=== PATIENT | female | born 1970 | race Caucasian/White ===

== ENCOUNTER 2023-10-14 21:51 | Emergency (ER) | payer OTHER, SELFPAY ==
[2023-10-14 22:01] VITALS: BP 164/102; PULSE 100; RESP 16; TEMP 36.6; O2SAT 100; BMI 32.7
--- NOTE | 2023-10-14 22:21 | XR_ITS ---
The [address] [address] Patient Name: VERONICA NATION MRN: [id number] date: 1970 Sex: F Assigned Patient Location: ED.MAIN Current Patient Location: ER Accession/Order Number: [id number] Exam Date: 10/14/2023 22:45 Report Date: 10/14/2023 23:36 At the request of: SCAR BAILEY Procedure: XR foot RT min 3V EXAM: XR foot RT min 3V HISTORY: The patient is a 52-year-old female, injury COMPARISON: None. FINDINGS: The right foot is radiographically negative with no evidence of fracture, dislocation, joint space narrowing, osteophytes, or other osseous or articular abnormalities. XR/XR foot RT min 3V IMPRESSION: Radiographically negative right foot. Electronically authenticated by: CORINNE WADE Date: 10/14/2023 23:36
--- NOTE | 2023-10-14 22:21 | CT_ITS ---
The [address] [address] Patient Name: VERONICA NATION MRN: [id number] date: 1970 Sex: F Assigned Patient Location: ER Current Patient Location: ER Accession/Order Number: [id number] Exam Date: 10/14/2023 22:45 Report Date: 10/14/2023 23:57 At the request of: SCAR BAILEY Procedure: CT abdomen pelvis w con EXAM: CT abdomen pelvis w con HISTORY: injury. R CVA pain COMPARISON: None. TECHNIQUE: Intravenous contrast-enhanced axial CT of the abdomen and pelvis was performed with coronal and sagittal reformats provided. FINDINGS: Lung bases: See same day chest CT for further details. ABDOMEN: Liver: Normal. Gallbladder/biliary: Status post cholecystectomy. Pancreas: Normal. Spleen: Normal. Adrenals: Normal. Kidneys, ureters and urinary bladder: Normal. Pelvis: Normal size of the uterus. No adnexal masses. Vasculature: Normal. Hollow viscera/retroperitoneum: Normal appearance of the gastroesophageal junction. The small bowel is normal caliber. Appendix is normal. No focal colonic wall thickening. No mesenteric or pelvic lymphadenopathy. No intra-abdominal free fluid or free air. Musculoskeletal/soft tissues: Soft tissues are within normal limits. No acute fracture or aggressive osseous abnormality. CT/CT abdomen pelvis w con IMPRESSION: No acute intra-abdominal or pelvic abnormality. Electronically authenticated by: AKHIL GOINS Date: 10/14/2023 23:57
--- NOTE | 2023-10-14 22:21 | XR_ITS ---
The [address] [address] Patient Name: VERONICA NATION MRN: [id number] date: 1970 Sex: F Assigned Patient Location: ED.MAIN Current Patient Location: ER Accession/Order Number: [id number] Exam Date: 10/14/2023 22:45 Report Date: 10/14/2023 23:42 At the request of: SCAR BAILEY Procedure: XR ankle RT min 3V EXAM: XR ankle RT min 3V HISTORY: The patient is a 52-year-old female, injury COMPARISON: None. FINDINGS: There is a small chronic appearing ununited ossicle off the tip of the medial malleolus. No acute fractures are seen within or around the ankle joint. The ankle mortise is intact and uniform. The syndesmosis is maintained. No soft tissue swelling is seen. XR/XR ankle RT min 3V IMPRESSION: No radiographic findings of acute trauma of the right ankle. Electronically authenticated by: CORINNE WADE Date: 10/14/2023 23:42
--- NOTE | 2023-10-14 22:21 | CT_ITS ---
The [address] [address] Patient Name: VERONICA NATION MRN: [id number] date: 1970 Sex: F Assigned Patient Location: ER Current Patient Location: ER Accession/Order Number: [id number] Exam Date: 10/14/2023 22:45 Report Date: 10/14/2023 23:41 At the request of: SCAR BAILEY Procedure: CT lumbar spine wo con EXAM: CT lumbar spine wo con HISTORY: The patient is a 52-year-old female, injury COMPARISON: None. TECHNIQUE: CT images were obtained through the lumbar spine without intravenous contrast and reformatted in 2 dimensions. Dose reduction techniques were achieved by using automated exposure control and/or adjustment of mA and/or kV according to patient size and/or use of iterative reconstruction technique. FINDINGS: The axial images demonstrate no fractures or cortical discontinuities throughout the lumbar spine. The alignment of the sacroiliac joints is maintained. The coronal and sagittal reformatted images demonstrate no fractures or loss of vertebral body height throughout the lumbar spine. There is mild congenital wedging of the L1 vertebral body. There is no malalignment throughout the lumbar spine. There is mild narrowing of the L4-L5 disc. The soft tissue images demonstrate evidence of a disc herniation and posterior element hypertrophy at the L4-L5 level. If clinically necessary, the degree of central canal stenosis and neural foraminal narrowing could be better evaluated with an MRI of the lumbar spine. CT/CT lumbar spine wo con IMPRESSION: 1. No fractures or loss of vertebral body height throughout the lumbar spine. 2. Degenerative disc disease at the L4-L5 level. Electronically authenticated by: CORINNE WADE Date: 10/14/2023 23:41
--- NOTE | 2023-10-14 22:21 | XR_ITS ---
The [address] [address] Patient Name: VERONICA NATION MRN: [id number] date: 1970 Sex: F Assigned Patient Location: ED.MAIN Current Patient Location: ER Accession/Order Number: [id number] Exam Date: 10/14/2023 22:45 Report Date: 10/14/2023 23:34 At the request of: SCAR BAILEY Procedure: XR knee RT 3V EXAM: XR knee RT 3V HISTORY: The patient is a 52-year-old female, injury COMPARISON: None. XR/XR knee RT 3V IMPRESSION: No fractures or dislocations are seen throughout the right knee. Small osteophytes are present indicating early tricompartment osteoarthritis. Electronically authenticated by: CORINNE WADE Date: 10/14/2023 23:34
--- NOTE | 2023-10-14 22:21 | CT_ITS ---
The [address] [address] Patient Name: VERONICA NATION MRN: [id number] date: 1970 Sex: F Assigned Patient Location: ED.MAIN Current Patient Location: ER Accession/Order Number: [id number] Exam Date: 10/14/2023 22:45 Report Date: 10/14/2023 23:48 At the request of: SCAR BAILEY Procedure: CT chest w con EXAM: CT chest w con HISTORY: injury COMPARISON: None. TECHNIQUE: Intravenous Contrast-enhanced axial CT of the chest was performed with coronal and sagittal reformats provided. FINDINGS: Neck/mediastinum: Imaged thyroid is normal. No supraclavicular, axillary, mediastinal or hilar lymphadenopathy. Cardiovascular: Normal heart size without pericardial effusion or thickening. Normal caliber of the ascending thoracic aorta and the main pulmonary artery. No central filling defects within the main or lobar branches of the pulmonary arteries. No aortic dissection. Lungs/pleura/airways: Trachea and mainstem bronchi are clear. No pneumothorax, pleural effusion or consolidation. Atelectasis or scarring of the lingula. No concerning pulmonary nodules. Upper abdomen: See same day abdomen pelvis CT for further details. Musculoskeletal/soft tissues: Soft tissues within normal limits. No acute fracture or aggressive osseous abnormality. CT/CT chest w con IMPRESSION: No acute cardiopulmonary process. Electronically authenticated by: AKHIL GOINS Date: 10/14/2023 23:48
--- NOTE | 2023-10-14 22:25 | ED.FALL1 ---
HPI - Fall General Chief Complaint: Fall Stated Complaint: FALL Time Seen by Provider: 10/14/23 22:17 Source: patient Mode of arrival: Wheelchair History of Present Illness HPI Narrative: patient states there were chair placed to block the dogs from getting through. She was stepping around the chairs when she got her foot caught and fell landing on her right side. Complains of pain of her back, right hip, knee and ankle. Denies striking her head. no chest pain or dyspnea. No abdominal pain or nausea Onset (ago): hour(s) Related Data Allergies Allergy/AdvReac Type Severity Reaction Status Date / Time codeine AdvReac Verified 10/14/23 22:00 naproxen [From Naprosyn] AdvReac Verified 10/14/23 22:00 Review of Systems ROS Status of ROS 10 or more systems reviewed and unremarkable except as noted in history and below [facility] Social History Smoking status: Former smoker Exam Constitutional Vital Signs, click to edit/add: Last Vital Signs Temp 97.8 F 10/14/23 22:01 Pulse 100 H 10/14/23 22:01 Resp 16 10/14/23 22:01 BP 142/89 H 10/15/23 00:06 Pulse Ox 100 10/14/23 22:01 O2 Del Method Room Air 10/14/23 22:01 Common normals: no apparent distress, average body habitus, oriented x3, no limitations, healthy appearing, alert and well nourished [facility] Common normals: normocephalic and head/scalp atraumatic Other: C-spine nontender Eye Common normals: EOMs intact bilaterally and conjunctivae normal Chest Other: right midaxillary chest wall tenderness Respiratory Common normals: normal respiratory effort, no retractions and no use of accessory muscles GI Common normals: Normal to inspection, nondistended, normoactive bowel sounds present and soft to palpation Back & Pelvis Other: right CVA tenderness Extremity Other: right hip, knee and ankle tender. no swelling or deformity Neuro Common normals: oriented x3, CN's II-XII intact bilaterally, moves all extremities and no focal motor deficits Psych Appearance: grossly normal Course Vital Signs Vital signs: Vital Signs Temperature 97.8 F 10/14/23 22:01 Pulse Rate 100 H 10/14/23 22:01 Respiratory Rate 16 10/14/23 22:01 Blood Pressure 164/102 H 10/14/23 22:01 Pulse Oximetry 100 10/14/23 22:01 Oxygen Delivery Method Room Air 10/14/23 22:01 Temperature 97.8 F 10/14/23 22:01 Pulse Rate 100 H 10/14/23 22:01 Respiratory Rate 16 10/14/23 22:01 Blood Pressure 142/89 H 10/15/23 00:06 Pulse Oximetry 100 10/14/23 22:01 Oxygen Delivery Method Room Air 10/14/23 22:01 MDM - Fall MDM Narrative Medical decision making narrative: patient step around a chair at home and got her foot caught in the chair and fell landing on her right side. Has pain of her right back. hip , right knee and ankle. Denies striking her head. No numbness or weakness of her extremities. diagnostic studies all neg. Patient and her informed of the diagnosis of musculoskeletal strain, contusion injuries. Discharged home in stable condition to follow up with her doctor Lab Data Labs: Lab Results 10/14/23 Range/Units 22:45 WBC 9.7 (4.0-11.0) 10^3/uL RBC 3.78 L (4.20-5.40) 10^6/uL Hgb 11.4 L (12.0-16.0) g/dL Hct 35.0 L (36.0-48.0) % MCV 92.6 (81.0-99.0) fL MCH 30.2 (26.7-34.0) pg MCHC 32.6 (29.9-35.2) g/dL RDW 12.5 (11.0-15.0) % Plt Count 330 (150-450) 10^3/uL MPV 10.4 (9.5-13.5) fL Neut % (Auto) 56.4 (43.0-75.0) % Lymph % (Auto) 33.0 (20.5-60.0) % [place] % (Auto) 6.2 (1.7-12.0) % Eos % (Auto) 3.0 (0.9-7.0) % Baso % (Auto) 1.1 (0.2-2.0) % Neut # (Auto) 5.5 (1.4-6.5) 10^3/uL Lymph # (Auto) 3.2 (1.2-3.8) 10^3/uL [place] # (Auto) 0.6 (0.3-0.8) 10^3/uL Eos # (Auto) 0.3 (0.0-0.7) 10^3/uL Baso # (Auto) 0.1 (0.0-0.1) 10^3/uL Abs Immat Gran (auto) 0.03 (0.00-0.03) 10^3/uL Imm/Tot Granulo (auto) 0.3 (0.0-0.5) % Sodium 135 L (136-145) mmol/L Potassium 4.5 (3.5-5.1) mmol/L Chloride 101 (98-107) mmol/L Carbon Dioxide 29.6 (21.0-32.0) mmol/L Anion Gap 8.9 BUN 28.0 H (7.0-18.0) mg/dL Creatinine 1.28 H (0.55-1.02) mg/dL Est GFR ( Amer) 53 L (>=60) Est GFR (Non-Af Amer) 43 L (>=60) BUN/Creatinine Ratio 21.9 Glucose 219 H (74-106) mg/dL Calcium 9.0 (8.5-10.1) mg/dL Total Bilirubin 0.2 (0.2-1.0) mg/dL AST 14 L (15-37) U/L ALT 24 (14-59) U/L Alkaline Phosphatase 79 (46-116) U/L Total Protein 7.5 (6.4-8.2) g/dL Albumin 3.2 L (3.4-5.0) g/dL Globulin 4.3 g/dL Albumin/Globulin Ratio 0.7 Discharge Plan Discharge Chief Complaint: Fall Clinical Impression: Contusion of knee, Back strain, Contusion of rib, Contusion of hip, right, Ankle strain Patient Disposition: Home, Self-Care Instructions: Low Back Strain (ED), Contusion in Adults (ED), Hip Contusion (ED), Ankle Strain (ED) Stand Alone Forms: Portal Instructions Referrals: AILYN WILLIS [Primary Care Provider] - 1 week
[2023-10-14 23:00] LABS: Basophils Absolute Auto 0.1 10^3/uL (0.0-0.1); Basophils Percent Auto 1.1 % (0.2-2.0); Eosinophils Absolute Auto 0.3 10^3/uL (0.0-0.7); Hemoglobin 11.4 g/dL (12.0-16.0); Immature Granulocytes Abs Auto 0.03 10^3/uL (0.00-0.03); Immature Granulocytes Pct Auto 0.3 % (0.0-0.5); Lymphocytes Absolute Auto 3.2 10^3/uL (1.2-3.8); Mean Corpuscular HGB Conc 32.6 g/dL (29.9-35.2); Mean Corpuscular Hemoglobin 30.2 pg (26.7-34.0); Mean Corpuscular Volume 92.6 fL (81.0-99.0); Mean Platelet Volume 10.4 fL (9.5-13.5); Monocytes Absolute Auto 0.6 10^3/uL (0.3-0.8); Monocytes Percent Auto 6.2 % (1.7-12.0); Neutrophils Absolute Auto 5.5 10^3/uL (1.4-6.5); Neutrophils Percent Auto 56.4 % (43.0-75.0); Platelet Count 330 10^3/uL (150-450); Red Blood Count 3.78 10^6/uL (4.20-5.40); Red Cell Distribution Width 12.5 % (11.0-15.0); White Blood Count 9.7 10^3/uL (4.0-11.0)
[2023-10-14 23:16] LABS: Alanine Aminotransferase 24 U/L (14-59); Albumin Globulin Ratio 0.7; Albumin Level 3.2 g/dL (3.4-5.0); Alkaline Phosphatase 79 U/L (46-116); Anion Gap 8.9; Aspartate Amino Transferase 14 U/L (15-37); BUN Creatinine Ratio 21.9; Bilirubin Total 0.2 mg/dL (0.2-1.0); Carbon Dioxide 29.6 mmol/L (21.0-32.0); Chloride 101 mmol/L (98-107); Estimated GFR (African America 53 (>=60); Estimated GFR (Non-African Ame 43 (>=60); Globulin 4.3 g/dL; Glucose 219 mg/dL (74-106); Potassium 4.5 mmol/L (3.5-5.1); Sodium 135 mmol/L (136-145); Total Protein 7.5 g/dL (6.4-8.2)
[2023-10-14] MEDS: MORPHINE SULFATE 2 MG/ML SYRINGE IV (23:28)
[2023-10-15 00:06] VITALS: BP 142/89
== END 2023-10-15 01:14 | disposition home or self-care (01) ==
PROVIDERS: Emergency Provider Internal Medicine; PCP Family Medicine
DX: S70.01XA Contusion of right hip, initial encounter (principal); S80.01XA Contusion of right knee, initial encounter; S39.012A Strain of muscle, fascia and tendon of lower back, initial encounter; S96.911A Strain of unspecified muscle and tendon at ankle and foot level, right foot, initial encounter; S20.211A Contusion of right front wall of thorax, initial encounter; W01.10XA Fall on same level from slipping, tripping and stumbling with subsequent striking against unspecified object, initial encounter; Z87.891 Personal history of nicotine dependence
CPT/HCPCS: 36415; 71260; 72131; 73562; 73610; 73630; 74177; 80053; 85025; 99283; Q9967

== ENCOUNTER 2024-08-07 09:57 | Emergency (ER) | payer BC, SELFPAY ==
[2024-08-07 09:59] VITALS: BP 166/95; PULSE 140; TEMP 36.3; O2SAT 98; BMI 32.7
--- OUTSIDE RECORDS SUMMARY | 2024-08-07 10:16 | XMS_ITS | CCD ---
Author Organization [facility] Care Team Providers Care Access Specialist Name Role Phone Ailyn Willis Primary Care Provider Unavailab le Jake House Attending Provider Unavailable KIANA MCKINNON Referring Unavailable LAZARO, AILYN Primary Care Unavailable KIANA MCKINNON Referring Unavailable LAZARO, AILYN Primary Care Unavailable KIANA MCKINNON Referring Unavailable AILYN WILLIS Primary Care Unavailable Lazaro BOURGEOIS, Ailyn Primary Care Provider Unavaila ble ARIADNA, MARLIN S Referring Unavailable WILLIS, AILYN Primary Care Unavailable ARIADNA, MARLIN S Referring Unavailable WILLIS, AILYN Primary Care Unavailable ARIADNA, MARLIN S Referring Unavailable WILLIS, AILYN Primary Care Unavailable ARIADNA, MARLIN S Referring Unavailable WILLIS, AILYN Primary Care Unavailable ARIADNA, MARLIN S Referring Unavailable WILLIS, AILYN Primary Care Unavailable ARIADNA, MARLIN S Referring Unavailable WILLIS, AILYN Primary Care Unavailable ARIADNA, MARLIN S Referring Unavailable WILLIS, AILYN Primary Care Unavailable Mapus, Tondra Unavailable Ailyn Willis Unavailable Marlin Ivan Unavailable DO Ailyn Willis Primary Care Provider [place], [employer] Tondra K Attending Provider [phone] DO Ailyn Willis Primary Care Provider [place], [employer] Tondra K Attending Provider [phone] DO Ailyn Willis Primary Care Provider [place], [employer] Tondra K Attending Provider [phone] MD Char Nuñez Attending Provider Paty Guaman Unavailable Hernesto Mckenzie Admitting Unavail able Hernesto Mckenzie Attending Unavail able AILYN WILLIS Primary Care Unavailable Navya Atkinson Unavailable DO Ailyn Willis Primary Care Provider MD Char Nuñez Attending Provider MapSWATHI miller Tondra K Referring Provider SWATHI House Attending Provider DO Ailyn Willis Primary Care Provider DO Ailyn Willis Attending Provider Ailyn Willis Admitting Unavailable Ailyn Willis Attending Unavailable Ailyn Willis Primary Care Unavailable Char Nuñez Admitting Unavailable Char Nuñez Attending Unavailable Lacy, Tondra K Referring Unavailable Ailyn Willis Primary Care Unavailable Ailyn Willis Consulting Unavailable Mapus, Tondra K Admitting Unavailable Mapus, Tondra K Attending Unavailable Ailyn Willis Primary Care Unavailable Mapus, Tondra K Admitting Unavailable [place], Tondra K Attending Unavailable Ailyn Willis Primary Care Unavailable Unavailable Unavailable Unavailable Allergies Allergy Classification Reported Allergen(s) Allergy Type Date of Onset Reaction(s) Facility (20 sources) Codeine; Translations: [codeine] Drug Allergy 12-25-2018 Rash, Unknown [facility] (20 sources) Naproxen; Translations: [naproxen] Drug Allergy 12-25-2018 Anaphylaxis, Unknown [facility] Medications Current Medications Medication Drug Class(es) Dates Sig (Normalized) Sig (Original) 0.5 ML tirzepatide 5 MG/ML Auto-Injector [Mounjaro] (2 sources) Start: 10-06-2023 inject 2.5 mg by subcutaneous injection every week Mounjaro 2.5 MG/0.5ML 2.5mg Subcutaneous once weekly for 28 days Sep, Active 8 hr acetaminophen 650 mg extended release oral tablet (20 sources) Start: 01-12-2024 take 1 tablet by mouth every twelve hours Acetaminophen (Tylenol Arthritis Pain) 650 mg tablet extended release Active 650 MG PO Every 12 hours January 12, 2024 12:00am take 2 tablets by mo ut every eight hours Acetaminophen ER 650 MG 2 tablets as nee ded Orally every 8 hrs PRN Active take 2 tablets by mo uth every eight hours as needed Acetaminophen ER 650 MG 2 tablets as nee ded Orally every 8 hrs PRN Active Blood-Glucose Sensor (Dexcom G6 Sensor) device (2 sources) Start: 12-27-2023 Blood-Glucose Sensor (Dexcom G6 Sensor) device Active 0 .MEDSUPPLY December 27, 2023 1:00am As directed SQ, Change every 10 days Blood-Glucose Transmitter (Dexcom G6 Transmitter) device (2 sources) Start: 12-27-2023 Blood-Glucose Transmitter (Dexcom G6 Transmitter) device Active 0 .Route 1 December 27, 2023 1:00am As directed SQ, Change every 90 days cetirizine hydrochloride 10 mg oral tablet (20 sources) Histamine-1 Receptor Antagonist take 1 tablet by mouth once daily ZyrTEC Allergy 10 MG 1 tablet Orally Once a day Active cholecalciferol 0.05 mg oral capsule (8 sources) Vitamin D Start: 11-18-2018 take 1 capsule by mouth once daily Cholecalciferol (Vitamin D3) (Vitamin D3) 2,000 unit Capsule Active 2000 UNIT PO Daily November 18, 2018 1:00am FreeStyle Kellen 2 Sensor - (9 sources) FreeStyle Kellen 2 Sensor - USE DIRECTED WITH KELLEN READER TO CHECK GLUCOSE BEFORE A MEAL, EVERY NIGHT AT BEDTIME, AND NEEDED - CHANGE EVERY 14 DAYS for 28 Active FreeStyle Kellen 2 Sensor Systm - (18 sources) FreeStyle Kellen 2 Sensor Systm - as directed use with kellen reader change q 14 days, check glucose ac, hs and prn for 84 days Active FreeStyle Precision James Test - (20 sources) FreeStyle Precis ion James Test - use with Freestyle Kellen SQ tid prn Active FreeStyle Precis ion James Test - USE WITH FREESTYLE KELLEN TO TEST THREE TIMES A DAY NEEDED for 90 Active 0.2 ml glucagon 5 mg/ml auto-injector (4 sources) Antihypoglycemic Agent Start: 12-15-2022 Gvoke HypoPen 2-Pack 1 MG/0.2ML as directed Subcutaneous prn hypoglycemia may repeat in 15 minutes for 1 days Dec, Active 3 ml insulin degludec 100 unt/ml pen injector (2 sources) Insulin Analog Start: 10-06-2023 inject 31 [IU] by subcutaneous injection once daily Tresiba FlexTouch 100 UNIT/ML 31 units daily if off insulin pump. Must wait 24 hours after last dose before restarting insulin pump Subcutaneous as directed Sep, Active Insulin Lispro (Humalog U-100 Insulin) 100 unit/mL solution (2 sources) Start: 01-12-2024 inject 90 [IU] by subcutaneous injection once daily Insulin Lispro (Humalog U-100 Insulin) 100 unit/mL solution Active 0 SUBCUT .COMPLEX January 12, 2024 12:00am 90 units insulin pump daily Subcutaneous As Directed; Insulin Pump Cart,Automated,Bt (Omnipod 5 G6 Pods (Gen 5)) cartridge (7 sources) Start: 04-23-2024 Insulin Pump Cart,Automated,B t (Omnipod 5 G6 Pods (Gen 5)) cartridge Active 0 .ROUTE .COMPLEX April 23, 2024 9:56am use as directed with OMNIPOD SYSTEM - CHANGE every 72 hours Start: 03-23-2024 End: 04-23-2024 Insulin Pump Cart,Automated, Bt (Omnipod 5 G6 Pods (Gen 5)) cartridge Discontinued 0 .ROUTE .COMPLEX March 23, 2024 7:36am April 23, 2024 9:56am USE DIRECTED WITH OMNIPOD SYSTEM SUBCUTANEOUSLY - CHANGE EVERY 72 HOURS Start: 02-13-2024 End: 03-23-2024 Insulin Pump Cart,Automated, Bt (Omnipod 5 G6 Pods (Gen 5)) cartridge Discontinued 0 .Route 2 February 13, 2024 10:17am March 23, 2024 7:37am As directed Use with OmniPod system SQ, Change every 72 hours Start: 12-27-2023 End: 02-13-2024 Insulin Pump Cart,Automated, Bt (Omnipod 5 G6 Pods (Gen 5)) cartridge Discontinued 0 .Route 6 December 27, 2023 4:16pm February 13, 2024 10:19am As directed Use with OmniPod system SQ, Change every 72 hours Start: 12-27-2023 Insulin Pump C art,Automated,Bt (Omnipod 5 G6 Pods (Gen 5)) cartridge Active 0 .Route 6 December 27, 2023 4:16pm As directed Use with OmniPod system SQ, Change every 72 hours Start: 12-27-2023 End: 12-27-2023 Insulin Pump Cart,Automated, Bt (Omnipod 5 G6 Pods (Gen 5)) cartridge Discontinued 0 .Route December 27, 2023 1:00am December 27, 2023 4:18pm As directed levothyroxine sodium 0.15 mg oral tablet (20 sources) l-Thyroxine Start: 01-02-2024 take 1 tablet by mouth once daily Levothyroxine (Synthroid) 150 mcg tablet Active 150 MCG PO Daily January 02, 2024 1:00am Start: 08-31-2022 take 1 tablet by gail th once daily in the morning Levothyroxine Sodium 150 MCG 1 tablet in the morning on an empty stomach Orally Once a day for 90 day(s) stop levothyroxine 175mcg dose Aug, Active Start: 11-18-2018 End: 01-02-2024 take 1 tablet by mouth once daily Levothyroxine (Synthroid) 137 mcg Tablet Discontinued 137 MCG PO Daily November 18, 2018 1:00am January 02, 2024 10:09am Levothyroxine So dium 137 MCG take 1 tablet by mouth every morning ON AN EMPTY STOMACH Orally Once a day for 90 days Active take 1 tablet by gail th once daily in the morning Levothyroxine Sodium 175 MCG 1 tablet on an empty stomach in the morning orally daily for 90 day(s) Active magnesium oxide 400 mg oral capsule (20 sources) Start: 11-18-2018 take 400 mg by mouth once daily Magnesium Oxide Active 400 MG PO Daily November 18, 2018 1:00am take 1 capsule by mouth once farrah ly Magnesium Oxide 400 MG 1 capsule Orally Once a day Active 24 hr metoprolol succinate 50 mg extended release oral tablet (20 sources) beta-Adrenergic Joelle Start: 01-02-2024 End: 01-02-2024 take 50 mg by mouth once daily Metoprolol Succinate Active 50 MG PO Daily 90 January 02, 2024 10:29am Start: 11-18-2018 End: 01-02-2024 take 50 mg by mouth once daily Metoprolol Tartrate Dis continued 50 MG PO Daily November 18, 2018 1:00am January 02, 2024 10:29am Metoprolol Succi maddison ER 50 mg TAKE 1 TABLET DAILY (NEEDS AN APPOINTMENT IN 2021) Active Omnipod 5 G6 Pod (Gen 5) - (19 sources) Start: 06-29-2022 Omnipod 5 G6 P od (Gen 5) - Use with OmniPod 5 system SQ Change every 72 hours for 90 day(s) E11.8 May, Active Omnipod 5 G6 Pod (Gen 5) - Use with OmniPod 5 system SQ Change every 72 hours for 90 day(s) Active predniSONE 20 mg oral tablet (5 sources) Start: 07-07-2022 take 1 tablet by mouth every twelve hours predniSONE 20 MG 1 tablet Orally 2 times a day for 5 day(s) Jul, Active vitamin b12 1 mg oral capsule (2 sources) Vitamin B12 Start: 01-12-2024 take 1000 ug by mouth once daily Cyanocobalamin (Vitamin B-12) Active 1000 MCG PO daily January 12, 2024 12:00am Vitamin D 2000 UNIT (20 sources) Vitamin D 2000 U NIT Orally Active Vitamin D 2000 U NIT Orally Not-Taking Completed/Discontinued Medications Medication Drug Class(es) Dates Sig (Normalized) Sig (Original) acetaminophen 325 mg / HYDROcodone bitartrate 5 mg oral tablet (6 sources) Opioid Agonist Start: 11-18-2018 End: 12-25-2018 take 1 tablet by mouth every four hours Hydrocodone-Aceta minophen ([place]) 5-325 mg tablet Discontinued 1 TAB PO Q4H 10 2 November 18, 2018 December 25, 2018 7:53pm amoxicillin 875 mg oral tablet (6 sources) Penicillin-class Antibacterial Start: 12-12-2018 End: 12-25-2018 take 875 mg by mouth twice daily Amoxicillin Discontinued 875 MG PO Twice daily December 12, 2018 1:00am December 25, 2018 7:53pm atorvastatin 20 mg oral tablet (20 sources) HMG-CoA Reductase Inhibitor Start: 11-18-2018 End: 01-06-2024 take 20 mg by mouth once daily Atorvastatin Discontinued 20 MG PO Daily January 02, 2024 10:27am January 06, 2024 1:26pm B-12 - up to 1000 mcg (20 sources) Start: 02-22-2013 B-12 - up to 1000 mcg Jan, 1 biotin 1 mg oral capsule (8 sources) Start: 11-18-2018 End: 01-12-2024 take 1 mg by mouth once daily Biotin Discontinued 1 MG PO Daily November 18, 2018 1:00am January 12, 2024 7:57am Cetirizine / Pseudoephedrine (6 sources) alpha-Adrenergic Agonist, Histamine-1 Receptor Antagonist Start: 01-06-2024 End: 05-01-2024 take 1 tablet by mouth once Cetirizine-Pseudo ephedrine Discontinued 1 TAB PO Once January 06, 2024 1:26pm May 01, 2024 7:38am Start: 01-06-2024 take 1 tablet by gail th once Cetirizine-Pseudoephedrine Active 1 TAB PO Once January 06, 2024 1:26pm Start: 01-02-2024 End: 01-06-2024 take 1 tablet by mouth once Cetirizine-Pseudoephedrine Discontinued 1 TAB PO Once January 02, 2024 10:27am January 06, 2024 1:26pm Start: 01-02-2024 End: 01-02-2024 take 1 tablet by mouth once Cetirizine-Pseudoephedrine Discontinued 1 TAB PO Once January 02, 2024 1:00am January 02, 2024 10:29am cranberry preparation 250 mg oral capsule (20 sources) Non-Standardized Food Allergenic Extract, Non-Standardized Plant Allergenic Extract Cranberry 250 MG Ora lly prn PRN Not-Taking Cranberry 250 MG Orally prn PRN Active Cranberry 250 MG Orally prn PRN Active cyclobenzaprine hydrochloride 10 mg oral tablet (8 sources) Muscle Relaxant Start: 11-18-2018 End: 01-02-2024 take 10 mg by mouth three times daily Cyclobenzaprine Discontinued 10 MG PO Three times daily November 18, 2018 1:00am January 02, 2024 10:06am diclofenac sodium 0.01 mg/mg topical gel (6 sources) Nonsteroidal Anti-inflammatory Drug Start: 12-12-2018 End: 12-25-2018 Diclofenac Sodium (Voltaren) 1 % gel Discontinued 4 GM TOPICAL Four times daily December 12, 2018 1:00am December 25, 2018 7:53pm Apply to R knee for pain (max 16 gr per day) [email or web address] 2 [place] - (17 sources) Start: 06-26-2021 FreeStyle Kellen 2 [place] - as directed In Vitro Daily for 365 days May, Not-Taking Start: 06-26-2021 FreeStyle Libr e 2 [place] - as directed In Vitro Daily for 365 days May, Active 3 ml insulin lispro 100 unt/ml cartridge (20 sources) Insulin Analog Start: 12-12-2018 End: 01-12-2024 Insulin Lispro (Humalog U-100 Insulin) 100 unit/mL Cartridge Discontinued December 12, 2018 1:00am January 12, 2024 7:54am inject 90 [IU] by hooker bcutaneous injection once daily HumaLOG 100 UNIT/ML 90 units insulin pum p daily Subcutaneous As Directed for 90 days Active inject 100 [IU] by s ubcutaneous injection once daily HumaLOG 100 UNIT/ML 100 units/day insuli n pump SQ as directed for 90 day(s) Active inject 100 [IU] by s ubcutaneous injection once Humalog U100 100 units/day per Pump SQ daily for 90 day(s) Active inject 100 [IU] by s ubcutaneous injection once Humalog U100 100 units/day per Pump SQ daily Active lisinopril 10 mg oral tablet (8 sources) Angiotensin Converting Enzyme Inhibitor Start: 11-18-2018 End: 01-02-2024 take 10 mg by mouth once daily Lisinopril Discontinued 10 MG PO Daily November 18, 2018 1:00am January 02, 2024 10:09am losartan potassium 25 mg oral tablet (20 sources) Angiotensin 2 Receptor Joelle Start: 01-02-2024 End: 01-06-2024 take 25 mg by mouth once daily Losartan Discontinued 25 MG PO Daily January 02, 2024 10:27am January 06, 2024 1:26pm Losartan Potassi um 25 mg TAKE 1 TABLET DAILY Active omeprazole 20 mg delayed release oral tablet (20 sources) Proton Pump Inhibitor Start: 11-18-2018 End: 01-06-2024 take 20 mg by mouth once daily Omeprazole Discontinued 20 MG PO Daily January 02, 2024 10:30am January 06, 2024 1:26pm take 1 capsule by [facility] every twenty-four hours Omeprazole 20 MG 1 capsule Orally Once a day Active Omnipod 5 G6 Intro (Gen 5) - (13 sources) Start: 06-29-2022 Omnipod 5 G6 I ntro (Gen 5) - Use with OmniPod 5 system SQ once for 365 days E11.8 May, Not-Taking Start: 06-29-2022 Omnipod 5 G6 I ntro (Gen 5) - Use with OmniPod 5 system SQ once for 365 days E11.8 30 May, 2022 Active promethazine hydrochloride 25 mg oral tablet (20 sources) Phenothiazine Start: 12-25-2018 End: 01-02-2024 take 25 mg by mouth every six hours Promethazine Discontinued 25 MG PO Q6H December 25, 2018 1:00am January 02, 2024 10:09am Start: 03-03-2015 take 1 tablet by gail th every twelve hours Promethazine HCl 25 MG 1 tablet as needed Orally every 12 hrs for 30 day(s) PRN February, Not-Taking Tirzepatide (4 sources) Start: 01-12-2024 End: 05-01-2024 Tirzepatide (Mounjaro) 2.5 m g/0.5 mL pen injector Discontinued 2.5 MG SUBCUT every week January 12, 2024 7:57am May 01, 2024 7:39am Start: 01-12-2024 Tirzepatide (M ounjaro) 2.5 mg/0.5 mL pen injector Active 2.5 MG SUBCUT every week January 12, 2024 7:57am Start: 01-02-2024 End: 01-12-2024 inject 2.5 mg by subcutaneous injection every week Tirzepatide (Mounjaro) 2.5 mg/0.5 mL pen injector Discontinued 2.5 MG SUBCUT January 02, 2024 1:00am January 12, 2024 7:59am FreeTextSi.5mg Subcutaneous once weekly; Note: Source Status: baljit doshi in office; Provider: Lacy Renteria {10 (nirmatrelvir 150 MG Oral Tablet) / 10 (ritonavir 100 MG Oral Tablet) } Pack [Paxlovid 150 MG /100 MG Dose Pack] (1 source) Start: 04-12-2023 take 1 dose by mouth twice daily Paxlovid (150/100) 10 x 150 MG & 10 x 100MG 1 dose Orally twice a day for 5 days 13 Mar, 2023 Not-Taking Problems Active Problems Problem Classification Problem Date Documented Date Episodic/Chronic Administrative/socia l admission (10 sources) Dietary counseling and surveillance; Translations: [Patient encounter status] Onset: 1 Resolved: 2 Episodic Chronic kidney disease (20 sources) Chronic kidney disease stage 3; Translations: [Chronic kidney disease, stage 3 (moderate)] Chronic Deficiency and other anemia (20 sources) Anemia of renal disease; Translations: [Anemia in chronic kidney disease] 01-02-2024 Chronic Diabetes mellitus with complications (20 sources) Disorder due to type 2 diabetes mellitus; Translations: [Type 2 diabetes mellitus with unspecified complications] Onset: 1 Resolved: 2 Chronic Diabetes mellitus without complication (20 sources) Patient encounter status; Translations: [Encounter for fitting and adjustment of insulin pump] Onset: 1 Resolved: 2 Chronic Diabetes mellitus without complication (20 sources) Insulin pump present; Translations: [Presence of insulin pump (external) (internal)] 01-12-2024 Episodic Diabetes mellitus without complication (1 source) Diabetes mellitus without complication; Translations: [Type 2 diabetes mellitus with diabetic chronic kidney disease] Onset: 3 Disorders of lipid metabolism (20 sources) Hyperlipidemia; Translations: [Hyperlipidemia, unspecified] Onset: 1 Resolved: 2 Chronic Essential hypertension (20 sources) Essential hypertension; Translations: [Essential (primary) hypertension] Onset: 1 Resolved: 2 Chronic Hypertension with complications and secondary hypertension (20 sources) Hypertensive renal disease; Translations: [Hypertensive chronic kidney disease with stage 1 through stage 4 chronic kidney disease, or unspecified chronic kidney disease] 01-02-2024 Chronic Nutritional deficiencies (20 sources) Vitamin D deficiency; Translations: [Vitamin D deficiency, unspecified] 01-02-2024 Chronic Nutritional deficiencies (6 sources) Deficiency of other specified B group vitamins Onset: 1 Resolved: 2 Episodic Other aftercare (20 sources) Long-term current use of insulin; Translations: [FCI (current) use of insulin] 01-02-2024 Episodic Other aftercare (7 sources) [facility] (current) use of insulin; Translations: [termite helper (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) use of insulin] Onset: 1 Resolved: 2 Episodic Other connective tissue disease (1 source) Pain in right toe(s) Episodic Other diseases of kidney and ureters (20 sources) Secondary hyperparathyroidism; Translations: [Secondary hyperparathyroidism of renal origin] 01-02-2024 Chronic Other endocrine disorders (10 sources) Hypoglycemia; Translations: [Hypoglycemia, unspecified] Chronic Other endocrine disorders (3 sources) Hypoglycemia, unspecified Chronic Other nutritional; endocrine; and metabolic disorders (20 sources) Obese class I; Translations: [Body mass index (BMI) 33.0-33.9, adult] Chronic Other nutritional; endocrine; and metabolic disorders (20 sources) Obese class II; Translations: [Body mass index (BMI) 35.0-35.9, adult] Chronic Other nutritional; endocrine; and metabolic disorders (20 sources) Body mass index 30+ - obesity; Translations: [Body mass index (BMI) 32.0-32.9, adult] 01-12-2024 Chronic Other nutritional; endocrine; and metabolic disorders (20 sources) Obesity; Translations: [Obesity, unspecified] Chronic Other nutritional; endocrine; and metabolic disorders (5 sources) Body mass index (BMI) 32.0-32.9, adult Onset: 1 Resolved: 2 Chronic Other nutritional; endocrine; and metabolic disorders (1 source) Body mass index (BMI) 33.0-33.9, adult Chronic Other nutritional; endocrine; and metabolic disorders (2 sources) Body mass index (BMI) 34.0-34.9, adult; Translations: [Body Mass Index 34.0-34.9, adult] 01-12-2024 Chronic Superficial injury; contusion (1 source) Contusion of right great toe without damage to nail, initial encounter Episodic Thyroid disorders (20 sources) Hypothyroidism; Translations: [Hypothyroidism, unspecified] Onset: 1 Resolved: 2 Chronic Past or Other Problems Problem Classification Problem Date Documented Da te Episodic/Chronic Allergic reactions (1 source) Unspecified contact dermatitis, unspecified cause Onset: 07-07-2022 Resolved: 07-07-2022 Episodic Genitourinary symptoms and ill-defined conditions (1 source) Proteinuria, unspecified Onset: 05-24-2022 Resolved: 05-24-2022 Episodic Other screening for suspected conditions (not mental disorders or infectious disease) (4 sources) Patient encounter status; Translations: [Encounter for screening mammogram for malignant neoplasm of breast] Onset: 02-25-2024 01-02-2024 Episodic Results Test Name Value Interpretation Reference Range Facility [facility] 08-04-2024 Albumin [Mass/Vol] 3.7 g/dL Normal 3.5-5.7 [facility] Comment on above: Performed By: #### L IPID, T4F, CMP, TSH3 wRFLX, URMACRERAT #### [address] Albumin/Globulin [Mass ratio] 1.2 {ratio} Normal [facility] Comment on above: Performed By: #### L IPID, T4F, CMP, TSH3 wRFLX, URMACRERAT #### [address] ALP [Catalytic activity/Vol] 75 U/L Normal 34-104 [facility] Comment on above: Performed By: #### L IPID, T4F, CMP, TSH3 wRFLX, URMACRERAT #### [address] ALT [Catalytic activity/Vol] 16 U/L Normal 7-52 [facility] Comment on above: Performed By: #### L IPID, T4F, CMP, TSH3 wRFLX, URMACRERAT #### [place] [address] [place] Anion gap [Moles/Vol] 8.8 mmol/L Normal 6.0-15.0 [facility] Comment on above: Performed By: #### L IPID, T4F, CMP, TSH3 wRFLX, URMACRERAT #### [address] AST [Catalytic activity/Vol] 17 U/L Normal 13-39 [facility] Comment on above: Performed By: #### L IPID, T4F, CMP, TSH3 wRFLX, URMACRERAT #### [facility] [address] [place] [address] Bilirubin [Mass/Vol] 0.6 mg/dL Normal 0.3-1.0 [facility] Comment on above: Performed By: #### L IPID, T4F, CMP, TSH3 wRFLX, URMACRERAT #### [address] Calcium [Mass/Vol] 9.2 mg/dL Normal 8.6-10.3 [facility] Comment on above: Performed By: #### L IPID, T4F, CMP, TSH3 wRFLX, URMACRERAT #### [address] Chloride [Moles/Vol] 105 mmol/L Normal 98-107 [facility] Comment on above: Performed By: #### L IPID, T4F, CMP, TSH3 wRFLX, URMACRERAT #### [address] CO2 [Moles/Vol] 28.2 mmol/L Normal 21.0-31.0 [facility] Comment on above: Performed By: #### L IPID, T4F, CMP, TSH3 wRFLX, URMACRERAT #### [address] Creatinine [Mass/Vol] 1.20 mg/dL Normal 0.60-1.20 [facility] Comment on above: Performed By: #### L IPID, T4F, CMP, TSH3 wRFLX, URMACRERAT #### [place] [address] [place] GFR/1.73 sq M.predicted MDRD (S/P/Bld) [Vol rate/Area] 53.458 mL/min/{1.73_m2} Normal [facility] Comment on above: Performed By: #### L IPID, T4F, CMP, TSH3 wRFLX, URMACRERAT #### [address] Globulin (S) [Mass/Vol] 3.2 g/dL Normal [facility] Comment on above: Performed By: #### L IPID, T4F, CMP, TSH3 wRFLX, URMACRERAT #### [address] Glucose [Mass/Vol] 138 mg/dL High 70-100 [facility] Comment on above: Result Comment: [place] Glucose Reference Range is dependent on time and content of last meal. Glucose of more than 200 mg/dL in a nonstressed, ambulatory subject supports the diagnosis of Diabetes Mellitus. ADA recommended reference range Performed By: #### L IPID, T4F, CMP, TSH3 wRFLX, URMACRERAT #### [address] Potassium [Moles/Vol] 5.0 mmol/L Normal 3.5-5.1 [facility] Comment on above: Performed By: #### L IPID, T4F, CMP, TSH3 wRFLX, URMACRERAT #### [address] Protein [Mass/Vol] 6.9 g/dL Normal 6.4-8.9 [facility] Comment on above: Performed By: #### L IPID, T4F, CMP, TSH3 wRFLX, URMACRERAT #### [address] Sodium [Moles/Vol] 137 mmol/L Normal 136-145 [facility] Comment on above: Performed By: #### L IPID, T4F, CMP, TSH3 wRFLX, URMACRERAT #### [address] Urea nitrogen [Mass/Vol] 18 mg/dL Normal 7-25 [facility] Comment on above: Performed By: #### L IPID, T4F, CMP, TSH3 wRFLX, URMACRERAT #### [facility] [address] Free T4 (Free Thyroxine)on 1 Free T4 [Mass/Vol] 1.36 ng/dL High 0.61-1.12 [facility] Comment on above: Performed By: #### T PO, THYGLOB AB #### [facility] , #### T3F, T4F #### [facility] [address] Lipid Panelon 08-04-2024 Cholesterol [Mass/Vol] 158 mg/dL Normal 140-200 [facility] Comment on above: Result Comment: Chol less than 200 mg/dl low risk Chol 201-239 mg/dl borderline risk Chol 240 mg/dl and greater high risk Performed By: #### L IPID, T4F, CMP, TSH3 wRFLX, URMACRERAT #### [facility] [address] Cholesterol in HDL [Mass/Vol] 57 mg/dL Normal 23-92 [facility] Comment on above: Result Comment: HDL CHOL ATP-III CLASSIFICATION Cardiovascular Risk HDL > or equal to 60 mg/dL LOW HDL < 40 mg/dL HIGH Performed By: #### L IPID, T4F, CMP, TSH3 wRFLX, URMACRERAT #### [facility] [address] [place] [id number] [facility] Cholesterol.total/Cho lesterol in HDL [Mass ratio] 2.8 {ratio} Normal <5.0 [facility] Comment on above: Performed By: #### L IPID, T4F, CMP, TSH3 wRFLX, URMACRERAT #### [facility] [address] [place] [id number] [facility] LDL Cholesterol,Calculate d 88 mg/dL Normal 0-100 [facility] Comment on above: Result Comment: LDL ATP III CLASSIFICATION LDL less than 100 mg/dL Optimal LDL 100-129 mg/dL Near or above optimal LDL 130-159 mg/dL Borderline high LDL 160-189 mg/dL High LDL greater than 189 mg/dL Very high Performed By: #### L IPID, T4F, CMP, TSH3 wRFLX, URMACRERAT #### [facility] [address] Triglyceride w/Reflex 64 mg/dL Normal 0-149 [facility] Comment on above: Result Comment: TRIG ATP III CLASSIFICATION TRIG less than 150 mg/dL Normal TRIG 150-199 mg/dL Borderline high TRIG 200-500 mg/dL High TRIG greater than 500 mg/dL Very high Standard traceable to the Center for Disease Conrtrol and Prevention (CDC) test method. Performed By: #### L IPID, T4F, CMP, TSH3 wRFLX, URMACRERAT #### [facility] [address] VLDL CHOLESTEROL 12 mg/dL Normal [facility] Comment on above: Performed By: #### L IPID, T4F, CMP, TSH3 wRFLX, URMACRERAT #### [place] [address] [place] MicroAlb Creat Ratio,Uon Albumin DL <= 20 mg/L (U) [Mass/Vol] mg/dL Normal 0.0-1.8 [facility] Comment on above: Performed By: #### L IPID, T4F, CMP, TSH3 wRFLX, URMACRERAT #### [facility] [address] Creatinine, Urine (Random) 126.00 mg/dL Normal [facility] Comment on above: Result Comment: No r eference range established Performed By: #### L IPID, T4F, CMP, TSH3 wRFLX, URMACRERAT #### [place] [address] [place] Microalbumin/Creatini ne Ratio Not performed Normal 0.0-30.0 [facility] Comment on above: Result Comment: PERF ORMED BY: [place] [address] PATHOLOGIST ENROLLMENT NURSE ELE BARRERA M.D. Performed By: #### L IPID, T4F, CMP, TSH3 wRFLX, URMACRERAT #### [facility] [address] [place] [address] Thyroid Stim Hormone w/Rflxo n 08-04-2024 Thyroid Stim Hormone w/Rflx 0.18 u[iU]/mL Low 0.45-5.33 [facility] Comment on above: Result Comment: PERF ORMED BY: [place] [address] PATHOLOGIST ENROLLMENT NURSE ELE BARRERA M.D. Performed By: #### L IPID, T4F, CMP, TSH3 wRFLX, URMACRERAT #### [facility] [address] [place] [address] Performed By: #### T PO, THYGLOB AB #### [facility] , #### T3F, T4F #### [address] MM screening mammo BI w/CADo n 02-27-2024 MM screening mammo BI w/CAD [facility] Main [place] [address] [place] [address] Mammography Report Signed Patient: Alana Nation MR#: [id number] : 1970 Acct:[id number] Age/Sex: 53 / F ADM Date: 02/25/24 Loc: [place] Room: Type: [facility] Attending Dr: Ailyn Willis DO Copies to: Ailyn Willis DO Ordering Provider: Ailyn Willis DO Date of Service: 02/25/24 MM/MM screening mammo BI w/CAD: Z12.31 - Encounter for screening mammogram for malignant ... CLINICAL DATA: Screening for malignancy. BILATERAL SCREENING MAMMOGRAMS - FULL FIELD DIGITAL WITH TOMOSYNTHESIS AND CAD Tomosynthesis craniocaudal and mediolateral oblique views of both breasts were obtained using low- dose digital technique. Comparison is made to prior studies from October 17, 2012 through June 27, 2020. This examination was reviewed with the aid of CAD. The breast parenchyma has been largely replaced by fat. Benign asymmetries are again noted. There are no developing masses, typically malignant calcifications or architectural distortion. There has been no significant interval change. MM/MM screening mammo BI w/CAD IMPRESSION: NO MAMMOGRAPHIC EVIDENCE OF MALIGNANCY. ROUTINE FOLLOW-UP IS RECOMMENDED IN ONE YEAR. RESULT CODE: 2 Benign Findings(s) DENSITY CODE: 1 (<25% glandular) FOLLOW UP: 1YR The false-negative rate of mammography is approximately 10-percent. Management of a palpable abnormality must be based on clinical grounds. Patient was entered into a reminder system with a target due date for the next mammogram. Impression dictated by: Yumiko Waddell M.D.02/27/2024 6:23 AM Dictation Location: [facility] Transcribed By: [facility] 02/27/24622 Dictated By: Yumiko Waddell MD 02/27/24618 Signed By: 02/27/24622 Normal [facility] HbA1c HPLC (Bld) [Mass fract ion]on 01-12-2024 HbA1c (Bld) [Mass fraction] 7.7 % [facility] No Panel Informationon 01-11 Bedside Glucose 168 [facility] A1C with Estimated Average G luon 10-06-2023 HbA1c (Bld) [Mass fraction] 7.900 % High 4.3-5.6 % [facility] [employer] Other HbA1c (Bld) [Mass fraction] 180 mg/dL [facility] [employer] Other Glucose [Mass/Vol] 180 mg/dL Normal [facility] Comment on above: Order Comment: Reaso n for Exam Type 2 diabetes mellitus with diabetic chronic kidney diseas Result Comment: PERF ORMED BY: [place] [address] PATHOLOGIST ENROLLMENT NURSE ELE BARRERA M.D. Performed By: #### A 1C [facility] #### [address] Glucose - FINGER STICKon Glucose [Mass/Vol] 206 mg/dL [facility] [employer] Other Glucose mean value [Mass/vol ume] in Blood Estimated from glycated hemoglobinOrdered By: Jake House on 10-06-2023 Average glucose Estimated from glycated hemoglobin (Bld) [Mass/Vol] 180 mg/dL [facility] Hemoglobin A1c percentageOrd ered By: Sidneyregine Hand on 10-06-2023 HbA1c (Bld) [Mass fraction] 7.9 % High 4.3-5.6 [facility] Comment on above: Increased risk for d iabetes: 5.7 - 6.4diabetes: >6.4glycemic control for adults with diabetes: <7.0 Order Comment: Reaso n for Exam Type 2 diabetes mellitus with diabetic chronic kidney diseas Result Comment: Incr eased risk for diabetes: 5.7 - 6.4 diabetes: >6.4 glycemic control for adults with diabetes: <7.0 Performed By: #### A 1C WT eA #### [facility] [address] [place] [address] [place] Alanine aminotransferase [En zymatic activity/volume] in Serum or PlasmaOrdered By: Jake House on 09-26-2023 ALT [Catalytic activity/Vol] 15 U/L Normal 7-52 [facility] Comment on above: Order Comment: Reaso n for Exam Type 2 diabetes mellitus with diabetic chronic kidney diseas Performed By: #### T PO, THYGLOB AB #### [facility] , #### T3F, T4F #### [facility] [address] [place] [address] [place] Albumin [Mass/volume] in Ser um or Plasma by Bromocresol green (BCG) dye binding methoOrdered By: Jake House on 09-26-2023 Albumin BCG dye [Mass/Vol] 4.0 g/dL 3.5-5.7 [facility] Alkaline phosphatase [Enzyma tic activity/volume] in Serum or PlasmaOrdered By: Jake House on 09-26-2023 ALP [Catalytic activity/Vol] 75 U/L Normal 34-104 [facility] Comment on above: Order Comment: Reaso n for Exam Type 2 diabetes mellitus with diabetic chronic kidney diseas Performed By: #### T PO, THYGLOB AB #### [facility] , #### T3F, T4F #### [place] [address] [place] Antithyroglobulin Abon 09-26 Antithyroglobulin Ab 2.5 High 0.0-0.9 [facility] Comment on above: Result Comment: Thyr oglobulin Antibody measured by [employer] Performed at: - [facility] [id number] [employer] Mechanic: Hector Finn PhD, Phone: [phone] PERFORMED BY: [place] [address] PATHOLOGIST ENROLLMENT NURSE ELE BARRERA M.D. Performed By: #### T PO, THYGLOB AB #### [facility] , #### T3F, T4F #### [address] Aspartate aminotransferase [ Enzymatic activity/volume] in Serum or PlasmaOrdered By: Tondra Mapus on 09-26-2023 AST [Catalytic activity/Vol] 15 U/L Normal 13-39 [facility] Comment on above: Order Comment: Reaso n for Exam Type 2 diabetes mellitus with diabetic chronic kidney diseas Performed By: #### T PO, THYGLOB AB #### [facility] , #### T3F, T4F #### [place] [address] [place] Bilirubin.total [Mass/volume ] in Serum or PlasmaOrdered By: Tondra Mapus on 09-26-2023 Bilirubin [Mass/Vol] 0.4 mg/dL Normal 0.3-1.0 [facility] Comment on above: Order Comment: Reaso n for Exam Type 2 diabetes mellitus with diabetic chronic kidney diseas Performed By: #### T PO, THYGLOB AB #### [facility] , #### T3F, T4F #### [place] [address] [place] Calcium [Mass/volume] in Ser um or PlasmaOrdered By: Tondra Mapus on 09-26-2023 Calcium [Mass/Vol] 9.2 mg/dL Normal 8.6-10.3 [facility] Comment on above: Order Comment: Reaso n for Exam Type 2 diabetes mellitus with diabetic chronic kidney diseas Performed By: #### T PO, THYGLOB AB #### [facility] , #### T3F, T4F #### [facility] [address] [place] [address] [place] Carbon dioxide, total [Moles /volume] in Serum or PlasmaOrdered By: Tondra Mapus on 09-26-2023 CO2 [Moles/Vol] 29.3 mmol/L Normal 21.0-31.0 [facility] Comment on above: Order Comment: Reaso n for Exam Type 2 diabetes mellitus with diabetic chronic kidney diseas Performed By: #### T PO, THYGLOB AB #### [facility] , #### T3F, T4F #### [facility] [address] [place] [address] [place] Chloride [Moles/volume] in S emmie or PlasmaOrdered By: Tondra Mapus on 09-26-2023 Chloride [Moles/Vol] 104 mmol/L Normal 98-107 [facility] Comment on above: Order Comment: Reaso n for Exam Type 2 diabetes mellitus with diabetic chronic kidney diseas Performed By: #### T PO, THYGLOB AB #### [facility] , #### T3F, T4F #### [facility] [address] [place] [address] [place] Cholesterol [Mass/volume] in Serum or PlasmaOrdered By: Tondra Mapus on 09-26-2023 Cholesterol [Mass/Vol] 180 mg/dL Normal 140-200 [facility] Comment on above: Chol less than 200 m g/dl low riskChol 201-239 mg/dl borderline riskChol 240 mg/dl and greater high risk Order Comment: Reaso n for Exam Type 2 diabetes mellitus with diabetic chronic kidney diseas Result Comment: Chol less than 200 mg/dl low risk Chol 201-239 mg/dl borderline risk Chol 240 mg/dl and greater high risk Performed By: #### T PO, THYGLOB AB #### [facility] , #### T3F, T4F #### [facility] [address] [place] [id number] [place] Cholesterol in LDL Calc [Mas s/Vol]Ordered By: Jake House on 09-26-2023 Cholesterol in LDL [Mass/Vol] 96 mg/dL 0-100 [facility] Comment on above: LDL ATP III CLASSIFI CATIONLDL less than 100 mg/dL OptimalLDL 100-129 mg/dL Near or above optimalLDL 130-159 mg/dL Borderline highLDL 160-189 mg/dL HighLDL greater than 189 mg/dL Very high Cholesterol in VLDL Calc [Ma ss/Vol]Ordered By: Jake House on 09-26-2023 Cholesterol in VLDL [Mass/Vol] 15 mg/dL [facility] Comprehensive Metabolic Pane pernell 09-26-2023 Albumin [Mass/Vol] 4.0 g/dL Normal 3.5-5.7 [facility] Comment on above: Order Comment: Reaso n for Exam Type 2 diabetes mellitus with diabetic chronic kidney diseas Performed By: #### T PO, THYGLOB AB #### [facility] , #### T3F, T4F #### [facility] [address] [place] [address] [place] GFR/1.73 sq M.predicted MDRD (S/P/Bld) [Vol rate/Area] mL/min/{1.73_m2} Normal [facility] Comment on above: Order Comment: Reaso n for Exam Type 2 diabetes mellitus with diabetic chronic kidney diseas Performed By: #### T PO, THYGLOB AB #### [facility] , #### T3F, T4F #### [facility] [address] [place] [id number] [place] Creatinine [Mass/volume] in Serum or PlasmaOrdered By: Jake House on 09-26-2023 Creatinine [Mass/Vol] 1.03 mg/dL Normal 0.60-1.20 [facility] Comment on above: Order Comment: Reaso n for Exam Type 2 diabetes mellitus with diabetic chronic kidney diseas Performed By: #### T PO, THYGLOB AB #### [facility] , #### T3F, T4F #### [facility] [address] Creatinine [Mass/volume] in UrineOrdered By: Tondra Mapus on 09-26-2023 Creatinine (U) [Mass/Vol] 154.0 mg/dL 11.0-20.0 [facility] Glucose [Mass/volume] in Ser um or PlasmaOrdered By: Tondra Mapus on 09-26-2023 Glucose [Mass/Vol] 214 mg/dL High 70-100 [facility] Comment on above: ADA recommended refe rence rangeRandom Glucose Reference Range is dependent on time and content of last meal. Glucose of more than 200 mg/dL in a nonstressed, ambulatory subject supports the diagnosis of Diabetes Mellitus. Order Comment: Reaso n for Exam Type 2 diabetes mellitus with diabetic chronic kidney diseas Result Comment: [place] om Glucose Reference Range is dependent on time and content of last meal. Glucose of more than 200 mg/dL in a nonstressed, ambulatory subject supports the diagnosis of Diabetes Mellitus. ADA recommended reference range Performed By: #### T PO, THYGLOB AB #### [facility] , #### T3F, T4F #### [facility] [address] [place] [address] Lipid Panelon 09-26-2023 LDL Cholesterol,Calculate d 96 mg/dL Normal 0-100 [facility] Comment on above: Order Comment: Reaso n for Exam Type 2 diabetes mellitus with diabetic chronic kidney diseas Result Comment: LDL ATP III CLASSIFICATION LDL less than 100 mg/dL Optimal LDL 100-129 mg/dL Near or above optimal LDL 130-159 mg/dL Borderline high LDL 160-189 mg/dL High LDL greater than 189 mg/dL Very high Performed By: #### T PO, THYGLOB AB #### [facility] , #### T3F, T4F #### [facility] [address] Triglyceride w/Reflex 75 mg/dL Normal 0-149 [facility] Comment on above: Order Comment: Reaso n for Exam Type 2 diabetes mellitus with diabetic chronic kidney diseas Result Comment: TRIG ATP III CLASSIFICATION TRIG less than 150 mg/dL Normal TRIG 150-199 mg/dL Borderline high TRIG 200-500 mg/dL High TRIG greater than 500 mg/dL Very high Standard traceable to the Center for Disease Conrtrol and Prevention (CDC) test method. Performed By: #### T PO, THYGLOB AB #### [facility] , #### T3F, T4F #### [facility] [address] VLDL CHOLESTEROL 15 mg/dL Normal [facility] Comment on above: Order Comment: Reaso n for Exam Type 2 diabetes mellitus with diabetic chronic kidney diseas Performed By: #### T PO, THYGLOB AB #### [facility] , #### T3F, T4F #### [facility] [address] MicroAlb Creat Ratio,Uon Creatinine, Urine (Random) 154.0 mg/dL High 11.0-20.0 [facility] Comment on above: Order Comment: Reaso n for Exam Type 2 diabetes mellitus with diabetic chronic kidney diseas Performed By: #### T PO, THYGLOB AB #### [facility] , #### T3F, T4F #### [facility] [address] Microalbumin/Creatini ne Ratio Not performed Normal 0.0-30.0 [facility] Comment on above: Order Comment: Reaso n for Exam Type 2 diabetes mellitus with diabetic chronic kidney diseas Result Comment: PERF ORMED BY: [place] [address] PATHOLOGIST ENROLLMENT NURSE ELE BARRERA M.D. Performed By: #### T PO, THYGLOB AB #### [facility] , #### T3F, T4F #### [facility] [address] [place] [address] [place] Microalbumin [Mass/volume] i n UrineOrdered By: Tondra Mapus on 09-26-2023 Albumin DL <= 20 mg/L (U) [Mass/Vol] mg/dL Normal 0.0-1.8 [facility] Comment on above: Order Comment: Reaso n for Exam Type 2 diabetes mellitus with diabetic chronic kidney diseas Performed By: #### T PO, THYGLOB AB #### [facility] , #### T3F, T4F #### [facility] [address] [place] [address] No Panel InformationOrdered By: Tondra Mapus on 09-26-2023 Estimated GFR (CKD-EPI) > 60.0 mL/Min [facility] Creatinine Clearance (Chem N/A [facility] Potassium [Moles/volume] in Serum or PlasmaOrdered By: Tondra Mapus on 09-26-2023 Potassium [Moles/Vol] 4.9 mmol/L Normal 3.5-5.1 [facility] Comment on above: Order Comment: Reaso n for Exam Type 2 diabetes mellitus with diabetic chronic kidney diseas Performed By: #### T PO, THYGLOB AB #### [facility] , #### T3F, T4F #### [facility] [address] [place] [address] [place] Protein [Mass/volume] in Ser um or PlasmaOrdered By: Tondra Mapus on 09-26-2023 Protein [Mass/Vol] 6.9 g/dL Normal 6.4-8.9 [facility] Comment on above: Order Comment: Reaso n for Exam Type 2 diabetes mellitus with diabetic chronic kidney diseas Performed By: #### T PO, THYGLOB AB #### [facility] , #### T3F, T4F #### [facility] [address] [place] [address] Serum globulin measurement b y calculation (mass/volume)Ordered By: Tondra Mapus on 09-26-2023 Globulin (S) [Mass/Vol] 2.9 g/dL [facility] Comment on above: Order Comment: Reaso n for Exam Type 2 diabetes mellitus with diabetic chronic kidney diseas Performed By: #### T PO, THYGLOB AB #### [facility] , #### T3F, T4F #### [facility] [address] [place] [address] Serum or plasma albumin/glob ulin mass ratioOrdered By: Kaina Peaceus on 09-26-2023 Albumin/Globulin [Mass ratio] 1.4 {ratio} [facility] Comment on above: Order Comment: Reaso n for Exam Type 2 diabetes mellitus with diabetic chronic kidney diseas Performed By: #### T PO, THYGLOB AB #### [facility] , #### T3F, T4F #### [facility] [address] [place] [address] Serum or plasma anion gap de terminationOrdered By: Jake Handus on 09-26-2023 Anion gap [Moles/Vol] 9.6 mmol/L Normal 6.0-15.0 [facility] Comment on above: Order Comment: Reaso n for Exam Type 2 diabetes mellitus with diabetic chronic kidney diseas Performed By: #### T PO, THYGLOB AB #### [facility] , #### T3F, T4F #### [facility] [address] [place] [address] Serum or plasma high density lipoprotein (HDL) cholesterol measurementOrdered By: Jake House on 09-26-2023 Cholesterol in HDL [Mass/Vol] 69 mg/dL Normal 23-92 [facility] Comment on above: HDL CHOL ATP-III CLA SSIFICATION Cardiovascular RiskHDL > or equal to 60 mg/dL LOWHDL < 40 mg/dL HIGH Order Comment: Reaso n for Exam Type 2 diabetes mellitus with diabetic chronic kidney diseas Result Comment: HDL CHOL ATP-III CLASSIFICATION Cardiovascular Risk HDL > or equal to 60 mg/dL LOW HDL < 40 mg/dL HIGH Performed By: #### T PO, THYGLOB AB #### [facility] , #### T3F, T4F #### [facility] [address] Serum or plasma thyroglobuli n antibody assay (units/volume)Ordered By: Char Nuñez on 09-26-2023 Thyroglobulin Ab Qn 2.5 [IU]/mL 0.0-0.9 [facility] Comment on above: Thyroglobulin Antibo dy measured by NokterMethodologyPerformed at: [facility] [address] [id number] Director: Hector Finn PhD, Phone: [phone] Serum or plasma thyroperoxid ase antibody assay (units/volume)Ordered By: Char Nuñez on 09-26-2023 TPO Ab Qn 99 [IU]/mL 0-34 [facility] Comment on above: Performed at: [facility] [employer] [place] [id number] Director: Hector Finn PhD, Phone: [phone] Serum or plasma total choles terol/high density lipoprotein (HDL) cholesterol mass ratOrdered By: Jake Houes on 09-26-2023 Cholesterol.total/Cho lesterol in HDL [Mass ratio] 2.6 {ratio} Normal <5.0 [facility] Comment on above: Order Comment: Reaso n for Exam Type 2 diabetes mellitus with diabetic chronic kidney diseas Result Comment: PERF ORMED BY: [place] [address] PATHOLOGIST ENROLLMENT NURSE ELE BARRERA M.D. Performed By: #### T PO, THYGLOB AB #### [facility] , #### T3F, T4F #### [facility] [address] [place] [address] Sodium [Moles/volume] in Ser um or PlasmaOrdered By: Jake House on 09-26-2023 Sodium [Moles/Vol] 138 mmol/L Normal 136-145 [facility] Comment on above: Order Comment: Reaso n for Exam Type 2 diabetes mellitus with diabetic chronic kidney diseas Performed By: #### T PO, THYGLOB AB #### [facility] , #### T3F, T4F #### [facility] [address] [place] [address] Thyroid Peroxidase Antibodie son 09-26-2023 Thyroid Peroxidase Antibodies 99 High 0-34 [facility] Comment on above: Result Comment: Perf ormed at: [facility] [id number] [employer] Mechanic: Hector Finn PhD, Phone: [phone] Performed By: #### T PO, THYGLOB AB #### [facility] , #### T3F, T4F #### [facility] [address] [place] [address] Thyroid Stim Hormone w/Rflxo n 09-26-2023 Thyroid Stim Hormone w/Rflx 0.47 u[iU]/mL Normal 0.45-5.33 [facility] Comment on above: Order Comment: Reaso n for Exam Type 2 diabetes mellitus with diabetic chronic kidney diseas Result Comment: PERF ORMED BY: [place] [address] PATHOLOGIST ENROLLMENT NURSE ELE BARRERA M.D. Performed By: #### T PO, THYGLOB AB #### [facility] , #### T3F, T4F #### [facility] [address] [place] [address] Thyrotropin [Units/volume] i n Serum or PlasmaOrdered By: Jake House on 09-26-2023 TSH Qn 0.47 m[IU]/L 0.45-5.33 [facility] Thyroxine (T4) free [Mass/vo lume] in Serum or PlasmaOrdered By: Char Nuñez on 09-26-2023 Free T4 [Mass/Vol] 1.43 ng/dL High 0.61-1.12 [facility] Comment on above: Result Comment: PERF ORMED BY: [place] [address] PATHOLOGIST ENROLLMENT NURSE ELE BARRERA M.D. Performed By: #### T PO, THYGLOB AB #### [facility] , #### T3F, T4F #### [facility] [facility] [address] [place] [address] Triglyceride [Mass/volume] i n Serum or PlasmaOrdered By: Jake House on 09-26-2023 Triglyceride [Mass/Vol] 75 mg/dL 0-149 [facility] Comment on above: TRIG ATP III CLASSIF ICATIONTRIG less than 150 mg/dL NormalTRIG 150-199 mg/dL Borderline highTRIG 200-500 mg/dL High TRIG greater than 500 mg/dL Very highStandard traceable to the Center for Disease Conrtrol and Prevention (CDC) test method. Triiodothyronine (T3) Freeon 09-26-2023 Triiodothyronine (T3) Free 3.41 pg/mL Normal 2.50-3.90 [facility] Comment on above: Result Comment: PERF ORMED BY: [place] [address] PATHOLOGIST ENROLLMENT NURSE ELE BARRERA M.D. Performed By: #### T PO, THYGLOB AB #### [facility] , #### T3F, T4F #### [address] Triiodothyronine (T3) Free [ Mass/volume] in Serum or PlasmaOrdered By: Char Nuñez on 09-26-2023 Free T3 [Mass/Vol] 3.41 pg/mL 2.50-3.90 [facility] Urea nitrogen [Mass/volume] in Serum or PlasmaOrdered By: Jake House on 09-26-2023 Urea nitrogen [Mass/Vol] 23 mg/dL Normal 7-25 [facility] Comment on above: Order Comment: Reaso n for Exam Type 2 diabetes mellitus with diabetic chronic kidney diseas Performed By: #### T PO, THYGLOB AB #### [facility] , #### T3F, T4F #### [facility] [address] Urine microalbumin/creatinin e mass ratioOrdered By: Jake House on 09-26-2023 Albumin/Creatinine DL <= 20 mg/L (U) [Mass ratio] [facility] Comment on above: Test not performed A1C HEMOGLOBINon 06-29-2023 HbA1c (Bld) [Mass fraction] 7.3 % [facility] Other Glucose - FINGER STICKon Glucose [Mass/Vol] 155 mg/dL [facility] Other HbA1c (Bld) [Mass fraction]o n 06-29-2023 A1C HEMOGLOBIN [employer] Other Coding Summaryon 06-16-2023 Coding Summary HTMLBase 64 XnwypachCJh4gSk+PGhlYWQ+PE 4XFYLsS83ejAVkyI6lW0WRNOmD HkhhHEWUBFgNCyWbvgKnOD1arE NjZXJu IC8+NN9vFHOaArsgjHQkf9E9eU W4L23del6aERqvaPU2VVUuIbVr zlzhk3wzlRv4TWebMqbuRrYm RZZfgG93PUZ0pA98Mh36eHJlxI Rgs1jnqXf1VsWgFKVrTUE2oEcb XZwvm1LkOLBmB42fnCEoi8G4 YEEeoRpxeFQjDpSjdMR5nH7hZD nborlsa3dtemuxNbn6zv90nYZs l1H3uUJ5L2KjvbW2AEPhuSVu MwgmiBEBtN0fsouog8lzwbadXt XoBFQeOCx5GSe9PPYbdOdvCzHz XK48IAR7FQLaqfOpI2KuHECk vFinNjF9a5Z4Te6FF7TBOwtmM5 VNTUFSWTwvdGQ+OH38bw58R5Dr KiyrJhf9IQXqXCU6hRW2jJ9q TVTpFTxso6P7jSM2N4QebaInoq 6iq2kaJEAkYVgcJ11waKIwp8C0 LVKhsUH4EFJdfIdbUhOakO17 Oyc+RYMckRruk3MgRgpmd9yag9 tppSf6ElopLSCfuvVwyUfvRZN4 e2JgQq6dVGCpoFS9mPS1dK3n MtRuBxW7ISvoZ919GoOmoDEqXw oiM01yC1KzaRS+PZPaSos2LCAo cEisMA1zF7QyUZOotriryIRx eHefYE1zVZLfbyjdQOCdnO3lCD NvG3w3MuElLkT1LOltH4LiWHVx aoucFm36nG3mAqFoHoY4QScz A5CqvzT8TSWnuERgJMmyPVP8D5 1in2X9MGCyYDNkEZB6qLN8wR8c bGlnbjogbGVmdDsgdmVydGlj TYrhLZvuY721ZLKexCdxHhFyFN luZyBEYXRlOiAgMDgvMTcvMjAy MzwvdGQ+IUIrLUJ3hKulFZNs aSDmKSopYy6ncLfpoDoxTO9mVI JpvtgeSPNnxL6gIEMvgDRtrVlj FG1mZQGvnuuso019KwOvLBF7 QDAbpUOjK6OoaV2nBtMpDPYvZB LpN2BinUTiCCdqD774JNdhIiD8 SCIkleFiK1KkTNIxsFwwAyI0 n5X4Tk7Ht1ItbttqR1CsaNUbBr RmTcfkKKm1W1HfIpwmiIJ+PC90 YXBtRW64FLn1JKS0fPuqYMkl TKQuZ9UvoS8yFdVkUYYmXDKgMb c+PHRhYmxlIHdpZHRoPScxMDAl ZgKhmUlvER2mXj6iJXSdEMHz yIdldHGvTwUza4esGULjIFgzNU 5ytZisJ9OjtBW1HFWme4i6Hk32 E09fP7FzhCM+BCCnvEL4qTU7 yC8sEuIiFuY3UQzeM403ItJeeD ImBomwt2rne2krwKj5SwH2RIEz fvTqmVpeJOZ1y4ZaMj74V24d IHdpZHRoPSIxNSUiIHZhbGlnbj 7vvJ7mJp2+VAYreFK8aZS1lF7a BnFxLmY8BGabI518IuNieWSm Vdklz2vyj3nilUb5UnEcXYGolq TiaMsqSXL9h0LiJj54J0OhjFbx u8NaZup6fs74qWTut7F1zIV1 T6SeWXAeidzlkCCoeKlqRZ8wAG MbnhmmEZLqxM1mUPQjN2r9BsJr ShI0UTwnO7KlmyH3QAOzpJEm DMTqvNRCtN9vvzivr0abvcwhWn HeFPOsGMu9CMa8VUTqoAmkEmIq XEL6CmF1LZC0iGTweA2yjJcy rmuxfI1jShp+JYD4xFFniURSNA 1lOjwvdGQ+WMKdKNU9uUpnSZln VDGecB6lRUFkR5j1GeVfMsX0 UDoeR1ZkanE5FQCxaIUySAEqvO QVcR1xzmhbd3jiencqCaFnOJMs ZNr5ASn3ZFZjaZhoGkKkXCT9 SkS6YKU6pBActA1keWwzptvlvJ 9wOyc+UdtsdHcbOQS0HKu7F3Qw Hsl1HRZxxQryAJ9moJZfEVrq Ly1xfFhsmZgkSA7cCQTawymci9 96MkGta0xaSTXmiWEjPLahKCW7 I86nu1Q7VNGgHIAkSBC0vRO0 fY3fvWshdvhsdNIbnKdyrjIqeK ytJCdsFGvlB316EMZotLgqEhFx HUl2C0LwFqu1TWOdyGplXI1x yHMrDKklXc8tvPoaeZedUA1kMO Qkgdwnh039HtTlb1wcVDPcfEJp EDppBTN8W91vl8W0UXQbIJZq KTA6yKS7iT6kmUprpyojkJZyoJ ouhtHydLsbFOyqCBaaS484QDEt fHolXvPgkYc5J7JnHqd2QSTw oQtkQQ3thXByLGcjOp5jhAqevW phCO1iKFUtjlwvg620VcKzi8pn DSTslETfACsaIXD0F59gi7Y0 VIBmERDcVXA8nRA4uD2irArblc ogbGVmdDsgdmVydGljYWwtYWxp G535OFDfmTqkEsIguIhlnjLq TWpyPXm9N0VfJggkmUN+PC90YW AqHC13iEFobFCbp5netYy0CvSn XOHsXDN0tEfpFRhby6PmVAUf S31djRGsb6E7QPPfuLkxoYXuUb KvmMR0jC3tRTuimvdvj2vxquhl Vvlhv1buym32bW01F49sWRsn BTIuXFMoTCJsNLGrmPleui6npZ 9wIi8+AVMhbFC7sIR3sM2hTFJc CyS8AKvoJ550IwNcvAIcGuvt l6wry3hvvMl1OmN7EMNzgkMazR kmETM4m7OhVh04R45nRBwcDWJn XUAjFCCbCFPvrQzaew8jsV0o Ii8+BQPqmRL7sZS5mZ3oPfVzVd H3PIjrH979CzZrlFKlJxkrH67c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 12-15-2022 08:45-0500 Diastolic blood pressure 76 mm[Hg] Tondra Mapus Other [facility] Other 12-15-2022 08:45-0500 Respiratory rate 18 /min Tondra Mapus Other [facility] Other 12-15-2022 08:45-0500 SaO2% (BldA) [Mass fraction] 99 % Tondra Mapus Other [facility] Other 12-15-2022 08:45-0500 Systolic blood pressure 119 mm[Hg] Tondra Mapus Other [facility] Other 07-07-2022 18:00-0400 Body height 173.99 cm Marlin Marzena Other [facility] Other 07-07-2022 18:00-0400 Body mass index (BMI) [Ratio] 31.31 kg/m2 Marlin Marzena Other [facility] Other 07-07-2022 18:00-0400 Body temperature 97 [degF] Marlin Marzena Other [facility] Other 07-07-2022 18:00-0400 Body weight 94.8 kg Marlin Ivan Other [facility] Other 07-07-2022 18:00-0400 Diastolic blood pressure 73 mm[Hg] Marlin Ivan Other [facility] Other 07-07-2022 18:00-0400 Respiratory rate 16 /min Marlin Ivan Other [facility] Other 07-07-2022 18:00-0400 SaO2% (BldA) [Mass fraction] 96 % Marlin Ivan Other [facility] Other 07-07-2022 18:00-0400 Systolic blood pressure 142 mm[Hg] Marlin Ivan Other [facility] Other 05-24-2022 09:45-0400 Body height 173.99 cm Tondra Mapus Other [facility] Other 05-24-2022 09:45-0400 Body mass index (BMI) [Ratio] 32.93 kg/m2 Tondra Mapus Other [facility] Other 05-24-2022 09:45-0400 Body weight 99.7 kg Tondra Mapus Other [facility] Other 05-24-2022 09:45-0400 Diastolic blood pressure 76 mm[Hg] Tondra Mapus Other [facility] Other 05-24-2022 09:45-0400 Respiratory rate 18 /min Tondra Mapus Other [facility] Other 05-24-2022 09:45-0400 SaO2% (BldA) [Mass fraction] 99 % Tondra Mapus Other [facility] Other 05-24-2022 09:45-0400 Systolic blood pressure 116 mm[Hg] Tondra Mapus Other [facility] Other 02-01-2022 11:15-0400 Body height 173.99 cm Tondra Mapus Other [facility] Other 02-01-2022 11:15-0400 Body mass index (BMI) [Ratio] 32.21 kg/m2 Tondra Mapus Other [facility] Other 02-01-2022 11:15-0400 Body weight 97.52 kg Tondra Mapus Other [facility] Other 02-01-2022 11:15-0400 Diastolic blood pressure 73 mm[Hg] Tondra Mapus Other [facility] Other 02-01-2022 11:15-0400 Respiratory rate 16 /min Tondra Mapus Other [facility] Other 02-01-2022 11:15-0400 SaO2% (BldA) [Mass fraction] 95 % Tondra Mapus Other [facility] Other 02-01-2022 11:15-0400 Systolic blood pressure 127 mm[Hg] Tondra Mapus Other [facility] Other 10-14-2021 16:45-0500 Body height 173.99 cm Tondra Mapus Other [facility] Other 10-14-2021 16:45-0500 Body mass index (BMI) [Ratio] 32.51 kg/m2 Tondra Mapus Other [facility] Other 10-14-2021 16:45-0500 Body weight 98.43 kg Tondra Mapus Other [facility] Other 10-14-2021 16:45-0500 Diastolic blood pressure 65 mm[Hg] Tondra Mapus Other [facility] Other 10-14-2021 16:45-0500 Respiratory rate 16 /min Tondra Mapus Other [facility] Other 10-14-2021 16:45-0500 SaO2% (BldA) [Mass fraction] 99 % Tondra Mapus Other [facility] Other 10-14-2021 16:45-0500 Systolic blood pressure 137 mm[Hg] Tondra Mapus Other [facility] Other Encounters Encounter Date Encounter Type Care Provider Facility Start: 08-04-2024 End: 08-04-2024 ambulatory Tondra K Mapus Facility:[facility] Start: 05-01-2024 End: 05-01-2024 ambulatory DO Ailyn Willis Work Phone: [facility] Work Phone: Start: 05-01-2024 End: 05-01-2024 Patient encounter procedure DO Ailyn Willis Work Phone: [facility] Work Phone: Start: 02-25-2024 End: 02-25-2024 Patient encounter procedure DO Ailyn Willis Work Phone: [facility] Work Phone: Start: 02-25-2024 End: 02-25-2024 ambulatory Ailyn Willis Facility:[facility] Start: 01-12-2024 End: 01-12-2024 ambulatory [facility] Work Phone: Start: 01-12-2024 End: 01-12-2024 Patient encounter procedure [facility] Work Phone: Start: 01-02-2024 Physical examination [facility] Start: 01-02-2024 End: 01-02-2024 Encounter for general adult medical examination without abnormal findings [facility] Start: 01-02-2024 End: 01-02-2024 Patient encounter procedure [facility] [place] Work Phone: Start: 10-06-2023 (DM) Diabetes Tondra Mapus [facility] Start: 10-06-2023 Telephone encounter Tondra Mapus [facility] Start: 10-06-2023 End: 10-06-2023 Discharged Recurring DO Ailyn Willis Work Phone: [facility] Work Phone: Start: 10-06-2023 End: 10-06-2023 ambulatory DO Ailyn Willis Work Phone: [facility] Other Start: 10-06-2023 End: 10-06-2023 Patient encounter procedure DO Ailyn Willis Work Phone: [facility] Work Phone: Start: 10-04-2023 End: 10-04-2023 ambulatory Navya Fitt Other [facility] Other Start: 10-04-2023 Encounter by blaine Mendosa Fitkurt [facility] Start: 09-26-2023 Telephone encounter Tondra Mapus [facility] Start: 09-26-2023 End: 09-26-2023 ambulatory Calid Savannah [facility] [employer] Other Start: 09-26-2023 End: 09-26-2023 Patient encounter procedure DO Ailyn Willis Work Phone: [facility] [place] Work Phone: Start: 07-12-2023 End: 07-12-2023 ambulatory Tondra Mapus Other [facility] Other Start: 07-12-2023 Telephone encounter Tondra Mapus [facility] Start: 06-29-2023 (DM) Diabetes Tondra Mapus [facility] Start: 06-29-2023 End: 06-29-2023 ambulatory Tondra Mapus Other [facility] Other Start: 06-13-2023 End: 06-13-2023 ambulatory Hernesto Sanchezston Facility:[facility] Start: 05-01-2023 End: 05-01-2023 ambulatory Paty Guaman Other [facility] Other Start: 05-01-2023 Office outpatient visit 15 minutes Paty Guaman [facility] Start: 03-14-2023 End: 03-14-2023 ambulatory DO Ailyn Willis Work Phone: [facility] Work Phone: Start: 03-14-2023 End: 03-14-2023 Patient encounter procedure DO Ailyn Willis Work Phone: [facility] [place] Work Phone: Start: 02-14-2023 Telephone encounter Tondra Mapus [facility] Start: 02-14-2023 End: 02-14-2023 ambulatory DO Ailyn Willis Work Phone: [facility] Work Phone: Start: 02-14-2023 End: 02-14-2023 Patient encounter procedure DO Ailyn Willis Work Phone: [facility] [place] Work Phone: Start: 01-20-2023 End: 01-20-2023 ambulatory Tondra Mapus Other [facility] Other Start: 01-20-2023 Telephone encounter Tondra Mapus [facility] Start: 12-15-2022 (PUMP/CGM) Pump / Sensor Tondra Mapus [facility] Start: 12-15-2022 End: 12-15-2022 ambulatory Tondra Mapus Other [facility] Other Start: 12-15-2022 Registered Recurring DO Ailyn Willis Work Phone: [facility] Work Phone: Start: 12-13-2022 End: 12-13-2022 ambulatory DO Ailyn Willis Work Phone: [facility] Work Phone: Start: 12-13-2022 End: 12-13-2022 Patient encounter procedure DO Ailyn Willis Work Phone: [facility] [place] Work Phone: Start: 08-31-2022 End: 08-31-2022 ambulatory Tondra Mapus Other [facility] Other Start: 08-31-2022 Telephone encounter Tondra Mapus [facility] Start: 07-12-2022 End: 07-12-2022 ambulatory Tondra Mapus Other [facility] Other Start: 07-12-2022 Telephone encounter Tondra Mapus [facility] Start: 07-07-2022 End: 07-07-2022 ambulatory Tondra Mapus Other [facility] Other Start: 07-07-2022 Office outpatient visit 15 minutes Marlin Ivan [facility] Start: 07-07-2022 Telephone encounter Tondra Mapus [facility] Start: 07-06-2022 End: 07-06-2022 ambulatory Tondra Mapus Other [facility] Other Start: 07-06-2022 Telephone encounter Tondra Mapus [facility] Start: 07-01-2022 End: 07-01-2022 ambulatory Ailyn Willis Other [facility] Other Start: 07-01-2022 Telephone encounter Ailyn Willis [facility] [place] Start: 06-29-2022 End: 06-29-2022 ambulatory Tondra Mapus Other [facility] Other Start: 06-29-2022 Telephone encounter Tondra Mapus [facility] Start: 05-24-2022 (PUMP/CGM) Pump / Sensor Tondra Mapus [facility] Start: 05-24-2022 End: 05-24-2022 ambulatory Tondra Mapus Other [facility] Other Start: 04-05-2022 End: 04-05-2022 ambulatory Tondra Mapus Other [facility] Other Start: 04-05-2022 Telephone encounter Tondra Mapus [facility] Start: 02-01-2022 (PUMP/CGM) Pump / Sensor Tondra Mapus [facility] Start: 02-01-2022 End: 02-01-2022 ambulatory Tondra Mapus Other [facility] Other Start: 01-15-2022 End: 01-15-2022 ambulatory Ailyn Willis Other [facility] Other Start: 01-15-2022 Telephone encounter Ailyn Richardson [facility] Start: 12-28-2021 End: 12-28-2021 ambulatory Jake House Other [facility] Other Start: 12-28-2021 Telephone encounter Jake House [facility] Start: 12-24-2021 End: 12-25-2021 ambulatory [facility] S [facility] Start: 12-24-2021 End: 12-24-2021 Subsequent hospital visit by physician Jocy Damon PT Work Phone: [facility] Comment on above: Arrived Start: 12-23-2021 End: 12-24-2021 ambulatory MAR[facility] S [facility]AD[facility] Start: 12-17-2021 End: 12-18-2021 ambulatory MAR[facility]AD[facility] Start: 12-15-2021 End: 12-16-2021 ambulatory [facility] Start: 12-14-2021 End: 12-14-2021 ambulatory Ailyn Willis Other [facility] Other Start: 12-14-2021 Telephone encounter Ailyn Richardson [facility] Start: 12-09-2021 End: 12-10-2021 ambulatory MAR[facility] S [facility]AD[facility] Start: 12-09-2021 End: 12-09-2021 Subsequent hospital visit by physician Aidee Middleton [facility] Comment on above: Arrived Start: 12-07-2021 End: 12-08-2021 ambulatory MAR[facility] S ARIADNA [facility] Start: 2021 End: 12-03-2021 ambulatory [facility] Start: 2021 End: 2021 Subsequent hospital visit by physician Jocy Damon PT Work Phone: [facility] Comment on above: Arrived Start: 10-28-2021 End: 10-31-2021 ambulatory KIANA MCKINNON [facility] Start: 10-14-2021 (PUMP/CGM) Pump / Sensor Tondra Mapus [facility] Start: 10-14-2021 End: 10-14-2021 ambulatory Tondra Mapus Other [employer] Other Start: 01-02-2020 Registered Recurring Ailyn Willis - [facility] Start: 12-25-2018 End: 12-25-2018 Emergency department patient visit Ailyn Willis -Emergency Room Procedures Date Procedure Procedure Detail Performing Clinician Start: 02-25-2024 Screening mammograph y of bilateral breasts DO Ailyn Willis Work Phone: Start: 03-14-2023 US scan of thyroid DO Kurt Willis Work Phone: Plan of Treatment Date Care Activity Detail Author Start: 05-15-2024 DTaP/Tdap/Td vaccine (2 - Td or Tdap) DTaP/Tdap/Td vaccine (2 - Td or Tdap) [facility] Start: 12-17-2021 End: 12-17-2021 Patient encounter procedure 12/17/2021 Appointment Physical Therapy Jocy Damon, VEENA [address] [place] [address] [facility] Start: 12-15-2021 End: 12-15-2021 Patient encounter procedure 12/15/2021 Appointment Physical Therapy Jocy Damon, VEENA [address] [place] [address] [facility] Start: 12-09-2021 End: 12-09-2021 Patient encounter procedure 12/09/2021 Appointment Physical Therapy Aidee Middleton [facility] Start: 12-07-2021 End: 12-07-2021 Patient encounter procedure 12/07/2021 Appointment Physical Therapy Jocy Damon, PT [address] [place] [address] [facility] Start: 2018 Screening for malignant neoplasm of breast Breast cancer screen [facility] [employer] [facility] Start: 2018 Shingles Vaccine (1 of 2) Shingles Vaccine (1 of 2) [facility] Start: 2013 Screening for malignant neoplasm of colon [facility] Start: 2008 Lipid panel Lipid screen [facility] Start: 1998 Screening for malignant neoplasm of cervix [facility] Start: 1989 Screening for malignant neoplasm of cervix Pap smear [facility] Start: 1983 HIV screening HIV screen [facility] Start: 1980 Depression Screen Depression Screen [facility] Start: 1968 Hepatitis C screening Hepatitis C screen [facility] [employer] [facility] MG Breast - bilatera l Screening [facility] Thyroperoxidase Ab [Units/volume] in Serum or Plasma [facility] Thyrotropin receptor Ab [Units/volume] in Serum [facility] Immunizations Immunization Date Immunization Notes Care Provider Fa ravindraty 08-25-2021 influenza, seasonal, injectable Tondra Mapus Other [facility] 11-07-2020 COVID-19 Vaccine Pfi zer - Documentation Purposes Only Tondra Mapus Other [facility] Payers Date Payer Category Payer Unknown [id number] 2021 Unknown [id number] 2018 Self-pay [id number] 2015 Unknown [id number] 2. [id number] 2015 Private Health Insurance [id number] 1968 Unknown [id number] 2.16.8 [id number] 1968 Unknown [id number] 2.16.8 [id number] 1968 Unknown [id number] 2.16.8 [id number] 1968 Unknown [id number] 2.16.8 [id number] 1968 Unknown [id number] 2.16.8 [id number] 1968 Unknown [id number] 2.16.8 [id number] 1968 Unknown [id number] 2.16.8 [id number] Unknown [id number] Unknown [id number] Unknown [id number] 2.16.8 [id number] Unknown [id number] 2.16.8 [id number] Unknown [id number] 2.16.8 [id number] Unknown [id number] 2.16.8 [id number] Unknown [id number] 2.16.8 [id number] Social History Date Type Detail Facility Tobacco smoking status PAIS Unknown if ever smoked [facility] Start: 1970 Sex Assigned At Female F [facility] Start: 12-25-2018 End: 01-12-2024 Tobacco smoking status PAIS Ex-smoker (finding) [facility] Tobacco smoking status NHIS Tobacco smoking consumption unknown [facility] [employer] Work Phone: Start: 1970 Sex Assigned At Not on file M carisa [employer] Work Phone: Sex Assigned At Sex Assigned At Bir th [facility] [employer] Other Medical Equipment Procedure Code Equipment Code Equipment Origin al Text Equipment Identifier Dates One Touch Lancet s 100 Pack Start: 11-29-2017 Goals Date Patient Goal Desired Activity /State Clinical Notes 10-14-2021 to 10-06-2023 Note Date & Type Note Facility 10-06-2023 Evaluation note Encounter Date Diagnosis Assessment Notes Sep, Dietary counseling and surveillance (ICD-10 - Z71.3) Eat well, exercise well, be well: dietary and fitness guidelines material was published Sep, Type 2 diabetes mellitus with diabetic chronic kidney disease (ICD-10 - E11.22) Managing type 2 diabetes material was published 1. Uncontrolled, a Type 2 diabetes with A1c of 7.9% 2. Blood glucose levels according to Warby Parkeripod 5/dexcom g6 cgm download 09/23/2023-10/06: Avg glucose 174. >250-7%, >180-33%, 70-180-60%, <70-0%, <54-0%, GMI 7.5%. Reviewed download with pt, infrequent incidence of hypoglcyemia. Glucose often above target postprandial supper. Added icr 5 pm 1:7.5. Modified correction threshold changed MN/8pm from 130 to 120, 4am 120 to 110. Pt interest in glp1, had used in past with nausea. Discussed with pt gip/glp1 option, reviewed common s/e. No hx pancreatitis/me n/mtc. Pt agreeable to sample mounjaro 2.5mg once weekly sample. Pt instrcuted to contact office when finish with sample and will send order for mounjaro 5mg once weekly. Pt given sample tresiba for back up if insulin if off pump, reviewed dosing tresiba 31 units once daily; must wait 24 hours before restarting insulin pump. Pt was also given handouts for skin solutions- see attached. 3. Patient is alert, oriented and receptive to making changes or counseling. Notes: Seen for an assessment of current glucose pattern, changes in treatment plan, counseling and coordination of care related to diabetes, risks, and benefits of treatment, medications, and side effects. TOPICS REVIEWED: 1. Time was spent reviewing: a. Basic concepts of diabetes, progressive beta cell , concepts of basal/bolus/cor rective insulin requirements. Basal: The goal is fasting blood glucose of 90-130mg. IF fasting blood glucose starts to run under 100mg 3x's/ week, decrease dose by 10%. Bolus: The goal is to hold the blood glucose level steady meal to meal. If pt. is going to have increased physical activity after a meal, decrease the schedule meal dose prior to the activity by 30-50%. If pt. skips a meal do not take this dose. Correction: The goal is to correct an elevated glucose back into the 100-150mg range b. Nutrition: Concepts of healthy diet, encouraged to decrease saturated fat in diet and increase non-starchy vegetables and fruits in diet. BMI: Pt. needs to select one small change to decrease caloric intake or increase physical activity to help decrease weight. c. Correct treatment of hypoglycemia, carry a glucose source at all times on your person, in vehicles, and at bedside. Can use glucose tablets/4, four ounces of pop or juice equal to 15 G of carbohydrate. Blood glucose should be 100 mg/dl or higher when driving. d. ADA glucose goals for age and medical complexity reviewed e. Patient questions addressed 2. Activity/exerci se: Encouraged to start any form of physical activity. Start low level and increase slowly to a minimal goal of 150 minutes/week. Limit activity to what is allowed by other issues such as cardiac, pulmonary or orthopedic restrictions. 3. Standards of care: Reminded to have an annual dilated eye exam, A1C every 3 months, urine testing for microalbumin once/year, check feet daily and report any cuts or sores that do not appear to be healing. 4. Meter: Plan to check blood glucose: Please check blood glucose levels 4 times/day. Back to back meals reveal effectiveness of bolus dosing. 5. [facility] Contact office if any issues or concerns with patterns of hypoglycemia, hyperglycemia, or diabetes medication issues. 6. Prescriptions: mounjaro 2.5mg x4 pens tresiba u100 x1 pen samples given today. 7. Prescriptions will not be filled unless you are compliant with follow up appointments or have a follow up appointment scheduled as ordered by your provider. Refills should be requested at the time of your visit. Sep, Hyperlipidemia (ICD-10 - E78.5) Managing your cholesterol material was published 09/22 LDL 96 at goal, on statin Sep, HTN (hypertension) (ICD-10 - I10) Managing high blood pressure material was published on arb Sep, [facility]CI (current) use of insulin (ICD-10 - Z79.4) Sep, Hypothyroid (ICD-10 - E03.9) Hypothyroidism material was published Keep f/u with Dr. Nuñez Sep, Vitamin B 12 deficiency (ICD-10 - E53.8) Good food sources of vitamin B12 material was published 08/2022 Vit. B 12 479 at target Sep, Insulin pump titration (ICD-10 - Z46.81) Using an insulin pump material was published Omnipod 5 dexcom g6 cgm Basal MN 1.3 units/hr (TBI 31.2 units/day) ICR MN 1:8 added 5pm 1:7.5 ISF MN 1:30 Active insulin time 4 hours MN 110/130 changed 110/120, 4am 110/120 changed to 110/110, 8pm 110/130 changed 110/120 Sep, Hypoglycemia (ICD-10 - E16.2) Low blood glucose and diabetes material was published Sep, BMI 32.0-32.9,adult (ICD-10 - Z68.32) 1 pound weight loss from last visit, continue with weight loss efforts [facility] Other 08-30-2023 Evaluation note* Encounter Date Diagnosis Assessment Notes Treatment Notes Treatment Clinical Notes May, Dietary counseling and surveillance (ICD-10 - Z71.3) Eat well, exercise well, be well: dietary and fitness guidelines material was published May, Type 2 diabetes mellitus with diabetic chronic kidney disease (ICD-10 - E11.22) Managing type 2 diabetes material was published 1. Uncontrolled, a Type 2 diabetes with A1c of 7.3% 2. Blood glucose levels according to omnipod 5/dexcom g6 cgm download 06/16/2023- 3: Avg glucose 171. >250-4%, >180-33%, 70-180-63%, <70-0%, <54-0%. Reviewed download with pt, infrequent incidence of hypoglcyemia. TBI decreased. Pt asking for correction threshold changed from 140 to 130. Changes to basal/correction threshold changed- see below. 3. Patient is alert, oriented and receptive to making changes or counseling. Notes: Seen for an assessment of current glucose pattern, changes in treatment plan, counseling and coordination of care related to diabetes, risks, and benefits of treatment, medications, and side effects. TOPICS REVIEWED: 1. Time was spent reviewing: a. Basic concepts of diabetes, progressive beta cell , concepts of basal/bolus/correc tive insulin requirements. Basal: The goal is fasting blood glucose of 90-130mg. IF fasting blood glucose starts to run under 100mg 3x's/ week, decrease dose by 10%. Bolus: The goal is to hold the blood glucose level steady meal to meal. If pt. is going to have increased physical activity after a meal, decrease the schedule meal dose prior to the activity by 30-50%. If pt. skips a meal do not take this dose. Correction: The goal is to correct an elevated glucose back into the 100-150mg range b. Nutrition: Concepts of healthy diet, encouraged to decrease saturated fat in diet and increase non-starchy vegetables and fruits in diet. BMI: Pt. needs to select one small change to decrease caloric intake or increase physical activity to help decrease weight. c. Correct treatment of hypoglycemia, carry a glucose source at all times on your person, in vehicles, and at bedside. Can use glucose tablets/4, four ounces of pop or juice equal to 15 G of carbohydrate. Blood glucose should be 100 mg/dl or higher when driving. d. ADA glucose goals for age and medical complexity reviewed e. Patient questions addressed 2. Activity/exercise: Encouraged to start any form of physical activity. Start low level and increase slowly to a minimal goal of 150 minutes/week. Limit activity to what is allowed by other issues such as cardiac, pulmonary or orthopedic restrictions. 3. Standards of care: Reminded to have an annual dilated eye exam, A1C every 3 months, urine testing for microalbumin once/year, check feet daily and report any cuts or sores that do not appear to be healing. 4. Meter: Plan to check blood glucose: Please check blood glucose levels 4 times/day. Back to back meals reveal effectiveness of bolus dosing. 5. [facility]. Contact office if any issues or concerns with patterns of hypoglycemia, hyperglycemia, or diabetes medication issues. 6. Prescriptions: None at this time. 7. Prescriptions will not be filled unless you are compliant with follow up appointments or have a follow up appointment scheduled as ordered by your provider. Refills should be requested at the time of your visit. May, Hyperlipidemia (ICD-10 - E78.5) Managing your cholesterol material was published 09/21 LDL 77 at goal, on statin May, HTN (hypertension) (ICD-10 - I10) Managing high blood pressure material was published on arb May, [facility]CI (current) use of insulin (ICD-10 - Z79.4) May, Hypothyroid (ICD-10 - E03.9) Hypothyroidism material was published Keep f/u with Dr. Nuñez May, Vitamin B 12 deficiency (ICD-10 - E53.8) Good food sources of vitamin B12 material was published 08/2022 Vit. B 12 479 at target May, Insulin pump titration (ICD-10 - Z46.81) Using an insulin pump material was published Omnipod 5 dexcom g6 cgm Basal MN 1.55 changed to 1.3 units/hr (TBI 31.2 units/day) ICR MN 1:8 ISF MN 1:30 Active insulin time 4 hours MN 110/140 changed 110/130, 4am 110/120, 8pm 110/140 changed 110/130 May, Hypoglycemia (ICD-10 - E16.2) Low blood glucose and diabetes material was published May, BMI 32.0-32.9,adult (ICD-10 - Z68.32) 5 pound weight loss from last visit, continue with weight loss efforts [facility] Other [id number] Note [id number]#1.00[facility]08-15-2023 [id number]#1.00[facility] 06-13-2023 NoteProcedure: Release of trigger finger left ring Pre Op Diagnosis: Trigger finger left ring Post Op Diagnosis: Same Surgeon: Dr. Atul Mckenzie DO Anesthesia: Local Indication for Surgery: Painful triggering with failure of conservative treatment Findings: Stenotic A1 frieda with triggering Blood Loss: Scant Specimen: None Procedure Summary: The patient was positioned supine. The upper extremity was sterilely prepped anddraped in usual fashion and a timeout was taken in the operating room. The hand was exsanguinated and a tourniquet was inflated to 250 mmHg. I infiltrated 1% lidocaine with epinephrine. After administration of anesthesia transverse incision was made over the A1 frieda. Blunt dissection was carried down towards A1 frieda. The neurovascular structures were protected with Ragnell retractors. An incision was made over the A1 frieda with a 15 blade. The release was completed proximallyand distally with a pair of tenotomy scissors. I then took the finger through range of motion and ensured that there was no residual triggering. The tendons were gliding freely. The wound was then irrigated and the skin was closed with nylon suture. Sterile dressings were applied along with an Marcin bandage. Complications: None [Electronically Signed on: 06/13/2023 14:15 EDT] Hernesto Mckenzie DO [Verified on: 06/13/2023 14:15 EDT] Hernesto Mckenzie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 RLE General AROM: Tenderness with full right hip ER and IR end range along with Hs 90 stretch AROM LLE (degrees) LLE AROM : WNL Assessment Assessment: Patient presents with lumbar/right hip pain suggestive of muscular strain/sprain resulting from a work related incident. She exhibits a mild leg length disrepancy which indicates a possible SI dysfunction. She would benefit from PT to educate and progress with stretching and strengthening ex Prognosis: Good Decision Making: Medium Complexity Exam: Oswestry = Clinical Presentation: Evolving The Following Comorbities will impact the patient s progression and Plan of Care: Previous Orthopedic Injury/Surgery Activity Tolerance: Patient Tolerated treatment well Education: PT POC; Issued written home program for figure 4 and piriformis stretch; HS 90 stretch Goals Short term goals Time Frame for Short term goals: 6 visits Short term goal 1: Educate on home program of trunk/hip stretching and postural strengthening termite helper goals Time Frame for termite helper goals : 12 visits termite helper goal 1: Decrease subjective lumbar/right hip pain to < 3/10 with work activities of standing/walking termite helper goal 2: Trunk and right hip mobility without discomfort termite helper goal 3: Complete lifting from knee to waist up to 30# Patient's Goal: Get rid of pain and return to activity Timed Code Treatment Minutes: 0 Minutes Total Treatment Time: 50 Time In: 0950 Time Out: 1040 JOCY DAMON PT Date: 2021 documented in this [employer] Work Phone: 1(359) 931-291412-15-2021 Evaluation note* Encounter Date Diagnosis Assessment Notes Treatment Notes Treatment Clinical Notes Sep, Dietary counseling and surveillance (ICD-10 - Z71.3) Eat well, exercise well, be well: dietary and fitness guidelines material was published Sep, Type 2 diabetes mellitus with diabetic chronic kidney disease (ICD-10 - E11.22) Managing type 2 diabetes material was published Blood sugar 50 at 3:45pm. Pt reports eating small bag of veggie straws and 2 snack size snickers at 3:20pm. Recheck glucose 98. 1. Controlled, a Type 2 diabetes with A1c of 6.6% 2. Blood glucose levels according to [employer] 2 cgm download 10/01/2021-10/14/20 21: Avg glucose 121. >250-0%, >180-11%, 70-180-81%, <70-7%, <54-1%. CV 36.4%. Reviewed download with pt, noted several glucose readings under target 12pm to 8pm, will modify basal and icr settings, see below. Note: could not afford dexcom g6. 3. Patient is alert, oriented and receptive to making changes or counseling. Notes: Seen for an assessment of current glucose pattern, changes in treatment plan, counseling and coordination of care related to diabetes, risks, and benefits of treatment, medications, and side effects. TOPICS REVIEWED: 1. Time was spent reviewing: a. Basic concepts of diabetes, progressive beta cell , concepts of basal/bolus/correc tive insulin requirements. Basal: The goal is fasting blood glucose of 90-130mg. IF fasting blood glucose starts to run under 100mg 3x's/ week, decrease dose by 10%. Bolus: The goal is to hold the blood glucose level steady meal to meal. If pt. is going to have increased physical activity after a meal, decrease the schedule meal dose prior to the activity by 30-50%. If pt. skips a meal do not take this dose. Correction: The goal is to correct an elevated glucose back into the 100-150mg range b. Nutrition: Concepts of healthy diet, encouraged to decrease saturated fat in diet and increase non-starchy vegetables and fruits in diet. BMI: Pt. needs to select one small change to decrease caloric intake or increase physical activity to help decrease weight. c. Correct treatment of hypoglycemia, carry a glucose source at all times on your person, in vehicles, and at bedside. Can use glucose tablets/4, four ounces of pop or juice equal to 15 G of carbohydrate. Blood glucose should be 100 mg/dl or higher when driving. d. ADA glucose goals for age and medical complexity reviewed e. Patient questions addressed 2. Activity/exercise: Encouraged to start any form of physical activity. Start low level and increase slowly to a minimal goal of 150 minutes/week. Limit activity to what is allowed by other issues such as cardiac, pulmonary or orthopedic restrictions. 3. Standards of care: Reminded to have an annual dilated eye exam, A1C every 3 months, urine testing for microalbumin once/year, check feet daily and report any cuts or sores that do not appear to be healing. 4. Meter: Plan to check blood glucose: Please check blood glucose levels 4 times/day. Back to back meals reveal effectiveness of bolus dosing. 5. [facility]. Contact office if any issues or concerns with patterns of hypoglycemia, hyperglycemia, or diabetes medication issues. 6. Prescriptions: Sent levothyroxine to иванaudie. Sep, Hyperlipidemia (ICD-10 - E78.5) Managing your cholesterol material was published 06/20 LDL 87 at goal, on statin Sep, HTN (hypertension) (ICD-10 - I10) Managing high blood pressure material was published on arb Sep, FCI (current) use of insulin (ICD-10 - Z79.4) Sep, Hypothyroid (ICD-10 - E03.9) Hypothyroidism material was published 08/2021 TSH 1.18, ft4 1.01 Sep, Vitamin B 12 deficiency (ICD-10 - E53.8) Good food sources of vitamin B12 material was published 05/2021 Vit. B 12 451 at target Sep, Insulin pump titration (ICD-10 - Z46.81) Using an insulin pump material was published Omnipod Basal MN 1.65, 8am 1.8, 10 am 1.6 changed to 1.5, 6pm 1.8 changed to 1.7 (TBI 39 units/day) ICR MN 1:7 changed to 1:8 ISF MN 1:27 Active insulin time 4 hours MN 120/140 4am 90/110, 8pm 120/140 Sep, BMI 32.0-32.9,adult (ICD-10 - Z68.32) Deciphering the nutrition facts label material was published 7 pound weight loss from last visit, continue with weight loss efforts [facility] [employer] Other Chief complaint+Reason for visit Narrative* Chief Complaint Screening METER Reason for Visit BMI 34.0-34.9,adult Dietary counseling and surveillance Hyperlipidemia LDL goal <100 Hypertension Hypothyroidism Insulin pump in place Type 2 diabetes mellitus [facility] Work Phone: Evaluation noteNo [facility] [employer] Other Evaluation noteNo assessment information available [facility] Work Phone: Evaluation note* Diagnosis Onset Date Resolution Status Encounter for screening mamm ogram for malignant neoplasm of breast acute Well adult exam acute BMI 34.0-34.9,adult acute Dietary counseling and surveillance acute Hyperlipidemia LDL goal <100 acute Hypertension acute Hypothyroidism acute Insulin pump in place acute Type 2 diabetes mellitus acu te [facility] Work Phone: Evaluation note* Diagnosis Onset Date Resolution Status BMI 34.0-34.9,adult acute Dietary counseling and surveillance acute Hyperlipidemia LDL goal <100 acute Hypertension acute Hypothyroidism acute Insulin pump in place acute Type 2 diabetes mellitus acu [facility] Work Phone: History general Narrative - Reported* Type Description Date Medical History DM2 1996 Medical History hypothyroidism 1996 Medical History Lt. shoulder adhesive capsulitis Medical History menopause Medical History Back Injury - Sciati c damage - work related Dr. Lucas [email or web address] Medical History HLP Medical History Fx'd Right foot - [facility] - Dr. Barboza (Podiatry) Medical History 09/2015 Insulin Pump & Continuou s Glucose Sensor Surgical History leap cone-1/3 cervix removed for high risk abnormal cells 2001 Surgical History tonsillectomy 1976 Surgical History Lt shoulder manipula tion and arthroscopy Dr Omega Lin 2010 Surgical History cholecystectomy 2009 Surgical History left thumb reconstructive surge ry 2009 Hospitalization History as above Hospitalization History CHILD X'2 2houses Other History general Narrative - Reported* Type Description Date Medical History DM2 1995 Medical History hypothyroidism 1995 Medical History Lt. shoulder adhesive capsulitis Medical History menopause Medical History Back Injury - Sciati c damage - work related Dr. Lucas [email or web address] Medical History HLP Medical History Fx'd Right foot - [facility] - Dr. Barboza (Podiatry) Medical History 09/2015 Insulin Pump & Continuou s Glucose Sensor Surgical History leap cone-1/3 cervix removed for high risk abnormal cells 2001 Surgical History tonsillectomy 1976 Surgical History Lt shoulder manipula tion and arthroscopy Dr Omega Lin 2010 Surgical History cholecystectomy 2009 Surgical History left thumb reconstructive surge ry 2009 Surgical History Left ring finger trigger releas e 06/13/23 Hospitalization History as above Hospitalization History CHILD X'2 2houses Other Assessments No Assessments Information AvailableNo Assessments Information Available Advance Directives No Advanced Directives Records Found Advance Directive Response Recorded Date/ Time Advance Directives No November 25, 2017 10:11am Advance Directive Response Recorded Date/ Time Advance Directives No November 25, 2017 11:11am Chief Complaint and Reason for Visit Chief Complaint E11.8 Chief Complaint e03.9 Chief Complaint e03.9 E11.8 e11.22 Chief Complaint E11.8 e11.22 e03.9 Chief Complaint e03.9 Dm E11.8 Chief Complaint needs rfs, not seen x 2 yrs METER Reason for Visit Encounter for screen ing mammogram for malignant neoplasm of breast Well adult exam BMI 34.0-34.9,adult Dietary counseling and surveillance Hyperlipidemia LDL goal <100 Hypertension Hypothyroidism Insulin pump in place Type 2 diabetes mellitus Summary Purpose Family History No Family History Records FoundNo Family History Records FoundNo Family History Records FoundNo Family History Records Found Reason for Referral Reason Hypothyroidism Diagnosis 1 Hypothyroidism (E03. 9) Referral Organization [facility] Referring Provider First Name Jake Referring Provider Last Name Lacy Referring Provider Specialty Nurse Esme lama Referred Organization Unknown Facility Referred Provider Char Nuñez Referred Provider Specialty Internal Med icine Referral Priority Routine Referral Appointment Date 2023-03-10 General Notes Nettie Stevens 01/29 03:54:22 PM >Scheduled for 03/10/23 at 950am. Patient informed. Referral, notes and demographics faxed to provider. Additional Source Comments INFORMATION SOURCE (unrecogn ized section and content) DATE CREATED AUTHOR 10/31/2021 [facility] DATE CREATED AUTHOR AUTHOR'S ORGANIZ ATION 12/25/2021 [facility] DATE CREATED AUTHOR AUTHOR'S ORGANIZ ATION 06/17/2023 [facility] DATE CREATED AUTHOR AUTHOR'S ORGANIZ ATION 08/06/2024 [facility] Reason for Visit (unrecogniz ed section and content) Specialty Diagnoses / Procedures Referred By Kymberly hicks Referred To Contact Physical Therapy Procedures eval and treat Marlin Phan, FLAVORINGS COMPOUNDER - AMUSEMENT EQUIPMENT OPERATOR [address] [place] [address] [facility] [address] [place] [address] Referral ID Status Reason Start Date Expiration Date Visits Re quested Visits Authorized Open 11/24/2021 11/24/2022 1 1 Referral ID Status Reason Start Date Expiration Date V isits Requested Visits Authorized Pending Review 11/24/2021 11/24/2022 1 1 Care Teams (unrecognized sec tion and content) Team Status: Active Member Role Status Dates Ailyn Willis DO Primary Care Provider Active Team Status: Inactive Member Role Status Dates iAlyn Willis DO Primary Care Provider Active Start: September 26, 2023 End: September 26, 2023 Char Nuñez MD Attending Provider Active Sta rt: September 26, 2023 End: September 26, 2023 Jake House , FLAVORINGS COMPOUNDER Referring Provider Active Start: September 26, 2023 End: September 26, 2023 Team Status: Inactive Member Role Status Dates Jake House APRN Attending Provider Active Start: October 06, 2023 End: October 06, 2023 Team Status: Inactive Member Role Status Dates Ailyn Willis DO Primary Care Provider Active Start: October 06, 2023 End: October 06, 2023 Jake House FLAVORINGS COMPOUNDER Attending Provider Active Start: October 06, 2023 End: October 06, 2023 Access Specialist Relationship Specialty Start Date End Date Ailyn Willis DO PCP - General Family Medicine 10/28/21 Access Specialist Relationship Specialty Start Date End Date Ailyn Willis DO PCP - General Family Medicine 10/28/21 Access Specialist Relationship Specialty Start Date End Date Ailyn Willis, DO PCP - General Family Medicine 10/28/21 Team Status: Inactive Member Role Status Dates Ailyn Willis DO Primary Care Provider Active Jake House APRN Attending Provider Active Team Status: Active Member Role Status Dates Ailyn Willis DO Primary Care Provider Active Jake House , FLAVORINGS COMPOUNDER Attending Provider Active Team Status: Inactive Member Role Status Dates Ailyn Willis DO Primary Care Provider Active Char Nuñez MD Attending Provider Active Team Status: Inactive Member Role Status Dates Ailyn Willis DO Primary Care Provid er, Attending Provider Active Start: January 02, 2024 End: January 02, 2024 Team Status: Inactive Member Role Status Dates Ailyn Willis DO Primary Care Provider Active Start: January 12, 2024 End: January 12, 2024 Jake House APRN Attending Provider Active Start: January 12, 2024 End: January 12, 2024 Team Status: Inactive Member Role Status Dates Ailyn Willis DO Primary Care Provid er, Attending Provider Active Start: February 25, 2024 End: Ling 27th, 2024 Team Status: Inactive Member Role Status Dates Ailyn Willis DO Primary Care Provider Active Start: May 01, 2024 End: May 01, 2024 Jake House APRN Attending Provider Active Start: May 01, 2024 End: May 01, 2024 Goals (unrecognized section and content) Goals may be documented in a n alternate section FOR RECORDS PERTAINING TO PATIENTS WHO ARE OR HAVE BEEN ENROLLED IN A CHEMICAL DEPENDENCY/SUBSTANCEABUSE PROGRAM, SOME INFORMATION MAY BE OMITTED. This clinical summary was aggregated from multiple sources. Caution should be exercised in using it in the provision of clinical care. This summary normalizes information from multiple sources, and as a consequence, information in this document may materially change the coding, format and clinical context of patient data. In addition, data may be omitted in some cases. CLINICAL DECISIONS SHOULD BE BASED ON THE PRIMARY CLINICAL RECORDS. [facility] [employer] provides no warranty or guarantee of the accuracy or completeness of information in this document.
--- NOTE | 2024-08-07 11:12 | ECG_ITS ---
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
[2024-08-07 11:29] LABS: Basophils Absolute Auto 0.1 10^3/uL (0.0-0.1); Basophils Percent Auto 0.7 % (0.2-2.0); Eosinophils Percent Auto 0.2 % (0.9-7.0); Hematocrit 41.9 % (36.0-48.0); Hemoglobin 14.1 g/dL (12.0-16.0); Immature Granulocytes Abs Auto 0.03 10^3/uL (0.00-0.03); Immature Granulocytes Pct Auto 0.3 % (0.0-0.5); Lymphocytes Absolute Auto 2.1 10^3/uL (1.2-3.8); Lymphocytes Percent Auto 17.5 % (20.5-60.0); Mean Corpuscular HGB Conc 33.7 g/dL (29.9-35.2); Mean Corpuscular Hemoglobin 30.1 pg (26.7-34.0); Mean Corpuscular Volume 89.3 fL (81.0-99.0); Mean Platelet Volume 10.4 fL (9.5-13.5); Monocytes Absolute Auto 0.6 10^3/uL (0.3-0.8); Monocytes Percent Auto 5.1 % (1.7-12.0); Neutrophils Absolute Auto 8.9 10^3/uL (1.4-6.5); Neutrophils Percent Auto 76.2 % (43.0-75.0); Platelet Count 408 10^3/uL (150-450); Red Blood Count 4.69 10^6/uL (4.20-5.40); Red Cell Distribution Width 12.4 % (11.0-15.0); White Blood Count 11.7 10^3/uL (4.0-11.0)
[2024-08-07] MEDS: PROMETHAZINE HCL 25 MG in 0.9 % SODIUM CHLORIDE 50 ML 204 MG IV (11:34)
[2024-08-07 11:36] VITALS: PULSE 119
[2024-08-07 11:47] LABS: Alanine Aminotransferase 24 U/L (14-59); Albumin Globulin Ratio 0.8; Albumin Level 3.7 g/dL (3.4-5.0); Alkaline Phosphatase 100 U/L (46-116); Anion Gap 15.7; Aspartate Amino Transferase 12 U/L (15-37); BUN Creatinine Ratio 15.2; Bilirubin Total 0.7 mg/dL (0.2-1.0); Calcium 10.2 mg/dL (8.5-10.1); Carbon Dioxide 24.9 mmol/L (21.0-32.0); Chloride 97 mmol/L (98-107); Estimated GFR (African America 43 (>=60 mL/min/1.73m^2); Estimated GFR (Non-African Ame 36 (>=60 mL/min/1.73m^2); Globulin 4.6 g/dL; Glucose 184 mg/dL (74-106); Potassium 4.6 mmol/L (3.5-5.1); Sodium 133 mmol/L (136-145); Total Protein 8.3 g/dL (6.4-8.2)
[2024-08-07 12:28] VITALS: PULSE 112; O2SAT 98
[2024-08-07] MEDS: 0.9 % SODIUM CHLORIDE 1,000 ML 1000 ML IV ×2 (13:07→14:38)
--- NOTE | 2024-08-07 13:37 | ED.GENADUL1 ---
HPI HPI - General Adult General Chief complaint: Nausea/Vomiting/Diarrhea Stated complaint: VOMITTING/GENERAL WEAKNESS Time Seen by Provider: 08/07/24 10:08 Source: patient Mode of arrival: walk-in Limitations: no limitations History of Present Illness HPI narrative: 53-year-old female to the emergency department chief complaint of abdominal pain, nausea, vomiting following administration of her first dose of Mounjaro. Patient reports she began the medication 3 days ago. Symptoms started shortly afterwards. She reports she has been dry heaving and having nausea. No actual vomitus. She reports chills without fever. Related Data Previous Rx's ?Medication ?Instructions ?Recorded promethazine 25 mg rectal 25 mg RI Q6H PRN nausea and 08/07/24 suppository vomiting #4 ea promethazine 25 mg tablet 25 mg PO Q6H PRN nausea and 08/07/24 vomiting #12 tabs Allergies Allergy/AdvReac Type Severity Reaction Status Date / Time codeine AdvReac Rash Verified 08/07/24 10:04 naproxen [From Naprosyn] AdvReac Anaphylaxis Verified 08/07/24 10:04 Opioid HPI Opioid Management Most Recent Opioid Data: Last Pain Scale 7 08/07/24 14:38 Last MAR Pain Assessment 08/07/24 14:38 Review of Systems ROS Status of ROS 10 or more systems reviewed and unremarkable except as noted in history and below PFSH PFSH Social History Smoking status: Former smoker Little interest or pleasure in doing things: not at all Feeling down, depressed, or hopeless: not at all Exam Narrative Exam Narrative: VITALS: I have reviewed the triage vital signs. GENERAL: Well developed, well appearing adult in no acute distress. NEURO: Alert and oriented. Moves all extremities. Face is symmetric and expressive. EYES: PERRL. No scleral icterus or conjunctival injection. No discharge. HENT: Normocephalic, atraumatic. Hearing is grossly intact. Nares grossly patent and without discharge. Mucous membranes moist. NECK: No JVD. Patient moves neck without restriction. CARDIO: Rhythm regular. Normal rate. No murmur, rub, or gallop. Pulses equal bilaterally in the upper and lower extremity. No lower extremity edema. PULM: Lungs clear to auscultation in all miller. No wheezes, rales, or rhonchi. No conversational dyspnea. No splinting, stridor, or accessory muscle use. GI/: Abdomen is soft and non-tender. Normoactive bowel sounds. EXTREMITIES: Symmetric muscle bulk. No joint swelling. No clubbing, cyanosis, or deformity. SKIN: Warm and dry. Normal turgor. No rash or lesions appreciated. PSYCH: Mood, affect, and interaction is appropriate to the setting. Constitutional Vital Signs, click to edit/add: Last Vital Signs Temp 97.4 F L 08/07/24 09:59 Pulse 112 H 08/07/24 12:28 Resp 19 08/07/24 12:28 BP 166/95 H 08/07/24 09:59 Pulse Ox 98 08/07/24 12:28 Course Vital Signs Vital signs: Vital Signs Temperature 97.4 F L 08/07/24 09:59 Pulse Rate 140 H 08/07/24 09:59 Respiratory Rate 24 H 08/07/24 09:59 Blood Pressure 166/95 H 08/07/24 09:59 Pulse Oximetry 98 08/07/24 09:59 Temperature 97.4 F L 08/07/24 09:59 Pulse Rate 112 H 08/07/24 12:28 Respiratory Rate 19 08/07/24 12:28 Blood Pressure 166/95 H 08/07/24 09:59 Pulse Oximetry 98 08/07/24 12:28 Medical Decision Making [facility] Narrative Medical decision making narrative: 53-year-old female to the emergency department with chief complaint of nausea, vomiting, abdominal pain after starting Mounjaro. Tachycardic, otherwise stable vitals. The patient is afebrile. Mild tenderness on exam. Will proceed with basic labs and Phenergan. Patient agrees with this plan. Lab work reviewed and noted. Mild leukocytosis. Chemistry is unremarkable. She cannot use to have tachycardia. Will proceed with fluid and CT imaging. Additional fluids were given. Her heart rate did improve. CT scan without acute findings. Patient reevaluated the bedside. She has some continued mild sinus tachycardia. Responsible supplement as above. Patient reports she feels much better however. She would like discharge home. I did discuss the persistent tachycardia with the patient offered admission for further evaluation and she declined. Will discharge home with a trial of Phenergan. She is instructed return if she worsens or does not improve over the next 48 to 72 hours. Return precautions were discussed. All questions were answered. The patient was discharged home Medical Records Medical records reviewed: Yes I reviewed the patient's medical records Lab Data Lab results reviewed: Yes I reviewed the patient's lab results Labs: Lab Results 08/07/24 Range/Units 11:21 WBC 11.7 H (4.0-11.0) 10^3/uL RBC 4.69 (4.20-5.40) 10^6/uL Hgb 14.1 (12.0-16.0) g/dL Hct 41.9 (36.0-48.0) % MCV 89.3 (81.0-99.0) fL MCH 30.1 (26.7-34.0) pg MCHC 33.7 (29.9-35.2) g/dL RDW 12.4 (11.0-15.0) % Plt Count 408 (150-450) 10^3/uL MPV 10.4 (9.5-13.5) fL Neut % (Auto) 76.2 H (43.0-75.0) % Lymph % (Auto) 17.5 L (20.5-60.0) % [place] % (Auto) 5.1 (1.7-12.0) % Eos % (Auto) 0.2 L (0.9-7.0) % Baso % (Auto) 0.7 (0.2-2.0) % Neut # (Auto) 8.9 H (1.4-6.5) 10^3/uL Lymph # (Auto) 2.1 (1.2-3.8) 10^3/uL [place] # (Auto) 0.6 (0.3-0.8) 10^3/uL Eos # (Auto) 0.0 (0.0-0.7) 10^3/uL Baso # (Auto) 0.1 (0.0-0.1) 10^3/uL Abs Immat Gran (auto) 0.03 (0.00-0.03) 10^3/uL Imm/Tot Granulo (auto) 0.3 (0.0-0.5) % Sodium 133 L (136-145) mmol/L Potassium 4.6 (3.5-5.1) mmol/L Chloride 97 L (98-107) mmol/L Carbon Dioxide 24.9 (21.0-32.0) mmol/L Anion Gap 15.7 BUN 23.0 H (7.0-18.0) mg/dL Creatinine 1.51 H (0.55-1.02) mg/dL Est GFR ( Amer) 43 L (>=60 mL/min/1.73m^2) Est GFR (Non-Af Amer) 36 L (>=60 mL/min/1.73m^2) BUN/Creatinine Ratio 15.2 Glucose 184 H (74-106) mg/dL Calcium 10.2 H (8.5-10.1) mg/dL Total Bilirubin 0.7 (0.2-1.0) mg/dL AST 12 L (15-37) U/L ALT 24 (14-59) U/L Alkaline Phosphatase 100 (46-116) U/L Troponin I High Sens 12.0 (4.0-51.3) pg/mL Total Protein 8.3 H (6.4-8.2) g/dL Albumin 3.7 (3.4-5.0) g/dL Globulin 4.6 g/dL Albumin/Globulin Ratio 0.8 Lipase 14.0 L (16.0-77.0) U/L Imaging Data CT scan - abdomen: Radiologist's impression: ITS Impressions Abdomen/Pelvis CT 08/07/24 14:11 IMPRESSION: 1. No acute or suspicious findings to account for patient's symptoms. Electronically authenticated by: ANGELA DESAI Date: 08/07/2024 14:27 ECG Data Attestation: I personally reviewed and interpreted this ECG as follows: (Sinus tachycardia at a rate of 119. No STEMI. QTc 393, normal.) Discharge Plan Discharge Chief Complaint: Nausea/Vomiting/Diarrhea Clinical Impression: Nausea and vomiting, Acute dehydration Patient Disposition: Home, Self-Care Time of Disposition Decision: 15:49 Condition: Good Mode of Transportation: Private Vehicle Prescriptions / Home Meds: New promethazine 25 mg tablet 25 mg PO Q6H PRN (Reason: nausea and vomiting) Qty: 12 0RF promethazine 25 mg suppository 25 mg RI Q6H PRN (Reason: nausea and vomiting) Qty: 4 0RF Print Language: Divehi Instructions: Acute Nausea and Vomiting (ED) Additional Instructions: Call the office of your primary care doctor to arrange for follow-up within the above-stated timeframe. Your ED visit was focused on your acute issue and does not replace primary care. You should review your labs, imaging, and diagnoses from this ED visit with your primary care physician. There may be non-emergent/ incidental findings that need further evaluation. You should review your vital signs including blood pressure with your PCP. If you were prescribed medications you should discuss possible side-effects and drug interactions with your pharmacist. Call 911 or go to the nearest Emergency Department if you develop any new or worsening symptoms. Seek immediate medical attention if you develop: worsening abdominal pain, new or worsening nausea, new or worsening vomiting, new or worsening diarrhea, chest pain, shortness of breath, pain with urination, problems urinating, fever, chills, weakness, or any new or worsening symptoms. Push fluids at home. Use Phenergan tablets as needed for nausea and vomiting. If you cannot keep anything down including the medications use the Phenergan suppository. Follow-up with your doctor. Referrals: AILYN WILLIS [Primary Care Provider] - 1 week
--- NOTE | 2024-08-07 14:11 | CT_ITS ---
The [address] [address] Patient Name: VERONICA NATION MRN: [id number] date: 1970 Sex: F Assigned Patient Location: ER Current Patient Location: ER Accession/Order Number: [id number] Exam Date: 08/07/2024 14:00 Report Date: 08/07/2024 14:27 At the request of: LURDES DIAZ Procedure: CT abdomen pelvis w con EXAMINATION: CT abdomen pelvis w con HISTORY: abdominal pain, vomiting COMPARISON: CT abdomen pelvis 10/14/2023 TECHNIQUE: Axial, Coronal, and Sagittal images were obtained without and/or with IV contrast as indicated by examination type. Dose reduction techniques were achieved by using automated exposure control and/or adjustment of mA and/or kV according to patient size and/or use of iterative reconstruction technique. FINDINGS: LUNG BASES: No visible pulmonary or pleural disease. LIVER: No enlargement, atrophy, suspicious density, or significant focal lesion. BILIARY: Cholecystectomy. PANCREAS: No lesion, fluid collection, or abnormal duct dilatation. SPLEEN: No enlargement or focal lesion. ADRENALS: No mass or enlargement. KIDNEYS: No mass, obstruction, or calcification. BOWEL/MESENTERY: No visible mass, obstruction, or bowel wall thickening. AORTA/VASCULAR: No aneurysm or dissection. RETROPERITONEUM: No mass or adenopathy. LYMPH NODES: No adenopathy. URINARY BLADDER: No visible focal wall thickening, lesion, or calculus. PELVIC ORGANS: No visible mass. Pelvic organs appropriate for patient age. ABDOMINAL WALL: No mass or hernia. BONES: No bony lesion or fracture. OTHER: Negative. CT/CT abdomen pelvis w con IMPRESSION: 1. No acute or suspicious findings to account for patient's symptoms. Electronically authenticated by: ANGELA DESAI Date: 08/07/2024 14:27
[2024-08-07] MEDS: ACETAMINOPHEN 500 MG TABLET 1000 MG PO (14:38)
[2024-08-07 16:00] VITALS: BP 112/68; PULSE 120; O2SAT 96
== END 2024-08-07 16:00 | disposition home or self-care (01) ==
PROVIDERS: Emergency Provider Student in an Organized Health Care Education/Training Program; PCP Family Medicine
DX: R11.2 Nausea with vomiting, unspecified (principal); E86.0 Dehydration; Z87.891 Personal history of nicotine dependence
CPT/HCPCS: 36415; 74177; 80053; 83690; 84484; 85025; 93005; 96360; 96361; 99285; J2250; Q9967

== ENCOUNTER 2024-12-13 08:03 | Emergency (ER) | payer BC, SELFPAY ==
[2024-12-13 08:13] VITALS: BP 156/73; PULSE 84; TEMP 36.7; O2SAT 100; BMI 29.6
--- NOTE | 2024-12-13 08:29 | XR_ITS ---
The [address] [address] Patient Name: VERONICA NATION MRN: [id number] date: 1970 Sex: F Assigned Patient Location: ER Current Patient Location: ER Accession/Order Number: [id number] Exam Date: 12/13/2024 08:35 Report Date: 12/13/2024 08:58 At the request of: MAYURI RAE Procedure: XR lumbar spine 2-3V EXAMINATION: XR lumbar spine 2-3V HISTORY: Fall COMPARISON: CT abdomen pelvis 08/07/2024 FINDINGS: BONES: No appreciable fracture or spondylolisthesis. Slight curvature of the thoracolumbar spine. DISC SPACES: Minimal narrowing L5-S1. PARASPINOUS: Negative. No paraspinous abnormality is seen. OTHER: Negative. XR/XR lumbar spine 2-3V IMPRESSION: 1. No appreciable acute abnormality. 2. Minimal curvature of the thoracolumbar spine; positioning versus muscle spasm. 3. L5-S1 mild degenerative disc disease; also present on prior CT study. Electronically authenticated by: ANGELA DESAI Date: 12/13/2024 08:58
--- NOTE | 2024-12-13 08:32 | ED.BACK1 ---
HPI HPI - Back Pain/Injury General Chief Complaint: Back Pain/Injury Stated Complaint: FALL, BACK PAIN Time Seen by Provider: 12/13/24 08:25 Source: patient Mode of arrival: walk-in Limitations: no limitations History of Present Illness HPI Narrative: 54-year-old female presents for lower back pain. This morning at 7 AM she slipped on ice and fell and hit this area. She did not hit her head. No weakness or numbness. It hurts more to move Related Data Home Medications ?Medication ?Instructions ?Recorded ?Confirmed atorvastatin 20 mg tablet 20 mg PO DAILY 12/13/24 12/13/24 insulin pump cart,auto,BT,G6/7 12/13/24 12/13/24 (Omnipod 5 G6-G7 Pods (Gen 5) subcutaneous cartridge) levothyroxine 150 mcg tablet 150 mcg PO DAILY 12/13/24 12/13/24 metoprolol succinate 50 mg 50 mg PO DAILY 12/13/24 12/13/24 tablet,extended release 24 hr Previous Rx's ?Medication ?Instructions ?Recorded promethazine 25 mg rectal 25 mg MA Q6H PRN nausea and 08/07/24 suppository vomiting #4 ea promethazine 25 mg tablet 25 mg PO Q6H PRN nausea and 08/07/24 vomiting #12 tabs tramadol 50 mg tablet 50 mg PO Q6H PRN pain 5 days #20 12/13/24 tabs Allergies Allergy/AdvReac Type Severity Reaction Status Date / Time codeine AdvReac Rash Verified 12/13/24 08:13 naproxen (From Naprosyn) AdvReac Anaphylaxis Verified 12/13/24 08:13 Monjaro AdvReac Nausea Uncoded 12/13/24 08:13 Opioid HPI Opioid Management Most Recent Opioid Data: Last Pain Scale 7 08/07/24 14:38 08/07/24 Review of Systems ROS Narrative A ten point review of systems is negative except as noted above. PFSH PFSH Social History Smoking status: Former smoker Little interest or pleasure in doing things: not at all Feeling down, depressed, or hopeless: not at all Exam Narrative Exam Narrative: Nurses note and vital signs reviewed and patient is not hypoxic. General: The patient appears well and in no apparent distress. Patient is resting comfortably on cart. Skin: Warm, dry, no pallor noted. There is no rash noted. Head: Normocephalic, atraumatic Eye: Normal conjunctiva, no drainage Ears, Nose, Mouth, and Throat: oral mucosa is moist. Nares patent. Cardiovascular: Regular Rate and Rhythm Respiratory: Patient is in no distress, no accessory muscle use Back: No bruise or abrasion to the back. She has tenderness in the lumbar area. GI: Soft and nontender Musculoskeletal: The patient has no evidence of calf tenderness, no pitting edema, symmetrical pulses noted bilaterally Neurological: A&O, normal speech Psychiatric: Cooperative Constitutional Vital Signs, click to edit/add: Last Vital Signs Temp 98.0 F 12/13/24 08:13 Pulse 84 12/13/24 08:13 Resp 20 12/13/24 08:13 BP 156/73 H 12/13/24 08:13 Pulse Ox 100 12/13/24 08:13 O2 Del Method Room Air 12/13/24 08:13 Course Vital Signs Vital signs: Vital Signs Temperature 98.0 F 12/13/24 08:13 Pulse Rate 84 12/13/24 08:13 Respiratory Rate 20 12/13/24 08:13 Blood Pressure 156/73 H 12/13/24 08:13 Pulse Oximetry 100 12/13/24 08:13 Oxygen Delivery Method Room Air 12/13/24 08:13 Temperature 98.0 F 12/13/24 08:13 Pulse Rate 84 12/13/24 08:13 Respiratory Rate 20 12/13/24 08:13 Blood Pressure 156/73 H 12/13/24 08:13 Pulse Oximetry 100 12/13/24 08:13 Oxygen Delivery Method Room Air 12/13/24 08:13 MDM - Back Pain/Injury MDM Narrative Medical decision making narrative: X-rays are negative for acute findings per radiologist and she is able to be discharged home with a prescription for Ultram. Treatment diagnosis and follow-up were discussed with the patient. Differential Diagnosis Differential diagnosis: Likely other (Contusion, fracture) Imaging Data Lumbar x-rays: Radiologist's impression: ITS Impressions Lumbar Spine X-Ray 12/13/24 08:29 IMPRESSION: 1. No appreciable acute abnormality. 2. Minimal curvature of the thoracolumbar spine; positioning versus muscle spasm. 3. L5-S1 mild degenerative disc disease; also present on prior CT study. Electronically authenticated by: ANGELA DESAI Date: 12/13/2024 08:58 Discharge Plan Discharge Chief Complaint: Back Pain/Injury Clinical Impression: Back contusion Patient Disposition: Home, Self-Care Time of Disposition Decision: 09:06 Condition: Good Mode of Transportation: Private Vehicle Prescriptions / Home Meds: New tramadol 50 mg tablet 50 mg PO Q6H PRN (Reason: pain) 5 Days Qty: 20 0RF No Action promethazine 25 mg tablet 25 mg PO Q6H PRN (Reason: nausea and vomiting) Qty: 12 0RF promethazine 25 mg suppository 25 mg MA Q6H PRN (Reason: nausea and vomiting) Qty: 4 0RF atorvastatin 20 mg tablet 20 mg PO DAILY (DME) Omnipod 5 G6-G7 Pods (Gen 5) Cartridge SUBCUT levothyroxine 150 mcg tablet 150 mcg PO DAILY metoprolol succinate 50 mg tablet extended release 24 hr 50 mg PO DAILY Print Language: Slovenian Instructions: Contusion in Adults (ED) Referrals: AILYN WILLIS [Primary Care Provider] - 1 week
[2024-12-13] MEDS: TRAMADOL HCL 50 MG TABLET PO (08:45)
== END 2024-12-13 09:23 | disposition home or self-care (01) ==
PROVIDERS: Emergency Provider Emergency Medicine; PCP Family Medicine
DX: S30.0XXA Contusion of lower back and pelvis, initial encounter (principal); W00.0XXA Fall on same level due to ice and snow, initial encounter; M51.379 Other intervertebral disc degeneration, lumbosacral region without mention of lumbar back pain or lower extremity pain; Z87.891 Personal history of nicotine dependence
CPT/HCPCS: 72100; 99283

== ENCOUNTER 2025-08-07 08:36 | Emergency (ER) | payer BC, SELFPAY ==
[2025-08-07] VITALS (19 sets, daily range): BP systolic 127–156; BP diastolic 76–95; PULSE 98–122; TEMP 36.3; O2SAT 78–100; BMI 28.4
--- OUTSIDE RECORDS SUMMARY | 2025-08-07 08:44 | XMS_ITS | CCD ---
Author Organization [facility] CliniSywy Care Team Providers Care Garnisher Name Role Phone Ailyn Willis Primary Care Provider Unavailab le Jake House Attending Provider Unavailable KIANA MCKINNON Referring Unavailable LAZARO, AILYN Primary Care Unavailable KIANA MCKINNON Referring Unavailable LAZARO, AILYN Primary Care Unavailable KIANA MCKINNON Referring Unavailable LAZARO, AILYN Primary Care Unavailable Willis DO, Ailyn Primary Care Provider Unavaila ble ARIADNA, [...] Referring Unavailable WILLIS, AILYN Primary Care Unavailable Sidney Housedra Unavailable Ailyn Willis Unavailable Marlin Ivan Unavailable DO Ailyn Willis Primary Care Provider SWATHI Housea Dexter Attending Provider [phone] DO Ailyn Willis Primary Care Provider Map, SWATHI Tondra K Attending Provider [phone] DO Ailyn Willis Primary Care Provider MapSWATHI millera K Attending Provider [phone] MD Char Nuñez Attending Provider Paty Guaman Unavailable Hernesto Mckenzie Admitting Unavail able Hernesto Mckenzie Attending Unavail able WILLIS, AILYN R Primary Care Unavailable Navya Atkinson Unavailable DO Ailyn Willis R Primary Care Provider MD Char Nuñez Attending Provider Mapus, CHEESE TESTER Tondra K Referring Provider [phone] Mapus, CHEESE TESTER Tondra K Attending Provider DO Ailyn Willis R Primary Care Provider Lazaro, Ailyn R Attending Provider Lazaro, Ailyn R Primary Care Provider Mapus, CHEESE TESTER Tondra K Attending Provider Mapus, Tondra K Admitting Unavailable Willis, Ailyn R Primary Care Unavailable Mapus, Tondra K Attending Unavailable Ailyn Willis R Consulting Unavailable Ailyn Willis R Primary Care Unavailable Cahr Nuñez Attending Unavailable Char Nuñez Admitting Unavailable Mapus, Tondra K Referring Unavailable Mapus, Tondra K Admitting Unavailable Ailyn Willis R Primary Care Unavailable Mapus, Tondra K Attending Unavailable Lazaro, Ailyn R Admitting Unavailable WillisAilyn mckee R Attending Unavailable Willis, Ailyn R Primary Care Unavailable Mapus, Tondra K Attending Unavailable Mapus, Tondra K Admitting Unavailable Willis, Ailyn R Primary Care Unavailable Ailyn Willis DO R Primary Care Provider Mapus CHEESE TESTER, Tondra K Attending Provider Ailyn Willis DO R Primary Care Provider Mapus CHEESE TESTER, Tondra K Attending Provider Unavailable Unavailable Unavailable Allergies Allergy Classification Reported Allergen(s) Allergy Type Date of Onset Reaction(s) Facility (20 sources) Codeine; Translations: [codeine] Drug Allergy 9 Rash, Unknown [facility] (20 sources) Naproxen; Translations: [naproxen] Drug Allergy 9 Anaphylaxis, Unknown [facility] (4 sources) mounjaro Propensity to adverse reactions 4 [facility] Medications Current Medications Medication Drug Class(es) [...] 1 tablet by mouth every twelve hours as needed Acetaminophen (Tylenol Arthritis Pain) 650 mg tablet extended release Active 650 MG PO Every 12 hours as needed January 12, 2024 12:00am Complies with drug therapy take 2 tablets by mo uth every eight hours Acetaminophen ER 650 MG 2 tablets as nee ded Orally every 8 hrs PRN Active take 2 tablets by mo uth every eight hours as needed Acetaminophen ER 650 MG 2 tablets as nee ded Orally every 8 hrs PRN Active atorvastatin 20 mg oral tablet (20 sources) HMG-CoA Reductase Inhibitor Start: 12-12-2024 take 1 tablet by mouth once daily Atorvastatin 20 mg tablet Active 0 .ROUTE .COMPLEX December 12, 2024 9:07am TAKE ONE TABLET BY MOUTH EVERY DAY Complies with drug therapy Start: 11-18-2018 End: 12-12-2024 take 1 tablet by mouth once daily Atorvastatin 20 mg tablet Discontinued 20 MG PO Daily January 02, 2024 10:27am January 06, 2024 1:26pm Blood-Glucose Sensor (Dexcom G6 Sensor) device (8 sources) Start: 01-07-2025 Blood-Glucose Sensor (Dexcom G6 Sensor) device Active 0 .MEDSUPPLY January 07, 2025 7:53am As directed SQ, Change every 10 days Start: 12-27-2023 End: 01-07-2025 Blood-Glucose Sensor (Dexcom G6 Sensor) device Discontinued 0 .MEDSUPPLY December 27, 2023 1:00am January 07, 2025 7:53am As directed SQ, Change every 10 days Start: 12-27-2023 Blood-Glucose Sensor (Dexcom G6 Sensor) device Active 0 .MEDSUPPLY December 27, 2023 12:00am As directed SQ, Change every 10 days Start: 12-27-2023 Blood-Glucose Sensor (Dexcom G6 Sensor) device Active 0 .MEDSUPPLY December 27, 2023 1:00am As directed SQ, Change every 10 days Blood-Glucose Transmitter (Dexcom G6 Transmitter) device (8 sources) Start: 01-07-2025 Blood-Glucose Transmitter (Dexcom G6 Transmitter) device Active 0 .Route January 07, 2025 7:53am As directed SQ, Change every 90 days Start: 12-27-2023 End: 01-07-2025 Blood-Glucose Transmitter (D excom G6 Transmitter) device Discontinued 0 .Route December 27, 2023 1:00am January 07, 2025 7:53am As directed SQ, Change every 90 days Start: 12-27-2023 Blood-Glucose Transmitter (Dexcom G6 Transmitter) device Active 0 .Route December 27, 2023 12:00am As directed SQ, Change every 90 days Start: 12-27-2023 Blood-Glucose Transmitter (Dexcom G6 Transmitter) device Active 0 .Route December 27, 2023 1:00am As directed SQ, Change every 90 days cetirizine hydrochloride 10 mg oral tablet (20 sources) Histamine-1 Receptor Antagonist take 1 tablet by mouth once daily ZyrTEC Allergy 10 MG 1 tablet Orally Once a day Active cholecalciferol 5500 unt / vitamin k2 0.2 mg oral tablet (2 sources) Vitamin D Start: take 137.5-200 ug by mouth once daily Vitamin D3-Vitamin K2 137.5-200 mcg tablet Active 1 TAB PO Daily November 13, 2024 1:00am Complies with drug therapy FreeStyle Kellen 2 Sensor - (9 sources) [...] Precision James Test - (20 sources) FreeStyle Precision James Test - use with Freestyle Kellen [...] pump Subcutaneous as directed Sep, Active Insulin Pump Cart,Automated,Bt (Omnipod 5 G6 Pods (Gen 5)) cartridge (20 sources) Start: 08-09-2024 Insulin Pump Cart,Automated,B t (Omnipod 5 G6 Pods (Gen 5)) cartridge Active 0 .ROUTE .COMPLEX August 09, 2024 7:14am use as directed with OMNIPOD SYSTEM - CHANGE every 72 hours Start: 08-09-2024 Insulin Pump C art,Automated,Bt (Omnipod 5 G6 Pods (Gen 5)) cartridge Active 0 .ROUTE .COMPLEX August 09, 2024 8:14am use as directed with OMNIPOD SYSTEM - CHANGE every 72 hours Start: 04-23-2024 End: 08-09-2024 Insulin Pump Cart,Automated, Bt (Omnipod 5 G6 Pods (Gen 5)) cartridge Discontinued 0 .ROUTE .COMPLEX April 23, 2024 8:56am August 09, 2024 7:15am use as directed with OMNIPOD SYSTEM - CHANGE every 72 hours Start: 04-23-2024 End: 08-09-2024 Insulin Pump Cart,Automated, Bt (Omnipod 5 G6 Pods (Gen 5)) cartridge Discontinued 0 .ROUTE .COMPLEX April 23, 2024 9:56am August 09, 2024 8:15am use as directed with OMNIPOD SYSTEM - CHANGE every 72 hours Start: 04-23-2024 Insulin Pump C art,Automated,Bt (Omnipod 5 G6 Pods (Gen 5)) cartridge Active 0 .ROUTE .COMPLEX April 23, 2024 9:56am use as directed with OMNIPOD SYSTEM - CHANGE every 72 hours Start: 03-23-2024 End: 04-23-2024 Insulin Pump Cart,Automated, Bt (Omnipod 5 G6 Pods (Gen 5)) cartridge Discontinued 0 .ROUTE .COMPLEX March 23, 2024 6:36am April 23, 2024 8:56am USE DIRECTED WITH OMNIPOD SYSTEM SUBCUTANEOUSLY - CHANGE EVERY 72 HOURS Start: 03-23-2024 End: 04-23-2024 Insulin Pump Cart,Automated, Bt (Omnipod 5 G6 Pods (Gen 5)) cartridge Discontinued 0 .ROUTE .COMPLEX March 23, 2024 7:36am April 23, 2024 9:56am USE DIRECTED WITH OMNIPOD SYSTEM SUBCUTANEOUSLY - CHANGE EVERY 72 HOURS Start: 02-13-2024 End: 03-23-2024 Insulin Pump Cart,Automated, Bt (Omnipod 5 G6 Pods (Gen 5)) cartridge Discontinued 0 .Route 2 February 13, 2024 9:17am March 23, 2024 6:37am As directed Use with OmniPod system SQ, Change every 72 hours Start: 02-13-2024 End: 03-23-2024 Insulin Pump Cart,Automated, Bt (Omnipod 5 G6 Pods (Gen 5)) cartridge Discontinued 0 .Route 2 February 13, 2024 10:17am March 23, 2024 7:37am As directed Use with OmniPod system SQ, Change every 72 hours Start: 12-27-2023 End: 02-13-2024 Insulin Pump Cart,Automated, Bt (Omnipod 5 G6 Pods (Gen 5)) cartridge Discontinued 0 .Route 6 December 27, 2023 3:16pm February 13, 2024 9:19am As directed Use with OmniPod system SQ, [...] cartridge Discontinued 0 .Route December 27, 2023 12:00am December 27, 2023 3:18pm As directed Start: 12-27-2023 End: 12-27-2023 Insulin Pump Cart,Automated, Bt (Omnipod 5 G6 Pods (Gen 5)) cartridge Discontinued 0 .Route December 27, 2023 1:00am December 27, 2023 4:18pm As directed levothyroxine sodium 0.15 mg oral tablet (20 sources) l-Thyroxine Start: 01-02-2024 End: 02-14-2025 take 1 tablet by mouth once daily Levothyroxine (Synthroid) 150 mcg tablet Active 150 MCG PO Daily February 14, 2025 11:46am Complies with drug therapy Start: 08-31-2022 take 1 tablet by gail [...] morning orally daily for 90 day(s) Active losartan potassium 25 mg oral tablet (20 sources) Angiotensin 2 Receptor Joelle Start: 12-14-2024 take 1 tablet by mouth once daily Losartan 25 mg tablet Active 0 .ROUTE .COMPLEX December 14, 2024 9:37am TAKE ONE TABLET BY MOUTH EVERY DAY Complies with drug therapy Start: 01-02-2024 End: 12-14-2024 take 1 tablet by mouth once daily Losartan 25 mg tablet Discontinued 25 MG PO Daily January 02, 2024 10:27am January 06, 2024 1:26pm Losartan Potassi um 25 mg TAKE 1 TABLET DAILY Active magnesium oxide 400 mg oral capsule (20 sources) Start: 11-18-2018 take 1 capsule by mouth once daily Magnesium Oxide 400 mg Capsule Active 400 MG PO Daily November 18, 2018 1:00am Complies with drug therapy take 1 capsule by mouth once farrah ly Magnesium Oxide 400 MG 1 capsule Orally Once a day Active 24 hr metoprolol succinate 50 mg extended release oral tablet (20 sources) beta-Adrenergic Joelle Start: 11-13-2024 take 1 tablet by mouth once daily Metoprolol Succinate 50 mg tablet extended release 24 hr Active 50 MG PO Daily November 13, 2024 8:40am Complies with drug therapy Start: 11-05-2024 End: 11-13-2024 take 1 tablet by mouth once daily Metoprolol Succinate 50 mg tablet extended release 24 hr Discontinued 0 .ROUTE .COMPLEX November 05, 2024 10:09am November 13, 2024 8:41am TAKE ONE TABLET BY MOUTH EVERY DAY Start: 01-02-2024 End: 11-05-2024 take 1 tablet by mouth once daily Metoprolol Succinate 50 mg tablet extended release 24 hr Discontinued 50 MG PO Daily January 02, 2024 10:29am November 05, 2024 10:09am Start: 11-18-2018 End: 01-02-2024 take 1 tablet by mouth once daily Metoprolol Tartrate 50 mg Tablet Discontinued 50 MG PO Daily November 18, 2018 1:00am January 02, 2024 10:29am Metoprolol Succi maddison ER 50 mg TAKE 1 TABLET DAILY (NEEDS AN APPOINTMENT IN 2021) Active omeprazole 20 mg delayed release oral capsule (20 sources) Proton Pump Inhibitor Start: 11-13-2024 take 1 capsule by mouth once daily Omeprazole 20 mg capsule,delayed release(DR/EC) Active 20 MG PO Daily November 13, 2024 8:41am Complies with drug therapy Start: 11-12-2024 End: 11-13-2024 take 1 capsule by mouth once daily Omeprazole 20 mg capsule,delayed release(DR/EC) Discontinued 0 .ROUTE .COMPLEX November 12, 2024 2:26pm November 13, 2024 8:41am TAKE ONE CAPSULE BY MOUTH EVERY DAY Start: 11-18-2018 End: 11-12-2024 take 1 tablet by mouth once daily Omeprazole 20 mg tablet,delayed release (DR/EC) Discontinued 20 MG PO Daily January 02, 2024 10:30am January 06, 2024 1:26pm take 1 capsule by mo [facility] every twenty-four hours Omeprazole 20 MG 1 capsule Orally Once a day Active Omnipod 5 G6 Pod (Gen 5) [...] Active vitamin b12 1 mg oral capsule (7 sources) Vitamin B12 Start: 01-12-2024 take 1 capsule by mouth once daily Cyanocobalamin (Vitamin B-12) 1,000 mcg capsule Active 1000 MCG PO daily January 12, 2024 12:00am Complies with drug therapy Vitamin D 2000 UNIT (20 sources) Vitamin D 2000 U NIT Orally Active Vitamin D 2000 U NIT Orally Not-Taking Completed/Discontinued Medications Medication Drug Class(es) Dates Sig (Normalized) Sig (Original) acetaminophen 325 mg / HYDROcodone bitartrate 5 mg oral tablet (11 sources) Opioid Agonist Start: 11-18-2018 End: 12-25-2018 take 1 tablet by mouth every four hours as needed for pain Hydrocodone-Aceta minophen ([place]) 5-325 mg tablet Discontinued 1 TAB PO Q4H as needed for pain 10 November 18, 2018 December 25, 2018 7:53pm amoxicillin 875 mg oral tablet (11 sources) Penicillin-class Antibacterial Start: 12-12-2018 End: 12-25-2018 take 1 tablet by mouth twice daily Amoxicillin 875 mg Tablet Discontinued 875 MG PO Twice daily December 12, 2018 1:00am December 25, 2018 7:53pm B-12 - up to 1000 mcg (20 sources) Start: 02-22-2013 B-12 - up to 1000 mcg Jan, 1 biotin 1 mg oral capsule (13 sources) Start: 11-18-2018 End: 01-12-2024 take 1 capsule by mouth once daily Biotin 1 mg Capsule Discontinued 1 MG PO Daily November 18, 2018 1:00am January 12, 2024 7:57am 12 hr cetirizine hydrochloride 5 mg / pseudoephedrine hydrochloride 120 mg extended release oral tablet (20 sources) alpha-Adrenergic Agonist, Histamine-1 Receptor Antagonist Start: 01-06-2024 End: 05-01-2024 take 1 tablet by mouth every twelve hours as needed Cetirizine-Pseudo ephedrine 5-120 mg tablet extended release 12 hr Discontinued 1 TAB PO Once as needed for allergy symptoms January 06, 2024 12:26pm May 01, 2024 6:38am Start: 01-06-2024 End: 05-01-2024 take 1 tablet by mouth once Cetirizine-Pseudoephedrine Discontinued 1 TAB PO Once January 06, 2024 1:26pm May 01, 2024 7:38am Start: 01-06-2024 take 1 tablet by gail th once Cetirizine-Pseudoephedrine Active 1 TAB PO Once January 06, 2024 1:26pm Start: 01-02-2024 End: 01-06-2024 take 1 tablet by mouth every twelve hours as needed Cetirizine-Pseudoephedrine 5-120 mg tabl et extended release 12 hr Discontinued 1 TAB PO Once as needed for allergy symptoms January 02, 2024 9:27am January 06, 2024 12:26pm Start: 01-02-2024 End: 01-06-2024 take 1 tablet by mouth once Cetirizine-Pseudoephedrine Discontinued 1 TAB PO Once January 02, 2024 10:27am January 06, 2024 1:26pm Start: 01-02-2024 End: 05-01-2024 take 1 tablet by mouth every twelve hours as needed Cetirizine-Pseudoephedrine 5-120 mg tabl et extended release 12 hr Discontinued 1 TAB PO Once as needed for allergy symptoms January 06, 2024 1:26pm May 01, 2024 7:38am Start: 01-02-2024 End: 01-02-2024 take 1 tablet by mouth every twelve hours as needed Cetirizine-Pseudoephedrine 5-120 mg tabl et extended release 12 hr Discontinued 1 TAB PO Once as needed for allergy symptoms January 02, 2024 12:00am January 02, 2024 9:29am Start: 01-02-2024 End: 01-02-2024 take 1 tablet by mouth once Cetirizine-Pseudoephedrine Discontinued 1 TAB PO Once January 02, 2024 1:00am January 02, 2024 10:29am cholecalciferol 0.05 mg oral capsule (13 sources) Vitamin D Start: 11-18-2018 End: 11-13-2024 take 1 capsule by mouth once daily Cholecalciferol (Vitamin D3) (Vitamin D3) 2,000 unit Capsule Discontinued 2000 UNIT PO Daily November 18, 2018 1:00am November 13, 2024 8:40am cranberry preparation 250 mg oral capsule (20 sources) Non-Standardized Food Allergenic Extract, Non-Standardized Plant Allergenic Extract Cranberry 250 MG Orally prn PRN Not-Taking Cranberry 250 MG Orally prn PRN Active Cranberry 250 MG Orally prn PRN Active cyclobenzaprine hydrochloride 10 mg oral tablet (13 sources) Muscle Relaxant Start: 11-18-2018 End: 01-02-2024 take 1 tablet by mouth three times daily as needed for muscle spasms Cyclobenzaprine 10 mg tablet Discontinued 10 MG PO Three times daily as needed for muscle spasm 10 November 18, 2018 1:00am January 02, 2024 10:06am diclofenac sodium 0.01 mg/mg topical gel (11 sources) Nonsteroidal Anti-inflammatory Drug Start: 12-12-2018 End: 12-25-2018 Diclofenac Sodium (Voltaren) 1 % gel Discontinued 4 GM TOPICAL Four times daily as needed for pain 100 December 12, 2018 1:00am December 25, 2018 7:53pm Apply to R knee for pain (max 16 gr per day) FreeStyle Kellen 2 [place] - (17 sources) Start: 06-26-2021 FreeStyle Kellen 2 [place] - as directed In Vitro Daily for 365 days May, Not-Taking Start: 06-26-2021 FreeStyle Libr e 2 [place] - as directed In Vitro Daily for 365 days May, Active insulin lispro 100 unt/ml injectable solution (20 sources) Insulin Analog Start: 01-12-2024 End: 09-06-2024 inject 90 [IU] by subcutaneous injection once daily Insulin Lispro (Humalog U-100 Insulin) 100 unit/mL solution Discontinued 0 SUBCUT .COMPLEX 90 August 09, 2024 8:14am September 06, 2024 3:33pm 90 units insulin pump daily Subcutaneous As Directed; Start: 12-12-2018 End: 01-12-2024 Insulin Lispro (Humalog U-10 0 Insulin) 100 unit/mL Cartridge Discontinued December 12, 2018 1:00am January 12, 2024 7:54am inject 90 [IU] by hooker bcutaneous injection once daily HumaLOG 100 UNIT/ML 90 units insulin pump daily Subcutaneous As Directed for 90 days Active inject 100 [IU] by s ubcutaneous injection once daily HumaLOG 100 UNIT/ML 100 units/day insulin pump SQ as directed for 90 day(s) Active inject 100 [IU] by s ubcutaneous injection once Humalog U100 100 units/day per Pump SQ daily for 90 day(s) Active inject 100 [IU] by s ubcutaneous injection once Humalog U100 100 units/day per Pump SQ daily Active Insulin Lispro (Humalog U-100 Insulin) 100 unit/mL solution (6 sources) Start: 01-12-2024 End: 08-09-2024 inject 90 [IU] by subcutaneous injection once daily Insulin Lispro (Humalog U-100 Insulin) 100 unit/mL solution Discontinued 0 SUBCUT .COMPLEX January 11, 2024 11:00pm August 09, 2024 7:15am 90 units insulin pump daily Subcutaneous As Directed; Start: 01-12-2024 End: 08-09-2024 inject 90 [IU] by subcutaneous injection once daily Insulin Lispro (Humalog U-100 Insulin) 100 unit/mL solution Discontinued 0 SUBCUT .COMPLEX January 12, 2024 12:00am August 09, 2024 8:15am 90 units insulin pump daily Subcutaneous As Directed; Start: 01-12-2024 inject 90 [IU] by hooker bcutaneous injection once daily Insulin Lispro (Humalog U-100 Insulin) 100 unit/mL solution Active 0 SUBCUT .COMPLEX January 12, 2024 12:00am 90 units insulin pump daily Subcutaneous As Directed; lisinopril 10 mg oral tablet (13 sources) Angiotensin Converting Enzyme Inhibitor Start: 11-18-2018 End: 01-02-2024 take 1 tablet by mouth once daily Lisinopril 10 mg Tablet Discontinued 10 MG PO Daily November 18, 2018 1:00am January 02, 2024 10:09am Omnipod 5 G6 Intro (Gen 5) - [...] sources) Phenothiazine Start: 12-25-2018 End: 01-02-2024 take 1 tablet by mouth every six hours as needed for nausea Promethazine 25 mg Tablet Discontinued 25 MG PO Q6H as needed for Nausea December 25, 2018 1:00am January 02, 2024 10:09am Start: 03-03-2015 take 1 tablet by gail th every twelve hours Promethazine HCl 25 MG 1 tablet as needed Orally every 12 hrs for 30 day(s) PRN February, Not-Taking Tirzepatide (14 sources) Start: 01-12-2024 End: 05-01-2024 Tirzepatide (Mounjaro) 2.5 m g/0.5 mL pen injector Discontinued 2.5 MG SUBCUT every week January 12, 2024 6:57am May 01, 2024 6:39am Start: 01-12-2024 End: 05-01-2024 Tirzepatide (Mounjaro) 2.5 [...] Discontinued 2.5 MG SUBCUT January 02, 2024 12:00am January 12, 2024 6:59am FreeTextSi.5mg Subcutaneous once weekly; Note: Source Status: sample glenda in office; Provider: Lacy Renteria Start: 01-02-2024 End: 01-12-2024 inject 2.5 mg by subcutaneous injection every week Tirzepatide (Mounjaro) 2.5 mg/0.5 mL pen injector Discontinued 2.5 MG SUBCUT January 02, 2024 1:00am January 12, 2024 7:59am FreeTextSi.5mg Subcutaneous once weekly; Note: Source Status: sample glenda in office; Provider: Lacy Renteria {10 (nirmatrelvir 150 MG Oral Tablet) / 10 (ritonavir 100 MG Oral Tablet) } Pack [Paxlovid 150 MG /100 MG Dose Pack] (1 source) Start: 04-12-2023 take 1 dose by mouth twice daily Paxlovid (150/100) 10 x 150 MG & 10 x 100MG 1 dose Orally twice a day for 5 days Mar, Not-Taking Problems Active Problems Problem Classification Problem Date Documented Date Episodic/Chronic Administrative/socia l admission (19 sources) Dietary counseling and surveillance; Translations: [Patient encounter status] Onset: 1 Resolved: 2 Episodic Chronic kidney disease (20 sources) Chronic kidney disease stage 3; Translations: [Chronic kidney disease, stage 3 (moderate)] Chronic Chronic kidney disease (1 source) Chronic kidney disease; Translations: [Chronic kidney disease, stage 3a] Onset: 4 Deficiency and other anemia (20 sources) Anemia [...] sources) Long-term current use of insulin; Translations: [residential (current) use of insulin] 01-02-2024 Episodic Other aftercare (7 sources) residential (current) use of insulin; Translations: [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] Onset: 1 Resolved: [...] Chronic Other nutritional; endocrine; and metabolic disorders (3 sources) Body mass index (BMI) 33.0-33.9, adult; Translations: [Body Mass Index 33.0-33.9, adult] Chronic Other nutritional; endocrine; and metabolic disorders (3 sources) Body mass index (BMI) 34.0-34.9, adult; Translations: [Body Mass Index 34.0-34.9, adult] 01-12-2024 Chronic Other nutritional; endocrine; and metabolic disorders (1 source) Overweight in adulthood with body mass index of 25 or more but less than 30; Translations: [Body mass index (BMI) 29.0-29.9, adult] 06-05-2025 Episodic Other screening for suspected conditions (not mental disorders or infectious disease) (9 sources) Patient encounter status; Translations: [Encounter for screening mammogram for malignant neoplasm of breast] Onset: 4 01-02-2024 Episodic Superficial injury; contusion (1 source) Contusion of [...] Proteinuria, unspecified Onset: 05-24-2022 Resolved: 05-24-2022 Episodic Results Test Name Value Interpretation Reference Range Facility Basic Metabolic Panelon 11-0 GFR/1.73 sq M.predicted MDRD (S/P/Bld) [Vol rate/Area] mL/min/{1.73_m2} Normal [facility] Comment on above: Performed By: #### L IPID, CMP, TSH3 wRFLX, URMACRERAT #### [facility] [address] [place] [address] [place] Calcium [Mass/volume] in Ser um or PlasmaOrdered By: Tondra Mapus on 09-01-2024 Calcium [Mass/Vol] 9.0 mg/dL Normal 8.6-10.3 [facility] Comment on above: Result Comment: PERF ORMED BY: [place] [address] PATHOLOGIST ASSISTANT PROFESSOR OF SOCIOLOGY ELE BARRERA M.D. Performed By: #### L IPID, CMP, TSH3 wRFLX, URMACRERAT #### [facility] [address] [place] [address] Calcium [Mass/Vol] Calcium [Mass/volume ] in Serum or Plasma 8.6-10.3 [facility] Carbon dioxide, total [Moles /volume] in Serum or PlasmaOrdered By: Tondra Mapus on 09-01-2024 CO2 [Moles/Vol] 28.4 mmol/L Normal 21.0-31.0 [facility] Comment on above: Performed By: #### L IPIDHARI, TSH3 wRFLX, URMACRERAT #### [address] CO2 [Moles/Vol] Carbon dioxide, tota l [Moles/volume] in Serum or Plasma 21.0-31.0 [facility] Chloride [Moles/volume] in S emmie or PlasmaOrdered By: Tondra Mapus on 09-01-2024 Chloride [Moles/Vol] 104 mmol/L Normal 98-107 [facility] Comment on above: Performed By: #### L IPID, CMP, TSH3 wRFLX, URMACRERAT #### [facility] [address] [place] [address] [place] Chloride [Moles/Vol] Chloride [Moles/vol ume] in Serum or Plasma 98-107 [facility] Creatinine [Mass/volume] in Serum or PlasmaOrdered By: Tondra Mapus on 09-01-2024 Creatinine [Mass/Vol] 1.04 mg/dL Normal 0.60-1.20 [facility] Comment on above: Performed By: #### L HARI STALEY, TSH3 wRFLX, URMACRERAT #### [facility] [address] [id number] [facility] Creatinine [Mass/Vol] Creatinine [Mass/v olume] in Serum or Plasma 0.60-1.20 [facility] Glucose [Mass/volume] in Ser um or PlasmaOrdered By: Jake House on 09-01-2024 Glucose [Mass/Vol] 161 mg/dL High 70-100 [facility] Comment on above: ADA recommended refe rence rangeRandom Glucose Reference Range is dependent on time and content of last meal. Glucose of more than 200 mg/dL in a nonstressed, ambulatory subject supports the diagnosis of Diabetes Mellitus. Result Comment: [place] Glucose Reference Range is dependent on time and content of last meal. Glucose of more than 200 mg/dL in a nonstressed, ambulatory subject supports the diagnosis of Diabetes Mellitus. ADA recommended reference range Performed By: #### L HARI STALEY, TSH3 wRFLX, URMACRERAT #### [facility] [address] Glucose [Mass/Vol] Glucose [Mass/volume ] in Serum or Plasma High 70-100 [facility] Comment on above: ADA recommended refe rence rangeRandom Glucose Reference Range is dependent on time and content of last meal. Glucose of more than 200 mg/dL in a nonstressed, ambulatory subject supports the diagnosis of Diabetes Mellitus. No Panel InformationOrdered By: Jake House on 09-01-2024 Estimated GFR (CKD-EPI) > 60.0 mL/Min [facility] Creatinine Clearance (Chem N/A [facility] Potassium [Moles/volume] in Serum or PlasmaOrdered By: Jake House on 09-01-2024 Potassium [Moles/Vol] 4.9 mmol/L Normal 3.5-5.1 [facility] Comment on above: Performed By: #### L HARI STALEY, TSH3 wRFLX, URMACRERAT #### [facility] [address] [place] [id number] [facility] Potassium [Moles/Vol] Potassium [Moles/v olume] in Serum or Plasma 3.5-5.1 [facility] Serum or plasma anion gap de terminationOrdered By: Jake House on 09-01-2024 Anion gap [Moles/Vol] 10.5 mmol/L Normal 6.0-15.0 [facility] Comment on above: Performed By: #### L IPID, CMP, TSH3 wRFLX, URMACRERAT #### [facility] [address] [id number] [facility] Anion gap [Moles/Vol] Serum or plasma an ion gap determination 6.0-15.0 [facility] Sodium [Moles/volume] in Ser um or PlasmaOrdered By: Jake House on 09-01-2024 Sodium [Moles/Vol] 138 mmol/L Normal 136-145 [facility] Comment on above: Performed By: #### L IPID, HARI, TSH3 wRFLX, URMACRERAT #### [facility] [address] [id number] [facility] Sodium [Moles/Vol] Sodium [Moles/volume ] in Serum or Plasma 136-145 [facility] Urea nitrogen [Mass/volume] in Serum or PlasmaOrdered By: Jake House on 09-01-2024 Urea nitrogen [Mass/Vol] 22 mg/dL Normal -25 [facility] Comment on above: Performed By: #### L IPID, HARI, TSH3 wRFLX, URMACRERAT #### [facility] [address] [id number] [place] Urea nitrogen [Mass/Vol] Urea nitrogen [Mass/volume] in Serum or Plasma 05-24 [facility] HbA1c HPLC (Bld) [Mass fract ion]on 08-09-2024 HbA1c (Bld) [Mass fraction] 7.2 % [facility] No Panel Informationon 08-09 Bedside Glucose 138 [facility] Alanine aminotransferase [En zymatic activity/volume] in Serum or PlasmaOrdered By: Tondra Mapus on 08-04-2024 ALT [Catalytic activity/Vol] 16 U/L Normal 7-52 [facility] Comment on above: Performed By: #### L IPID, CMP, TSH3 wRFLX, URMACRERAT #### [facility] [address] [place] [address] [place] Albumin [Mass/volume] in Ser um or Plasma by Bromocresol green (BCG) dye binding methoOrdered By: Tondra Mapus on 08-04-2024 Albumin BCG dye [Mass/Vol] 3.7 g/dL 3.5-5.7 [facility] Alkaline phosphatase [Enzyma tic activity/volume] in Serum or PlasmaOrdered By: Tondra Mapus on 08-04-2024 ALP [Catalytic activity/Vol] 75 U/L Normal 34-104 [facility] Comment on above: Performed By: #### L IPID, CMP, TSH3 wRFLX, URMACRERAT #### [facility] [address] [place] [address] [place] Aspartate aminotransferase [ Enzymatic activity/volume] in Serum or PlasmaOrdered By: Tondra Mapus on 08-04-2024 AST [Catalytic activity/Vol] 17 U/L Normal 13-39 [facility] Comment on above: Performed By: #### L IPID, CMP, TSH3 wRFLX, URMACRERAT #### [facility] [address] [place] [address] [place] Bilirubin.total [Mass/volume ] in Serum or PlasmaOrdered By: Tondra Mapus on 08-04-2024 Bilirubin [Mass/Vol] 0.6 mg/dL Normal 0.3-1.0 [facility] Comment on above: Performed By: #### L IPID, CMP, TSH3 wRFLX, URMACRERAT #### [facility] [address] [place] [address] [place] Calcium [Mass/volume] in Ser um or PlasmaOrdered By: Tondra Mapus on 08-04-2024 Calcium [Mass/Vol] 9.2 mg/dL Normal 8.6-10.3 [facility] Comment on above: Performed By: #### L IPID, CMP, TSH3 wRFLX, URMACRERAT #### [facility] [address] [place] [address] [place] Carbon dioxide, total [Moles /volume] in Serum or PlasmaOrdered By: Jake House on 08-04-2024 CO2 [Moles/Vol] 28.2 mmol/L Normal 21.0-31.0 [facility] Comment on above: Performed By: #### L IPID, CMP, TSH3 wRFLX, URMACRERAT #### [facility] [address] [place] [address] [place] Chloride [Moles/volume] in S emmie or PlasmaOrdered By: Jake House on 08-04-2024 Chloride [Moles/Vol] 105 mmol/L Normal 98-107 [facility] Comment on above: Performed By: #### L IPID, CMP, TSH3 wRFLX, URMACRERAT #### [facility] [address] [place] [address] [place] Cholesterol [Mass/volume] in Serum or PlasmaOrdered By: Jake House on 08-04-2024 Cholesterol [Mass/Vol] 158 mg/dL Normal 140-200 [facility] Comment on above: Chol less than 200 m g/dl low riskChol 201-239 mg/dl borderline riskChol 240 mg/dl and greater high risk Result Comment: Chol less than 200 mg/dl low risk Chol 201-239 mg/dl borderline risk Chol 240 mg/dl and greater high risk Performed By: #### L IPID, CMP, TSH3 wRFLX, URMACRERAT #### [facility] [address] [id number] [place] Cholesterol in LDL Calc [Mas s/Vol]Ordered By: Jake House on 08-04-2024 Cholesterol in LDL [Mass/Vol] 88 mg/dL 0-100 [facility] Comment on above: LDL ATP III CLASSIFI CATIONLDL less than 100 mg/dL OptimalLDL 100-129 mg/dL Near or above optimalLDL 130-159 mg/dL Borderline highLDL 160-189 mg/dL HighLDL greater than 189 mg/dL Very high Cholesterol in VLDL Calc [Ma ss/Vol]Ordered By: Jake House on 08-04-2024 Cholesterol in VLDL [Mass/Vol] 12 mg/dL [facility] Comprehensive Metabolic Pane pernell 08-04-2024 Albumin [Mass/Vol] 3.7 g/dL Normal 3.5-5.7 [facility] Comment on above: Performed By: #### L IPID, CMP, TSH3 wRFLX, URMACRERAT #### [facility] [address] [place] [address] [place] GFR/1.73 sq M.predicted MDRD (S/P/Bld) [Vol rate/Area] 53.458 mL/min/{1.73_m2} Normal [facility] Comment on above: Performed By: #### L IPID, CMP, TSH3 wRFLX, URMACRERAT #### [facility] [address] [id number] [place] Creatinine [Mass/volume] in Serum or PlasmaOrdered By: Jake House on 08-04-2024 Creatinine [Mass/Vol] 1.20 mg/dL Normal 0.60-1.20 [facility] Comment on above: Performed By: #### L IPID, CMP, TSH3 wRFLX, URMACRERAT #### [facility] [address] [id number] [place] Creatinine [Mass/volume] in UrineOrdered By: Jake House on 08-04-2024 Creatinine (U) [Mass/Vol] 126.00 mg/dL [facility] Comment on above: No reference range e stablished Glucose [Mass/volume] in Ser um or PlasmaOrdered By: Jake House on 08-04-2024 Glucose [Mass/Vol] 138 mg/dL High 70-100 [facility] Comment on above: ADA recommended refe rence rangeRandom Glucose Reference Range is dependent on time and content of last meal. Glucose of more than 200 mg/dL in a nonstressed, ambulatory subject supports the diagnosis of Diabetes Mellitus. Result Comment: [place] om Glucose Reference Range is dependent on time and content of last meal. Glucose of more than 200 mg/dL in a nonstressed, ambulatory subject supports the diagnosis of Diabetes Mellitus. ADA recommended reference range Performed By: #### L IPID, CMP, TSH3 wRFLX, URMACRERAT #### [facility] [address] Lipid Panelon 08-04-2024 LDL Cholesterol,Calculate d 88 mg/dL Normal 0-100 [facility] Comment on above: Result Comment: LDL ATP III CLASSIFICATION LDL less than 100 mg/dL Optimal LDL 100-129 mg/dL Near or above optimal LDL 130-159 mg/dL Borderline high LDL 160-189 mg/dL High LDL greater than 189 mg/dL Very high Performed By: #### L IPID, CMP, TSH3 wRFLX, URMACRERAT #### [facility] [address] Triglyceride w/Reflex 64 mg/dL Normal 0-149 [facility] Comment on above: Result Comment: TRIG ATP III CLASSIFICATION TRIG less than 150 mg/dL Normal TRIG 150-199 mg/dL Borderline high TRIG 200-500 mg/dL High TRIG greater than 500 mg/dL Very high Standard traceable to the Center for Disease Conrtrol and Prevention (CDC) test method. Performed By: #### L IPID, CMP, TSH3 wRFLX, URMACRERAT #### [facility] [address] VLDL CHOLESTEROL 12 mg/dL Normal [facility] Comment on above: Performed By: #### L IPID, CMP, TSH3 wRFLX, URMACRERAT #### [facility] [address] [place] [address] [place] MicroAlb Creat Ratio,Uon Creatinine, Urine (Random) 126.00 mg/dL Normal [facility] Comment on above: Result Comment: No r eference range established Performed By: #### L IPID, CMP, TSH3 wRFLX, URMACRERAT #### [place] [address] [place] Microalbumin/Creatini ne Ratio Not performed Normal 0.0-30.0 [facility] Comment on above: Result Comment: PERF ORMED BY: [place] [address] PATHOLOGIST ASSISTANT PROFESSOR OF SOCIOLOGY ELE BARRERA M.D. Performed By: #### L IPID, CMP, TSH3 wRFLX, URMACRERAT #### [address] Microalbumin [Mass/volume] i n UrineOrdered By: Tondra Mapus on 08-04-2024 Albumin DL <= 20 mg/L (U) [Mass/Vol] mg/dL Normal 0.0-1.8 [facility] Comment on above: Performed By: #### L IPID, CMP, TSH3 wRFLX, URMACRERAT #### [address] No Panel InformationOrdered By: Tondra Mapus on 08-04-2024 Estimated GFR (CKD-EPI) 53.458 mL/Min [facility] Creatinine Clearance (Chem N/A [facility] Potassium [Moles/volume] in Serum or PlasmaOrdered By: Tondra Mapus on 08-04-2024 Potassium [Moles/Vol] 5.0 mmol/L Normal 3.5-5.1 [facility] Comment on above: Performed By: #### L IPID, CMP, TSH3 wRFLX, URMACRERAT #### [address] Protein [Mass/volume] in Ser um or PlasmaOrdered By: Tondra Mapus on 08-04-2024 Protein [Mass/Vol] 6.9 g/dL Normal 6.4-8.9 [facility] Comment on above: Performed By: #### L IPID, CMP, TSH3 wRFLX, URMACRERAT #### [address] Serum globulin measurement b y calculation (mass/volume)Ordered By: Tondra Mapus on 08-04-2024 Globulin (S) [Mass/Vol] 3.2 g/dL Normal [facility] Comment on above: Performed By: #### L IPID, CMP, TSH3 wRFLX, URMACRERAT #### [facility] [address] Serum or plasma albumin/glob ulin mass ratioOrdered By: Jake House on 08-04-2024 Albumin/Globulin [Mass ratio] 1.2 {ratio} [facility] Comment on above: Performed By: #### L IPID, CMP, TSH3 wRFLX, URMACRERAT #### [facility] [address] [place] [address] Serum or plasma anion gap de terminationOrdered By: Jake Houes on 08-04-2024 Anion gap [Moles/Vol] 8.8 mmol/L Normal 6.0-15.0 [facility] Comment on above: Performed By: #### L IPID, CMP, TSH3 wRFLX, URMACRERAT #### [facility] [address] [place] [address] Serum or plasma high density lipoprotein (HDL) cholesterol measurementOrdered By: Jake House on 08-04-2024 Cholesterol in HDL [Mass/Vol] 57 mg/dL Normal 23-92 [facility] Comment on above: HDL CHOL ATP-III CLA SSIFICATION Cardiovascular RiskHDL > or equal to 60 mg/dL LOWHDL < 40 mg/dL HIGH Result Comment: HDL CHOL ATP-III CLASSIFICATION Cardiovascular Risk HDL > or equal to 60 mg/dL LOW HDL < 40 mg/dL HIGH Performed By: #### L IPID, CMP, TSH3 wRFLX, URMACRERAT #### [facility] [address] [place] [address] Serum or plasma total choles terol/high density lipoprotein (HDL) cholesterol mass ratOrdered By: Jake House on 08-04-2024 Cholesterol.total/Cho lesterol in HDL [Mass ratio] 2.8 {ratio} Normal <5.0 [facility] Comment on above: Performed By: #### L IPID, CMP, TSH3 wRFLX, URMACRERAT #### [facility] [address] [place] [address] Sodium [Moles/volume] in Ser um or PlasmaOrdered By: Tondra Mapus on 08-04-2024 Sodium [Moles/Vol] 137 mmol/L Normal 136-145 [facility] Comment on above: Performed By: #### L IPID, CMP, TSH3 wRFLX, URMACRERAT #### [facility] [address] [place] [address] Thyroid Stim Hormone w/Rflxo n 08-04-2024 Thyroid Stim Hormone w/Rflx 0.18 u[iU]/mL Low 0.45-5.33 [facility] Comment on above: Result Comment: PERF ORMED BY: [place] [address] PATHOLOGIST ASSISTANT PROFESSOR OF SOCIOLOGY ELE BARRERA M.D. Performed By: #### L IPID, CMP, TSH3 wRFLX, URMACRERAT #### [address] Thyrotropin [Units/volume] i n Serum or PlasmaOrdered By: Tondra Mapus on 08-04-2024 TSH Qn 0.18 m[IU]/L Low 0.45-5.33 [facility] Thyroxine (T4) free [Mass/vo lume] in Serum or PlasmaOrdered By: Tondra Mapus on 08-04-2024 Free T4 [Mass/Vol] 1.36 ng/dL High 0.61-1.12 [facility] Comment on above: Performed By: #### L IPID, CMP, TSH3 wRFLX, URMACRERAT #### [facility] [address] [place] [address] Triglyceride [Mass/volume] i n Serum or PlasmaOrdered By: Tondra Mapus on 08-04-2024 Triglyceride [Mass/Vol] 64 mg/dL 0-149 [facility] Comment on above: TRIG ATP III CLASSIF ICATIONTRIG less than 150 mg/dL NormalTRIG 150-199 mg/dL Borderline highTRIG 200-500 mg/dL High TRIG greater than 500 mg/dL Very highStandard traceable to the Center for Disease Conrtrol and Prevention (CDC) test method. Urea nitrogen [Mass/volume] in Serum or PlasmaOrdered By: Jake House on 08-04-2024 Urea nitrogen [Mass/Vol] 18 mg/dL Normal 7-25 [facility] Comment on above: Performed By: #### L IPID, CMP, TSH3 wRFLX, URMACRERAT #### [facility] [address] Urine microalbumin/creatinin e mass ratioOrdered By: Jake House on 08-04-2024 Albumin/Creatinine DL <= 20 mg/L (U) [Mass ratio] TNP [facility] Comment on above: Test not performed MM screening mammo BI w/CADo n 02-27-2024 MM screening mammo BI w/CAD [facility] [address] [place] [address] [place] [address] Mammography Report Signed Patient: Alana Nation MR#: [id number] : 1970 Acct:[id number] Age/Sex: 53 / F ADM Date: 02/25/24 Loc: [place] Room: Type: [facility] Attending Dr: Ailyn Willis DO Copies [...] for the next mammogram. Impression dictated by: uYmiko Waddell M.D.02/27/2024 6:23 AM Dictation Location: [facility] Transcribed By: [facility] 02/27/24622 Dictated By: Yumiko Waddell MD 02/27/24618 Signed By: 02/27/24622 Normal [facility] HbA1c HPLC (Bld) [Mass fract ion]on 01-12-2024 HbA1c (Bld) [Mass fraction] 7.7 % [facility] No Panel Informationon 01-11 Bedside Glucose 168 [facility] A1C with Estimated Average G luoerin 10-06-2023 HbA1c (Bld) [Mass fraction] 7.900 % High 4.3-5.6 % [facility] [employer] Other HbA1c (Bld) [Mass fraction] 180 mg/dL [facility] [employer] Other Glucose [Mass/Vol] 180 mg/dL Normal [facility] Comment on above: Order Comment: Reaso n for Exam Type 2 diabetes mellitus with diabetic chronic kidney diseas Result Comment: PERF ORMED BY: [place] [address] PATHOLOGIST ASSISTANT PROFESSOR OF SOCIOLOGY ELE BARRERA M.D. Performed By: #### A 1C [facility] #### [address] Glucose - [place]INGER STICKon Glucose [Mass/Vol] 206 mg/dL [facility] [employer] Other Glucose mean value [Mass/vol ume] in Blood Estimated from glycated hemoglobinOrdered By: Jake House on 10-06-2023 Average glucose Estimated from glycated hemoglobin (Bld) [Mass/Vol] 180 mg/dL [facility] Hemoglobin A1c percentageOrd ered By: Jake House on 10-06-2023 HbA1c (Bld) [Mass fraction] 7.9 % High 4.3-5.6 [facility] Comment on above: Increased risk for d iabetes: 5.7 - 6.4diabetes: >6.4glycemic control for adults with diabetes: <7.0 Order Comment: Reaso n for Exam Type 2 diabetes mellitus with diabetic chronic kidney diseas Result Comment: Incr eased risk for diabetes: 5.7 - 6.4 diabetes: >6.4 glycemic control for adults with diabetes: <7.0 Performed By: #### A 1C WTH eA #### [facility] [address] [place] [address] [place] Alanine aminotransferase [En zymatic activity/volume] in Serum or PlasmaOrdered By: Jake House on 09-26-2023 ALT [Catalytic activity/Vol] 15 U/L Normal 7-52 [facility] Comment on above: Order Comment: Reaso n for Exam Type 2 diabetes mellitus with diabetic chronic kidney diseas Performed By: #### L IPID, CMP, TSH3 wRFLX, URMACRERAT #### [facility] [address] [place] [id number] [place] Albumin [Mass/volume] in Ser um or Plasma by Bromocresol green (BCG) dye binding methoOrdered By: Jake House on 09-26-2023 Albumin BCG dye [Mass/Vol] 4.0 g/dL 3.5-5.7 [facility] Alkaline phosphatase [Enzyma tic activity/volume] in Serum or PlasmaOrdered By: Jake House on 09-26-2023 ALP [Catalytic activity/Vol] 75 U/L Normal 34-104 [facility] Comment on above: Order Comment: Reaso n for Exam Type 2 diabetes mellitus with diabetic chronic kidney diseas Performed By: #### L IPID, CMP, TSH3 wRFLX, URMACRERAT #### [facility] [address] [place] [id number] [place] Antithyroglobulin Abon 09-26 Antithyroglobulin Ab 2.5 High 0.0-0.9 [facility] Comment on above: Result Comment: Thyr oglobulin Antibody measured by [facility] [place] Methodology Performed at: - [facility] [address] [id number] [employer] Sheriff Custody: Hector Finn PhD, Phone: [phone] PERFORMED BY: [place] [address] PATHOLOGIST ASSISTANT PROFESSOR OF SOCIOLOGY ELE BARRERA M.D. Performed By: #### T PO, THYGLOB AB #### [facility] , #### T3F, T4F #### [facility] [address] [place] [address] Aspartate aminotransferase [ Enzymatic activity/volume] in Serum or PlasmaOrdered By: Tondra Lacy on 09-26-2023 AST [Catalytic activity/Vol] 15 U/L Normal 13-39 [facility] Comment on above: Order Comment: Reaso n for Exam Type 2 diabetes mellitus with diabetic chronic kidney diseas Performed By: #### L IPID, CMP, TSH3 wRFLX, URMACRERAT #### [facility] [address] [place] [address] [place] Bilirubin.total [Mass/volume ] in Serum or PlasmaOrdered By: Tondra Peaceus on 09-26-2023 Bilirubin [Mass/Vol] 0.4 mg/dL Normal 0.3-1.0 [facility] Comment on above: Order Comment: Reaso n for Exam Type 2 diabetes mellitus with diabetic chronic kidney diseas Performed By: #### L IPID, CMP, TSH3 wRFLX, URMACRERAT #### [facility] [address] [place] [address] [place] Calcium [Mass/volume] in Ser um or PlasmaOrdered By: Tondra Mapus on 09-26-2023 Calcium [Mass/Vol] 9.2 mg/dL Normal 8.6-10.3 [facility] Comment on above: Order Comment: Reaso n for Exam Type 2 diabetes mellitus with diabetic chronic kidney diseas Performed By: #### L IPID, CMP, TSH3 wRFLX, URMACRERAT #### [facility] [address] [place] [address] [place] Carbon dioxide, total [Moles /volume] in Serum or PlasmaOrdered By: Jake House on 09-26-2023 CO2 [Moles/Vol] 29.3 mmol/L Normal 21.0-31.0 [facility] Comment on above: Order Comment: Reaso n for Exam Type 2 diabetes mellitus with diabetic chronic kidney diseas Performed By: #### L IPID, CMP, TSH3 wRFLX, URMACRERAT #### [facility] [address] [place] [address] [place] Chloride [Moles/volume] in S emmie or PlasmaOrdered By: Jake House on 09-26-2023 Chloride [Moles/Vol] 104 mmol/L Normal 98-107 [facility] Comment on above: Order Comment: Reaso n for Exam Type 2 diabetes mellitus with diabetic chronic kidney diseas Performed By: #### L IPID, CMP, TSH3 wRFLX, URMACRERAT #### [facility] [address] [place] [address] [place] Cholesterol [Mass/volume] in Serum or PlasmaOrdered By: Jake House on 09-26-2023 Cholesterol [Mass/Vol] 180 mg/dL Normal 140-200 [facility] Comment on above: Chol less than 200 m g/dl low riskChol 201-239 mg/dl borderline riskChol 240 mg/dl and greater high risk Order Comment: Reaso n for Exam Type 2 diabetes mellitus with diabetic chronic kidney diseas Result Comment: Chol less than 200 mg/dl low risk Chol 201-239 mg/dl borderline risk Chol 240 mg/dl and greater high risk Performed By: #### L IPID, CMP, TSH3 wRFLX, URMACRERAT #### [facility] [address] [place] [id number] [place] Cholesterol in LDL Calc [Mas s/Vol]Ordered By: Jake House on 09-26-2023 Cholesterol in LDL [Mass/Vol] 96 mg/dL 0-100 [facility] Comment on above: LDL ATP III CLASSIFI CATIONLDL less than 100 mg/dL OptimalLDL 100-129 mg/dL Near or above optimalLDL 130-159 mg/dL Borderline highLDL 160-189 mg/dL HighLDL greater than 189 mg/dL Very high Cholesterol in VLDL Calc [Ma ss/Vol]Ordered By: Jake House on 09-26-2023 Cholesterol in VLDL [Mass/Vol] 15 mg/dL [facility] Comprehensive Metabolic Pane pernell 09-26-2023 Albumin [Mass/Vol] 4.0 g/dL Normal 3.5-5.7 [facility] Comment on above: Order Comment: Reaso n for Exam Type 2 diabetes mellitus with diabetic chronic kidney diseas Performed By: #### L IPID, CMP, TSH3 wRFLX, URMACRERAT #### [facility] [address] [place] [id number] [place] GFR/1.73 sq M.predicted MDRD (S/P/Bld) [Vol rate/Area] mL/min/{1.73_m2} Normal [facility] Comment on above: Order Comment: Reaso n for Exam Type 2 diabetes mellitus with diabetic chronic kidney diseas Performed By: #### L IPID, CMP, TSH3 wRFLX, URMACRERAT #### [facility] [address] [place] [address] [place] Creatinine [Mass/volume] in Serum or PlasmaOrdered By: Tondra Peaceus on 09-26-2023 Creatinine [Mass/Vol] 1.03 mg/dL Normal 0.60-1.20 [facility] Comment on above: Order Comment: Reaso n for Exam Type 2 diabetes mellitus with diabetic chronic kidney diseas Performed By: #### L IPID, CMP, TSH3 wRFLX, URMACRERAT #### [facility] [address] [place] [address] [place] Creatinine [Mass/volume] in UrineOrdered By: Sidneydra Peaceus on 09-26-2023 Creatinine (U) [Mass/Vol] 154.0 mg/dL 11.0-20.0 [facility] Glucose [Mass/volume] in Ser um or PlasmaOrdered By: Tondra Mapus on 09-26-2023 Glucose [Mass/Vol] 214 mg/dL High 70-100 [facility] Comment on above: ADA recommended refe rence rangeRandom Glucose Reference Range is dependent on time and content of last meal. Glucose of more than 200 mg/dL in a nonstressed, ambulatory subject supports the diagnosis of Diabetes Mellitus. Order Comment: Reaso n for Exam Type 2 diabetes mellitus with diabetic chronic kidney diseas Result Comment: [place] om Glucose Reference Range is dependent on time and content of last meal. Glucose of more than 200 mg/dL in a nonstressed, ambulatory subject supports the diagnosis of Diabetes Mellitus. ADA recommended reference range Performed By: #### L IPID, CMP, TSH3 wRFLX, URMACRERAT #### [facility] [address] Lipid Panelon 09-26-2023 LDL Cholesterol,Calculate d 96 mg/dL Normal 0-100 [facility] Comment on above: Order Comment: Reaso n for Exam Type 2 diabetes mellitus with diabetic chronic kidney diseas Result Comment: LDL ATP III CLASSIFICATION LDL less than 100 mg/dL Optimal LDL 100-129 mg/dL Near or above optimal LDL 130-159 mg/dL Borderline high LDL 160-189 mg/dL High LDL greater than 189 mg/dL Very high Performed By: #### L IPID, CMP, TSH3 wRFLX, URMACRERAT #### [facility] [address] Triglyceride w/Reflex 75 mg/dL Normal 0-149 [facility] Comment on above: Order Comment: [...] test method. Performed By: #### L IPID, CMP, TSH3 wRFLX, URMACRERAT #### [facility] [address] VLDL CHOLESTEROL 15 mg/dL Normal [facility] Comment on above: Order Comment: Xochitlo n for Exam Type 2 diabetes mellitus with diabetic chronic kidney diseas Performed By: #### L IPID, CMP, TSH3 wRFLX, URMACRERAT #### [facility] [address] [place] [address] [place] MicroAlb Creat Ratio,Uon Creatinine, Urine (Random) 154.0 mg/dL High 11.0-20.0 [facility] Comment on above: Order Comment: Reaso n for Exam Type 2 diabetes mellitus with diabetic chronic kidney diseas Performed By: #### L IPID, CMP, TSH3 wRFLX, URMACRERAT #### [facility] [address] [place] [address] Microalbumin/Creatini ne Ratio Not performed Normal 0.0-30.0 [facility] Comment on above: Order Comment: Reaso n for Exam Type 2 diabetes mellitus with diabetic chronic kidney diseas Result Comment: PERF ORMED BY: [place] [address] PATHOLOGIST ASSISTANT PROFESSOR OF SOCIOLOGY ELE BARRERA M.D. Performed By: #### L IPID, CMP, TSH3 wRFLX, URMACRERAT #### [facility] [address] [place] [address] Microalbumin [Mass/volume] i n UrineOrdered By: Tondra Peaceus on 09-26-2023 Albumin DL <= 20 mg/L (U) [Mass/Vol] mg/dL Normal 0.0-1.8 [facility] Comment on above: Order Comment: Reaso n for Exam Type 2 diabetes mellitus with diabetic chronic kidney diseas Performed By: #### L IPID, CMP, TSH3 wRFLX, URMACRERAT #### [facility] [address] [place] [address] No Panel InformationOrdered By: Tondra Mapus on 09-26-2023 Estimated GFR (CKD-EPI) > 60.0 mL/Min [facility] Creatinine Clearance (Chem N/A [facility] Potassium [Moles/volume] in Serum or PlasmaOrdered By: Tondra Mapus on 09-26-2023 Potassium [Moles/Vol] 4.9 mmol/L Normal 3.5-5.1 [facility] Comment on above: Order Comment: Reaso n for Exam Type 2 diabetes mellitus with diabetic chronic kidney diseas Performed By: #### L IPID, CMP, TSH3 wRFLX, URMACRERAT #### [facility] [address] Protein [Mass/volume] in Ser um or PlasmaOrdered By: Tondra Mapus on 09-26-2023 Protein [Mass/Vol] 6.9 g/dL Normal 6.4-8.9 [facility] Comment on above: Order Comment: Reaso n for Exam Type 2 diabetes mellitus with diabetic chronic kidney diseas Performed By: #### L IPID, CMP, TSH3 wRFLX, URMACRERAT #### [facility] [address] Serum globulin measurement b y calculation (mass/volume)Ordered By: Tondra Mapus on 09-26-2023 Globulin (S) [Mass/Vol] 2.9 g/dL [facility] Comment on above: Order Comment: Reaso n for Exam Type 2 diabetes mellitus with diabetic chronic kidney diseas Performed By: #### L IPID, CMP, TSH3 wRFLX, URMACRERAT #### [facility] [address] Serum or plasma albumin/glob ulin mass ratioOrdered By: Tondra Mapus on 09-26-2023 Albumin/Globulin [Mass ratio] 1.4 {ratio} [facility] Comment on above: Order Comment: Reaso n for Exam Type 2 diabetes mellitus with diabetic chronic kidney diseas Performed By: #### L IPID, CMP, TSH3 wRFLX, URMACRERAT #### [facility] [address] [place] [address] [place] Serum or plasma anion gap de terminationOrdered By: Tondra Mapus on 09-26-2023 Anion gap [Moles/Vol] 9.6 mmol/L Normal 6.0-15.0 [facility] Comment on above: Order Comment: Reaso n for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 Body weight 104.32 kg [facility] 01-12-2024 07:52-0400 Diastolic blood pressure 60 mm[Hg] [facility] 01-12-2024 07:52-0400 Heart rate 79 /min [facility] 01-12-2024 07:52-0400 Respiratory rate 18 /min [facility] 01-12-2024 07:52-0400 SaO2% (BldA) [Mass fraction] 98 % [facility] 01-12-2024 07:52-0400 Systolic blood pressure 117 mm[Hg] [facility] 01-02-2024 09:04-0500 Body height 173.99 cm [facility] 01-02-2024 09:04-0500 Body mass index (BMI) [Ratio] 34.1 kg/m2 [facility] 01-02-2024 09:04-0500 Body weight 103.41 kg [facility] 01-02-2024 09:04-0500 Diastolic blood pressure 70 mm[Hg] [facility] 01-02-2024 09:04-0500 Heart rate 83 /min [facility] 01-02-2024 09:04-0500 Respiratory rate 18 /min [facility] 01-02-2024 09:04-0500 SaO2% (BldA) [Mass fraction] 97 % [facility] 01-02-2024 09:04-0500 Systolic blood pressure 136 mm[Hg] [facility] 10-06-2023 07:45-0500 Body height 173.99 cm Jake House Other [facility] 10-06-2023 07:45-0500 Body mass index (BMI) [Ratio] 32.53 kg/m2 Tondra Mapus Other [employer] Other 10-06-2023 07:45-0500 Body weight 98.48 kg Tondra Mapus Other [employer] Other 10-06-2023 07:45-0500 Body weight 98.47 kg DO Ailyn Willis Work Phone: [facility] 10-06-2023 07:45-0500 Diastolic blood pressure 77 mm[Hg] Tondra Mapus Other [facility] 10-06-2023 07:45-0500 Respiratory rate 18 /min Tondra Mapus Other [employer] Other 10-06-2023 07:45-0500 SaO2% (BldA) [Mass fraction] 98 % Tondra Mapus Other [employer] Other 10-06-2023 07:45-0500 Systolic blood pressure 123 mm[Hg] Tondra Mapus Other [facility] 06-29-2023 15:15-0400 Body height 173.99 cm Tondra Mapus Other [employer] Other 06-29-2023 15:15-0400 Body mass index (BMI) [Ratio] 32.69 kg/m2 Tondra Mapus Other [employer] Other 06-29-2023 15:15-0400 Body weight 98.98 kg Tondra Mapus Other [facility] Other 06-29-2023 15:15-0400 Diastolic blood pressure 81 mm[Hg] Tondra Mapus Other [facility] Other 06-29-2023 15:15-0400 Respiratory rate 18 /min Tondra Mapus Other [employer] Other 06-29-2023 15:15-0400 SaO2% (BldA) [Mass fraction] 99 % Tondra Mapus Other [employer] Other 06-29-2023 15:15-0400 Systolic blood pressure 133 mm[Hg] Tondra Mapus Other [employer] Other 05-01-2023 11:20-0400 Body height 173.99 cm Paty Guaman Other [employer] Other 05-01-2023 11:20-0400 Body mass index (BMI) [Ratio] 32.21 kg/m2 Paty Guaman Other [facility] Other 05-01-2023 11:20-0400 Body temperature 97.4 [degF] Paty Guaman Other [facility] Other 05-01-2023 11:20-0400 Body weight 97.52 kg Paty Guaman Other [facility] Other 05-01-2023 11:20-0400 Respiratory rate 18 /min Paty Guaman Other [facility] Other 05-01-2023 11:20-0400 SaO2% (BldA) [Mass fraction] 98 % Paty Guaman Other [employer] Other 12-15-2022 08:45-0500 Body height 173.99 cm Tondra Mapus Other [employer] Other 12-15-2022 08:45-0500 Body mass index (BMI) [Ratio] 33.5 kg/m2 Tondra Mapus Other [facility] Other 12-15-2022 08:45-0500 Body temperature 98.2 [degF] Tondra Mapus Other [employer] Other 12-15-2022 08:45-0500 Body weight 101.42 kg Tondra Mapus Other [employer] Other 12-15-2022 08:45-0500 Diastolic blood pressure 76 mm[Hg] Tondra Mapus Other [employer] Other 12-15-2022 08:45-0500 Respiratory rate 18 /min Tondra Mapus Other [employer] Other 12-15-2022 08:45-0500 SaO2% (BldA) [Mass fraction] 99 % Tondra Mapus Other [employer] Other 12-15-2022 08:45-0500 Systolic blood pressure 119 mm[Hg] Tondra Mapus Other [facility] Other 07-07-2022 18:00-0400 Body height 173.99 cm Marlin Ivan Other [employer] Other 07-07-2022 18:00-0400 Body mass index (BMI) [Ratio] 31.31 kg/m2 Marlin Ivan Other [facility] Other 07-07-2022 18:00-0400 Body temperature 97 [degF] Marlin Ivan Other [employer] Other 07-07-2022 18:00-0400 Body weight 94.8 kg Marlin Ivan Other [facility] Other 07-07-2022 18:00-0400 Diastolic blood pressure 73 mm[Hg] Marlin Ivan Other [facility] Other 07-07-2022 18:00-0400 Respiratory rate 16 /min Marlin Ivan Other [facility] Other 07-07-2022 18:00-0400 SaO2% (BldA) [Mass fraction] 96 % Marlin Ivan Other [facility] Other 07-07-2022 18:00-0400 Systolic blood pressure 142 mm[Hg] Marlin Ivan Other [facility] Other 05-24-2022 09:45-0400 Body height 173.99 cm Tona Peaceus Other [facility] Other 05-24-2022 09:45-0400 Body mass index (BMI) [Ratio] 32.93 kg/m2 Tondra Mapus Other [facility] Other 05-24-2022 09:45-0400 Body weight 99.7 kg Tondra Mapus Other [facility] Other 05-24-2022 09:45-0400 Diastolic blood pressure 76 mm[Hg] Tondra Mapus Other [facility] Other 05-24-2022 09:45-0400 Respiratory rate 18 /min Tondra Mapus Other [employer] Other 05-24-2022 09:45-0400 SaO2% (BldA) [Mass fraction] 99 % Tondra Mapus Other [facility] Other 05-24-2022 09:45-0400 Systolic blood pressure 116 mm[Hg] Tondra Mapus Other [facility] Other 02-01-2022 11:15-0400 Body height 173.99 cm Tondra Mapus Other [facility] Other 02-01-2022 11:15-0400 Body mass index (BMI) [Ratio] 32.21 kg/m2 Tondra Mapus Other [facility] Other 02-01-2022 11:15-0400 Body weight 97.52 kg Tondra Mapus Other [facility] Other 02-01-2022 11:15-0400 Diastolic blood pressure 73 mm[Hg] Tondra Mapus Other [facility] Other 02-01-2022 11:15-0400 Respiratory rate 16 /min Tondra Mapus Other [facility] Other 02-01-2022 11:15-0400 SaO2% (BldA) [Mass fraction] 95 % Tondra Mapus Other [facility] Other 02-01-2022 11:15-0400 Systolic blood pressure 127 mm[Hg] Tondra Mapus Other [facility] Other 10-14-2021 16:45-0500 Body height 173.99 cm Tondra Mapus Other [facility] Other 10-14-2021 16:45-0500 Body mass index (BMI) [Ratio] 32.51 kg/m2 Tondra Mapus Other [facility] Other 10-14-2021 16:45-0500 Body weight 98.43 kg Tondra Mapus Other [facility] Other 10-14-2021 16:45-0500 Diastolic blood pressure 65 mm[Hg] Tondra Mapus Other [facility] Other 10-14-2021 16:45-0500 Respiratory rate 16 /min Tondra Mapus Other [facility] Other 10-14-2021 16:45-0500 SaO2% (BldA) [Mass fraction] 99 % Tondra Mapus Other [facility] Other 10-14-2021 16:45-0500 Systolic blood pressure 137 mm[Hg] Tondra Mapus Other [employer] Other Encounters Encounter Date Encounter Type Care Provider Facility Start: 06-05-2025 End: 06-05-2025 ambulatory Ailyn Willis DO Work Phone: [facility] Work Phone: Start: 06-05-2025 End: 06-05-2025 Patient encounter procedure Tondra K Mapus [employer]FRA[employer]CTURE ANALYST-C [facility] Work Phone: Start: 11-13-2024 End: 11-13-2024 ambulatory Ailyn Willis DO Work Phone: [facility] Work Phone: Start: 11-13-2024 End: 11-13-2024 Patient encounter procedure Ailyn Willis DO Work Phone: [facility] Work Phone: Start: 09-01-2024 End: 09-01-2024 Patient encounter procedure DO Ailyn Willis Work Phone: [facility] [place] Work Phone: Start: 09-01-2024 End: 09-01-2024 ambulatory DO Ailyn Willis Work Phone: [facility] Work Phone: Start: 08-09-2024 End: 08-09-2024 ambulatory DO Ailyn Willis Work Phone: [facility] Work Phone: Start: 08-09-2024 End: 08-09-2024 Patient encounter procedure DO Ailyn Willis Work Phone: [facility] Work Phone: Start: 08-07-2024 Non-patient / Non-visit DO Ailyn Willis Work Phone: [facility] Work Phone: Start: 08-04-2024 End: 08-04-2024 Patient encounter procedure DO Ailyn Willis Work Phone: [facility] [place] Work Phone: Start: 08-04-2024 End: 08-04-2024 ambulatory DO Ailyn Willis Work Phone: [facility] Work Phone: Start: 05-01-2024 End: 05-01-2024 ambulatory DO Ailyn Willis Work Phone: [facility] Work Phone: Start: 05-01-2024 End: 05-01-2024 Patient encounter procedure DO Ailyn Willis Work Phone: [facility] Phys[facility] Work Phone: Start: 02-25-2024 End: 02-25-2024 Patient encounter procedure DO Ailyn Willis Work Phone: [facility] Work Phone: Start: 02-25-2024 End: 02-25-2024 ambulatory Ailyn Willis Facility:[facility] Start: 01-12-2024 End: 01-12-2024 ambulatory [facility] Work Phone: Start: 01-12-2024 End: 01-12-2024 Patient encounter procedure [facility] Phys[facility] Work Phone: Start: 01-02-2024 Physical examination [facility] Start: 01-02-2024 End: 01-02-2024 Encounter for general adult medical examination without abnormal findings [facility] Start: 01-02-2024 End: 01-02-2024 Patient encounter procedure [facility] Phys[facility] [place] Work Phone: Start: 10-06-2023 (DM) Diabetes Tondra Mapus [facility] Start: 10-06-2023 Telephone encounter Tondra Mapus [facility] Start: 10-06-2023 End: 10-06-2023 Discharged Recurring DO Ailyn Willis Work Phone: [facility] Work Phone: Start: 10-06-2023 End: 10-06-2023 ambulatory DO Ailyn Willis Work Phone: [employer] Other Start: 10-06-2023 End: 10-06-2023 Patient encounter procedure DO Ailyn Willis Work Phone: [facility]ician [facility] Work Phone: Start: 10-04-2023 End: 10-04-2023 ambulatory Navya China Other [employer] Other Start: 10-04-2023 Encounter by blaine Atkinson [facility] Start: 09-26-2023 Telephone encounter Tondra Mapus [facility] Start: 09-26-2023 End: 09-26-2023 ambulatory Ailyn Willis [facility] [employer] Other Start: 09-26-2023 End: 09-26-2023 Patient encounter procedure DO iAlyn Willis Work Phone: [facility] [place] Work Phone: Start: 07-12-2023 End: 07-12-2023 ambulatory Tondra Mapus Other [employer] Other Start: 07-12-2023 Telephone encounter Tondra Mapus [facility] Start: 06-29-2023 (DM) Diabetes Tondra Mapus [facility] Start: 06-29-2023 End: 06-29-2023 ambulatory Tondra Mapus Other [employer] Other Start: 06-13-2023 End: 06-13-2023 ambulatory Hernesto Maldonado [place] Facility:[facility] Start: 05-01-2023 End: 05-01-2023 ambulatory Paty Guaman Other [employer] Other Start: 05-01-2023 Office outpatient visit 15 minutes Paty Guaman [facility] Start: 03-14-2023 End: 03-14-2023 ambulatory DO Ailyn Willis Work Phone: [facility] Work Phone: Start: 03-14-2023 End: 03-14-2023 Patient encounter procedure DO Ailyn Willis Work Phone: [facility] [place] Work Phone: Start: 02-14-2023 Telephone encounter Tondra Lacy [facility] Endocr[facility] Start: 02-14-2023 End: 02-14-2023 ambulatory DO Ailyn Willis Work Phone: [facility] Work Phone: Start: 02-14-2023 End: 02-14-2023 Patient encounter procedure DO Ailyn Willis Work Phone: [facility] [place] Work Phone: Start: 01-20-2023 End: 01-20-2023 ambulatory Tondra Mapus Other [employer] Other Start: 01-20-2023 Telephone encounter Tondra Peaceus [facility] Start: 12-15-2022 (PUMP/CGM) Pump / Sensor Tondra Mapus [facility] Start: 12-15-2022 End: 12-15-2022 ambulatory Tondra Mapus Other [employer] Other Start: 12-15-2022 Registered Recurring DO Ailyn Willis Work Phone: [facility] Work Phone: Start: 12-13-2022 End: 12-13-2022 ambulatory DO Ailyn Willis Work Phone: [facility] Work Phone: Start: 12-13-2022 End: 12-13-2022 Patient encounter procedure DO Ailyn Willis Work Phone: [facility] [place] Work Phone: Start: 08-31-2022 End: 08-31-2022 ambulatory Tondra Mapus Other [employer] Other Start: 08-31-2022 Telephone encounter Tondra Mapus [facility] Start: 07-12-2022 End: 07-12-2022 ambulatory Tondra Mapus Other [employer] Other Start: 07-12-2022 Telephone encounter Tondra Mapus [facility] Start: 07-07-2022 End: 07-07-2022 ambulatory Tondra Mapus Other [employer] Other Start: 07-07-2022 Office outpatient visit 15 minutes Marlin Ivan [facility] Start: 07-07-2022 Telephone encounter Tondra Mapus [facility] Start: 07-06-2022 End: 07-06-2022 ambulatory Tondra Mapus Other [employer] Other Start: 07-06-2022 Telephone encounter Tondra Mapus [facility] Start: 07-01-2022 End: 07-01-2022 ambulatory Ailyn Willis Other [employer] Other Start: 07-01-2022 Telephone encounter Ailyn Willis [facility] [place] Start: 06-29-2022 End: 06-29-2022 ambulatory Tondra Mapus Other [employer] Other Start: 06-29-2022 Telephone encounter Tondra Mapus [facility] Start: 05-24-2022 (PUMP/CGM) Pump / Sensor Tondra Mapus [facility] Start: 05-24-2022 End: 05-24-2022 ambulatory Tondra Mapus Other [employer] Other Start: 04-05-2022 End: 04-05-2022 ambulatory Tondra Mapus Other [employer] Other Start: 04-05-2022 Telephone encounter Tondra Mapus [facility] Start: 02-01-2022 (PUMP/CGM) Pump / Sensor Tondra Mapus [facility] Start: 02-01-2022 End: 02-01-2022 ambulatory Tondra Mapus Other [employer] Other Start: 01-15-2022 End: 01-15-2022 ambulatory Ailyn Willis Other [employer] Other Start: 01-15-2022 Telephone encounter Ailyn Willis [facility] Start: 12-28-2021 End: 12-28-2021 ambulatory Tondra Mapus Other [employer] Other Start: 12-28-2021 Telephone encounter Tondra Mapus [facility] Start: 12-24-2021 End: 12-25-2021 ambulatory [facility] Start: 12-24-2021 End: 12-24-2021 Subsequent hospital visit by physician Jocy Damon PT Work Phone: [facility] Comment on above: Arrived Start: 12-23-2021 End: 12-24-2021 ambulatory [facility]AD[facility] Start: 12-17-2021 End: 12-18-2021 ambulatory MARLIN S ARIADNA [facility] Start: 12-15-2021 End: 12-16-2021 ambulatory MARLIN S ARIADNA [facility] Start: 12-14-2021 End: 12-14-2021 ambulatory Ailyn Willis Other [employer] Other Start: 12-14-2021 Telephone encounter Ailyn Willis [facility] Start: 12-09-2021 End: 12-10-2021 ambulatory [facility] Start: 12-09-2021 End: 12-09-2021 Subsequent hospital visit by physician Aidee Middleton [facility] Comment on above: Arrived Start: 12-07-2021 End: 12-08-2021 ambulatory [facility] Start: 2021 End: 12-03-2021 ambulatory [facility] Start: 2021 End: 2021 Subsequent hospital visit by physician Jocy Damon PT Work Phone: [facility] Comment on above: Arrived Start: 10-28-2021 End: 10-31-2021 ambulatory KIANA MCKINNON [facility] Start: 10-14-2021 (PUMP/CGM) Pump / Sensor Tondra Mapus [facility] Start: 10-14-2021 End: 10-14-2021 ambulatory Tondra Mapus Other [facility] Other Start: 01-02-2020 Registered Recurring [facility] Start: 12-25-2018 End: 12-25-2018 Emergency department patient visit Ailyn Willis -Emergency Room Procedures Date Procedure Procedure Detail Performing Clinician Start: 02-25-2024 Screening mammograph y of bilateral breasts DO Ailyn Willis Work Phone: Start: 03-14-2023 US scan of thyroid DO Edu Willis Work Phone: Plan of Treatment Date Care Activity Detail Author Start: 05-15-2024 DTaP/Tdap/Td vaccine (2 - Td or Tdap) DTaP/Tdap/Td vaccine (2 - Td or Tdap) [place] Start: 12-17-2021 End: 12-17-2021 Patient encounter procedure 12/17/2021 Appointment Physical Therapy Jocy Damon, PT [address] [place] [address] [facility] Start: 12-15-2021 End: 12-15-2021 Patient encounter procedure 12/15/2021 Appointment Physical Therapy Jocy Damon, PT [address] [place] [address] [facility] Start: 12-09-2021 End: 12-09-2021 Patient encounter procedure 12/09/2021 Appointment Physical Therapy Aidee Middleton [facility] Start: 12-07-2021 End: 12-07-2021 Patient encounter procedure 12/07/2021 Appointment Physical Therapy Jocy Damon, PT [address] [place] [address] [facility] Start: 2018 Screening for malignant neoplasm of breast Breast cancer screen [facility] Start: 2018 Shingles Vaccine (1 of 2) Shingles Vaccine (1 of 2) [facility] Start: 2013 Screening for malignant neoplasm of colon [facility] Start: 2008 Lipid panel Lipid screen [facility] [facility] Start: [facility] Screening for malignant neoplasm of cervix [facility] Start: 1989 Screening for malignant neoplasm of cervix Pap smear [facility] Start: 1983 HIV screening HIV screen [facility] Start: 1980 Depression Screen Depression Screen [facility] Start: 1970 Hepatitis C screening Hepatitis C screen [facility] MG Breast - bilatera l Screening [facility] Patient Education Low blood suga r in people with diabetes Foot Care for Diabetics [facility] Work Phone: Thyroperoxidase Ab [Units/volume] in Serum or Plasma [facility] Thyrotropin receptor Ab [Units/volume] in Serum [facility] Immunizations Immunization Date Immunization Notes Care Provider Fa cility 08-25-2021 influenza, seasonal, injectable Tondra Mapus Other [facility] 11-07-2020 COVID-19 Vaccine Pfi zer - Documentation Purposes Only Jake House Other [facility] Payers Date Payer Category Payer Unknown [id number] 2021 Unknown [id number] 2018 Self-pay [id number] 2015 Unknown [id number] 2. [id number] 2015 Private Health Insurance [id number] 1968 Unknown [id number] 2.16.8 [id number] 1968 Unknown [id number] 2.16.8 [id number] 1968 Unknown [id number] 2.16.8 [id number] 1968 Unknown [id number] 2.16.8 [id number] 1968 Unknown [id number] 2.16.8 40.1.437148.3.579.2.174 1968 Unknown [id number] 2.16.8 [id number] 1968 Unknown [id number] 2.16.8 [id number] Unknown [id number] Unknown [id number] Unknown [id number] 2.16.8 [id number] Unknown [id number] 2.16.8 [id number] Unknown [id number] 2.16.8 40.1.777906.3.579.2.531 Unknown [id number] 2.16.8 [id number] Unknown [id number] 2.16.8 [id number] Social History Date Type Detail Facility Tobacco smoking status [facility] Unknown if ever smoked [facility] Start: 1970 Sex Assigned At Female F [facility] Start: 12-25-2018 End: 01-12-2024 Tobacco smoking status CTIS Ex-smoker (finding) [facility] Tobacco smoking status [facility] Tobacco smoking consumption unknown [employer] Phone: Start: 1970 Sex Assigned At Not on file M [employer] Phone: Sex Assigned At Sex Assigned At Bir th [facility] Other Start: 11-13-2024 Sex Female (finding) [facility] Medical Equipment Procedure Code Equipment Code Equipment [...] 7.9% 2. Blood glucose levels according to Poachableipod 5/dexcom g6 cgm download 09/23/2023-10/06: Avg glucose [...] pressure material was published on arb Sep, residential (current) use of insulin (ICD-10 - Z79.4) [...] last visit, continue with weight loss efforts [facility] Other 08-30-2023 Evaluation note* Encounter Date Diagnosis [...] pressure material was published on arb May, residential (current) use of insulin (ICD-10 - Z79.4) [...] last visit, continue with weight loss efforts [facility] Other [id number] Note [id number]#1.00[facility]08-15-2023 [id number]#1.00[facility] 06-13-2023 NoteProcedure: Release of trigger finger left ring Pre Op Diagnosis: Trigger finger left ring Post Op Diagnosis: Same Surgeon: Dr. Atul Mckenzie, DO Anesthesia: Local Indication for Surgery: Painful [...] [Verified on: 06/13/2023 14:15 EDT] Hernesto Mckenzie [facility]08-14-2023 [facility] SURGERY Clinical Discharge Summary PERSON INFORMATION Name VERONICA NATION Age 52 Years 1970 Sex FEMALE Language Tamazight PCP AILYN WILLIS Marital Status Phone Med Service Ambulatory Surgery Acct# Arrival 06/13/2023 10:55:49 Visit Reason SURGERY-LEFT RING TRIGGER FINGER RELEASE Acuity LOS 006 01:18 Address: [address] [place] [address] Comment: PROVIDER INFORMATION VITALS INFORMATION Vital Sign [...] Follow up: With: Address: When: STEFANY MARTINEZ [address] [place] [address], [address] [place] [address] Business (1) 06/20/2023 9:15 AM DIAGNOSIS Trigger finger, left ring finger Comment: PHYS DO (more content not included)...[id number]* Encounter Date Diagnosis Assessment Notes [...] follow up with PCP if new/worsening symptoms [facility] Other 04-17-2023 Evaluation note* Encounter Date Diagnosis Assessment Notes Treatment Notes Treatment Clinical Notes Jan, Hypothyroidism (ICD-10 - E03.9) [facility] Other 02-15-2023 Evaluation note* Encounter Date Diagnosis [...] pressure material was published on arb Dec, 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 (ICD-10 - Z79.4) [...] 110/110 changed 110/120, 8pm 120/140 changed 110/140 15 Dec, 2022 Hypoglycemia (ICD-10 - E16.2) Low blood glucose and diabetes material was published [facility] Other 11-01-2022 Evaluation note* Encounter Date Diagnosis Assessment Notes Treatment Notes Treatment Clinical Notes Aug, Hypothyroidism (ICD-10 - E03.9) [facility] Other 09-07-2022 Evaluation note* Encounter Date Diagnosis Assessment Notes Treatment Notes Treatment Clinical Notes Jul, Contact dermatitis, unspecified contact dermatitis type, unspecified trigger (ICD-10 - L25.9) Drink plenty fluids, get plenty of rest. Continue home medications as prescribed. Take the prednisone as prescribed until gone. You may stop the prednisone if your blood sugars go too high. Apply orrp-mee-joeqyyi antibiotic ointment to the rash 2-3 times a day. Follow-up with your family physician if no improvement in 2 to 3 days. Jul, Other Contact dermati tis home care material was printed [facility] Other 08-30-2022 Evaluation note* Encounter Date Diagnosis Assessment Notes Treatment Notes Treatment Clinical Notes May, Hypothyroid (ICD-10 - E03.9) [facility] Other 07-25-2022 Evaluation note* Encounter Date Diagnosis [...] 7.0% 2. 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 [facility] Evaluation Date: 2021 [...] for fracture. 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 She notes continued lumbar pain along with right lateral hip pain. She originally experienced radaiting pain to knee howeve this has decreased/resolved. 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 receiving assistant goal 1: Decrease subjective lumbar/right hip pain to < 3/10 with work activities of standing/walking shipping and receiving assistant goal 2: Trunk and right hip mobility without discomfort shipping and receiving assistant goal 3: Complete lifting from knee to waist up to 30# Patient's Goal: Get rid of pain and return to activity Timed Code Treatment Minutes: 0 Minutes Total Treatment Time: 50 Time In: 0950 Time Out: 1040 JOCY DAMON PT Date: 2021 documented [facility] this [facility] Work Phone: 1(190) 319-853512-15-2021 Evaluation note* Encounter Date Diagnosis Assessment Notes [...] 6.6% 2. Blood glucose levels according to Prevently 2 cgm download 10/01/2021-10/14/20 21: Avg glucose [...] medication issues. 6. Prescriptions: Sent levothyroxine to [facility]. Sep, Hyperlipidemia (ICD-10 - E78.5) Managing your cholesterol material was published 06/20 LDL 87 at goal, on statin Sep, HTN (hypertension) (ICD-10 - I10) Managing high blood pressure material was published on arb Sep, residential (current) use of insulin (ICD-10 - Z79.4) [...] last visit, continue with weight loss efforts [facility] [employer] Other [facility] complaint+Reason for visit Narrative* Chief Complaint Screening METER Reason for Visit BMI 34.0-34.9,adult Dietary counseling and surveillance Hyperlipidemia LDL goal <100 Hypertension Hypothyroidism Insulin pump in place Type 2 diabetes mellitus [facility] Work Phone: Evaluation noteNo [facility] [employer] Other Evaluation noteNo assessment information available [facility] Work Phone: evaluation note* Diagnosis Onset Date Resolution Status Encounter for screening mamm ogram for malignant neoplasm of breast acute Well adult exam acute BMI 34.0-34.9,adult acute Dietary counseling and surveillance acute Hyperlipidemia LDL goal <100 acute Hypertension acute Hypothyroidism acute Insulin pump in place acute Type 2 diabetes mellitus acu [facility] Work Phone: evaluation note* Diagnosis Onset Date Resolution Status BMI 34.0-34.9,adult acute Dietary counseling and surveillance acute Hyperlipidemia LDL goal <100 acute Hypertension acute Hypothyroidism acute Insulin pump in place acute Type 2 diabetes mellitus [facility] Work Phone: evaluation note* Diagnosis Onset Date Resolution Status BMI 33.0-33.9,adult acute Dietary counseling and surveillance acute Hyperlipidemia LDL goal <100 acute Hypertension acute Hypothyroidism acute Insulin pump in place acute Type 2 diabetes [facility] Work Phone: evaluation note* Diagnosis Onset Date Resolution Status Admit Date BMI 33.0-33.9,adult acute Janua ry 2024 7:23am Dietary counseling and surveillance acute November 13 7:23am Hyperlipidemia LDL goal <100 acute November 13, 2024 7:23am Hypertension acute October 7:23am Hypothyroidism acute November 132024 7:23am Insulin pump in place acute Nolberto uary 2024 7:23am Type 2 diabetes mellitus acute November 13, 2024 7:23am [facility] Work Phone: evaluation note* Diagnosis Onset Date Resolution Status Admit Date Dietary counseling and surveillance acute June 05, 2025 7:25am Hyperlipidemia LDL goal <100 acute June 05, 2025 7:25am Hypertension acute June 05, 2025 7:25am Hypothyroidism acute May 7:25am Insulin pump titration acute Au 2024 7:25am Type 2 diabetes mellitus acute June 05, 2025 7:25am BMI 30.0-30.9,adult inactive Augus t 2024 7:25am [facility] Work Phone: History general Narrative - Reported* Type Description Date Medical History DM2 1995 Medical History hypothyroidism 1995 Medical History Lt. shoulder adhesive capsulitis Medical History menopause Medical History Back Injury - Sciati c damage - work related Dr. [place] Medical History HLP Medical History Fx'd Right [...] History as above Hospitalization History CHILD X'2 [facility] Other History general Narrative - Reported* Type Description Date Medical History DM2 1995 Medical History hypothyroidism 1995 Medical History Lt. shoulder adhesive capsulitis Medical History menopause Medical History Back Injury - Sciati c damage - work related Dr. [place] Medical History HLP Medical History Fx'd Right [...] History as above Hospitalization History CHILD X'2 [facility] Other Reason for referral (narrative)No reason for referral [facility] Work Phone: Assessments No Assessments Information AvailableNo Assessments Information Available Advance Directives Advance Directive Response Recorded Date/ Time Advance [...] pump in place Type 2 diabetes mellitus Chief Complaint e11.9 z79.4 e78.5 Chief Complaint e11.9 z79.4 e78.5 3 month f/u-METER Reason for Visit BMI 34.0-34.9,adult Dietary counseling and surveillance Hyperlipidemia LDL goal <100 Hypertension Hypothyroidism Insulin pump in place Type 2 diabetes mellitus Chief Complaint e11.9 z79.4 e78.5 3 month f/u-METER e11.22 n18.31 z79.4 Reason for Visit BMI 33.0-33.9,adult Dietary counseling and surveillance Hyperlipidemia LDL goal <100 Hypertension Hypothyroidism Insulin pump in place Type 2 diabetes mellitus Chief Complaint Admit Date e11.22 n18.31 z79.4 September 01, 2024 8 :54am 3 month f/u / omnipod November 13, 2024 7:23am Reason for Visit Admit Date BMI 33.0-33.9,adult November 13, 2024 7 :23am Dietary counseling and surveillance Homer [email or web address] 7:23am Hyperlipidemia LDL goal <100 October 7:23am Hypertension November 13, 2024 7 :23am Hypothyroidism November 13, 2024 7 :23am Insulin pump in place November 13, 2024 7:23am Type 2 diabetes mellitus November 13, 7:23am Chief Complaint Admit Date 3 month meter on phone June 05, 2025 7:25am Reason for Visit Admit Date Dietary counseling and surveillance Augu 2024 7:25am Hyperlipidemia LDL goal <100 June 05, 2025 7:25am Hypertension June 05, 2025 7:2 5am Hypothyroidism June 05, 2025 7:2 5am Insulin pump titration June 05, 2025 7:25am Type 2 diabetes mellitus June 05 7:25am BMI 30.0-30.9,adult June 05, 2025 7:2 5am Summary Purpose Family History No Family History Records FoundNo Family History Records FoundNo Family History Records FoundNo Family History Records Found Reason for Referral Reason Hypothyroidism Diagnosis 1 Hypothyroidism (E03. 9) Referral Organization [facility] Referring Provider First Name Jake Referring Provider [...] section and content) DATE CREATED AUTHOR 10/31/2021 [facility] DATE CREATED AUTHOR AUTHOR'S ORGANIZ ATION [facility]/25/2021 [facility] DATE CREATED AUTHOR AUTHOR'S ORGANIZ ATION 06/17/2023 [place] [facility] DATE CREATED AUTHOR AUTHOR'S ORGANIZ ATION 09/03/2024 [facility] Reason for Visit (unrecogniz ed section and content) Specialty Diagnoses / Procedures Referred By Kymberly hicks Referred To Contact Physical Therapy Procedures eval and treat Marlin Phan S, CHEESE TESTER - BILLING CLINICIAN [address] [place] [address] [facility] Physical Therapy [address] [place] [address] Referral ID Status Reason Start Date Expiration [...] September 26, 2023 End: September 26, 2023 Tona [facility] , CHEESE TESTER Referring Provider Active Start: September 26, 2023 End: September 26, 2023 Team Status: Inactive Member Role Status Dates Jake House CHEESE TESTER Attending Provider Active Start: October 06, 2023 End: October 06, 2023 Team Status: Inactive Member Role Status Dates Ailyn Willis DO Primary Care Provider Active Start: October 06, 2023 End: October 06, 2023 Jake House CHEESE TESTER Attending Provider Active Start: October 06, 2023 End: October 06, 2023 Garnisher Relationship Specialty Start Date End Date Ailyn Willis, DO PCP - General Family Medicine 10/28/21 Garnisher Relationship Specialty Start Date End Date Ailyn Willis, DO PCP - General Family Medicine 10/28/21 Garnisher Relationship Specialty Start Date End Date Ailyn Willis, DO PCP - General Family Medicine 10/28/21 Team Status: Inactive Member Role Status Dates Ailyn Willis DO Primary Care Provider Active Jake House , CHEESE TESTER Attending Provider Active Team Status: Active Member Role Status Dates Ailyn Willis DO Primary Care Provider Active Jake House , CHEESE TESTER Attending Provider Active Team Status: Inactive Member [...] 2024 End: January 12, 2024 Jake House CHEESE TESTER Attending Provider Active Start: January 12, 2024 End: January 12, 2024 Team Status: Inactive Member Role Status Dates Ailyn Willis DO Primary Care Provid er, Attending Provider Active Start: February 25, 2024 End: February 25, 2024 Team Status: Inactive Member Role Status Dates Ailyn Willis DO Primary Care Provider Active Start: May 01, 2024 End: May 01, 2024 Tondra Dexter House , CHEESE TESTER Attending Provider Active Start: May 01, 2024 End: May 01, 2024 Team Status: Inactive Member Role Status Dates Ailyn Willis DO Primary Care Provider Active Start: August 04, 2024 End: August 04, 2024 Tona [facility]ter [facility] , CHEESE TESTER Attending Provider Active Start: August 04, 2024 End: August 04, 2024 Team Status: Inactive Member Role Status Dates Ailyn Willis DO Primary Care Provider Active Start: August 09, 2024 End: August 09, 2024 Tondra Dexter House , CHEESE TESTER Attending Provider Active Start: August 09, 2024 End: August 09, 2024 Team Status: Active Member Role Status Dates Ailyn Willis DO Primary Care Provider Active Start: August 07, 2024 Dario Shaw DO Attending Provider Active Sta rt: August 07, 2024 Team Status: Inactive Member Role Status Dates Ailyn Willis DO Primary Care Provider Active Start: September 01, 2024 End: September 01, 2024 Tona Dexter House , CHEESE TESTER Attending Provider Active Start: September 01, 2024 End: September 01, 2024 Team Status: Inactive Member Role Status Dates Ailyn Willis DO Primary Care Provider Active Start: November 13, 2024 End: November 13, 2024 Tona Dexter [facility] , CHEESE TESTER Attending Provider Active Start: November 13, 2024 End: November 13, 2024 Team Status: Inactive Member Role Status Dates Ailyn Willis DO Primary Care Provider Active Start: June 05, 2025 End: June 05, 2025 Jake House , CHEESE TESTER Attending Provider Active Start: June 05, 2025 End: June 05, 2025 Goals (unrecognized section and content) Goals may [...] BE BASED ON THE PRIMARY CLINICAL RECORDS. [employer] [facility]. provides no warranty or guarantee of the accuracy or completeness of information in this document.
--- NOTE | 2025-08-07 09:01 | CT_ITS ---
The [address] [address] Patient Name: VERONICA NATION MRN: [id number] date: 1970 Sex: F Assigned Patient Location: ER Current Patient Location: ER Accession/Order Number: [id number] Exam Date: 08/07/2025 09:30 Report Date: 08/07/2025 10:09 At the request of: ELIZABETH PEDRAZA DO Procedure: CT angio abdomen pelvis CTA OF THE CHEST, ABDOMEN AND PELVIS WITH CONTRAST COMPARISON: Chest 10/14/2023 and abdomen and pelvis 08/07/2024 CLINICAL DATA: Midsternal chest and epigastric pain radiating to the back. Shortness of breath, diaphoresis and dizziness. Spiral images were obtained through the chest, abdomen and pelvis following 100 MLO of Omnipaque 350. Sagittal coronal MIP as well as 3-D volume rendered reconstructions of the aorta and its branches were reviewed. Images of the lungs were also evaluated using both narrow and wide window settings. This CT exam was performed using one or more following dose reduction techniques: Automated exposure control, adjustment of the mA and/or kV according to patient size, or use of iterative reconstruction technique. The thoracic and abdominal aorta are normal in caliber, with no evidence of aneurysm. No dissection is seen. The visceral arteries are patent and show normal opacification. No iliac artery abnormalities are noted. There is no periaortic fluid. The heart is normal size. No pericardial effusion is seen. The pulmonary arteries are adequately opacified and no emboli are identified. There is no pathologic adenopathy. There is minimal basilar atelectasis or scarring. No consolidation, pleural effusion or pneumothorax is seen. No pulmonary nodularity is noted. There is subtle levoscoliotic curvature and minor endplate spurring at the thoracic spine. The gallbladder is surgically absent. No common duct stones are identified. Fatty infiltration liver is not excluded given the timing of the bolus. No intrahepatic masses are seen. The spleen and pancreas show no acute findings. There is minor left adrenal limb thickening. The renal nephrograms are symmetric. No hydronephrosis is noted. No ureteral dilatation or stones are seen. There are a few small abdominal lymph nodes. No ascites is identified. The small bowel loops are normal caliber. There is mild stool at the ascending and transverse colon. The descending colon is decompressed. There is mild wedge deformity at L1, asymmetric toward the left which was not seen previously. Images through the pelvis show no dilated small bowel. There is no appendiceal inflammation. The remainder of the distal colon is decompressed. There is at least one sigmoid diverticulum. There is no associated active inflammation. The uterus is slightly levoverted. No adnexal cysts are seen. The urinary bladder is within normal limits. No ascites is noted. CT/CT angio abdomen pelvis IMPRESSION: NO AORTIC ANEURYSM OR DISSECTION. MINIMAL BASILAR SCARRING AND/OR ATELECTASIS. NO BOWEL OR URINARY TRACT OBSTRUCTION. MINOR DIVERTICULOSIS. DEVELOPING L1 COMPRESSION DEFORMITY. NO ADDITIONAL ACUTE FINDINGS. Impression dictated by: Yumiko Waddell M.D. 08/07/2025 10:09 AM Dictation Location: [place] [address] Electronically authenticated by: [id number] Y Date: 08/07/2025 10:09
--- NOTE | 2025-08-07 09:01 | ECG_ITS ---
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
--- NOTE | 2025-08-07 09:01 | CT_ITS ---
The [address] [address] Patient Name: VERONICA NATION MRN: [id number] date: 1970 Sex: F Assigned Patient Location: ER Current Patient Location: ER Accession/Order Number: [id number] Exam Date: 08/07/2025 09:30 Report Date: 08/07/2025 10:09 At the request of: ELIZABETH PEDRAZA DO Procedure: CT angio abdomen pelvis CTA OF THE CHEST, ABDOMEN AND PELVIS WITH CONTRAST COMPARISON: Chest 10/14/2023 and abdomen and pelvis 08/07/2024 CLINICAL DATA: Midsternal chest and epigastric pain radiating to the back. Shortness of breath, diaphoresis and dizziness. Spiral images were obtained through the chest, abdomen and pelvis following 100 MLO of Omnipaque 350. Sagittal coronal MIP as well as 3-D volume rendered reconstructions of the aorta and its branches were reviewed. Images of the lungs were also evaluated using both narrow and wide window settings. This CT exam was performed using one or more following dose reduction techniques: Automated exposure control, adjustment of the mA and/or kV according to patient size, or use of iterative reconstruction technique. The thoracic and abdominal aorta are normal in caliber, with no evidence of aneurysm. No dissection is seen. The visceral arteries are patent and show normal opacification. No iliac artery abnormalities are noted. There is no periaortic fluid. The heart is normal size. No pericardial effusion is seen. The pulmonary arteries are adequately opacified and no emboli are identified. There is no pathologic adenopathy. There is minimal basilar atelectasis or scarring. No consolidation, pleural effusion or pneumothorax is seen. No pulmonary nodularity is noted. There is subtle levoscoliotic curvature and minor endplate spurring at the thoracic spine. The gallbladder is surgically absent. No common duct stones are identified. Fatty infiltration liver is not excluded given the timing of the bolus. No intrahepatic masses are seen. The spleen and pancreas show no acute findings. There is minor left adrenal limb thickening. The renal nephrograms are symmetric. No hydronephrosis is noted. No ureteral dilatation or stones are seen. There are a few small abdominal lymph nodes. No ascites is identified. The small bowel loops are normal caliber. There is mild stool at the ascending and transverse colon. The descending colon is decompressed. There is mild wedge deformity at L1, asymmetric toward the left which was not seen previously. Images through the pelvis show no dilated small bowel. There is no appendiceal inflammation. The remainder of the distal colon is decompressed. There is at least one sigmoid diverticulum. There is no associated active inflammation. The uterus is slightly levoverted. No adnexal cysts are seen. The urinary bladder is within normal limits. No ascites is noted. CT/CT angio chest IMPRESSION: NO AORTIC ANEURYSM OR DISSECTION. MINIMAL BASILAR SCARRING AND/OR ATELECTASIS. NO BOWEL OR URINARY TRACT OBSTRUCTION. MINOR DIVERTICULOSIS. DEVELOPING L1 COMPRESSION DEFORMITY. NO ADDITIONAL ACUTE FINDINGS. Impression dictated by: Yumiko Waddell M.D. 08/07/2025 10:09 AM Dictation Location: [place] [address] Electronically authenticated by: [id number] Y Date: 08/07/2025 10:09
[2025-08-07 09:16] LABS: Hematocrit 36.7 % (36.0-48.0); Hemoglobin 12.5 g/dL (12.0-16.0); Immature Granulocytes Abs Auto 0.02 10^3/uL (0.00-0.03); Immature Granulocytes Pct Auto 0.2 % (0.0-0.5); Lymphocytes Absolute Auto 1.6 10^3/uL (1.2-3.8); Mean Corpuscular HGB Conc 34.1 g/dL (29.9-35.2); Mean Corpuscular Hemoglobin 30.8 pg (26.7-34.0); Mean Corpuscular Volume 90.4 fL (81.0-99.0); Platelet Count 342 10^3/uL (150-450); Red Blood Count 4.06 10^6/uL (4.20-5.40); White Blood Count 9.3 10^3/uL (4.0-11.0)
[2025-08-07 09:26] LABS: Lactate/Lactic Acid 0.9 mmol/L (0.4-2.0)
[2025-08-07 09:32] LABS: Alanine Aminotransferase 33 U/L (14-59); Albumin Globulin Ratio 0.8; Albumin Level 3.7 g/dL (3.4-5.0); Alkaline Phosphatase 86 U/L (46-116); Anion Gap 16.9; Aspartate Amino Transferase 25 U/L (15-37); Blood Urea Nitrogen 36.0 mg/dL (7.0-18.0); Calcium 9.6 mg/dL (8.5-10.1); Carbon Dioxide 24.5 mmol/L (21.0-32.0); Chloride 102 mmol/L (98-107); Estimated GFR (African America >60 (>=60 mL/min/1.73m^2); Estimated GFR (Non-African Ame 50 (>=60 mL/min/1.73m^2); Globulin 4.5 g/dL; Glucose 206 mg/dL (74-106); Lipase 38.0 U/L (16.0-77.0); Magnesium 1.8 mg/dL (1.8-2.4); NT Pro B Type Natriuretic Pept 97.0 pg/mL (<=900.0); Potassium 4.4 mmol/L (3.5-5.1); Sodium 139 mmol/L (136-145); Total Protein 8.2 g/dL (6.4-8.2)
--- NOTE | 2025-08-07 10:22 | ECG_ITS ---
[facility] Test Date: 2025-08-07 Pat Name: VERONICA NATION Department: Room: - Gender: Female [employer]: : 1970 Requested By: [id number] Order Number: [id number] Reading MD: MADDY DEL CASTILLO Measurements Intervals Central Rate: 109 P: 68 OK: 134 QRS: 58 QRSD: 84 T: 31 QT: 334 QTc: 398 Interpretive Statements 1120 Sinus tachycardia 9140 abnormal rhythm ECG Compared to ECG 08/07/2024 11:24:17 No significant changes Electronically Signed On 08-07-2025 11:19:05 EDT by MADDY DEL CASTILLO
--- NOTE | 2025-08-07 10:33 | ED.GENADUL1 ---
HPI HPI - General Adult General Chief complaint: Chest Pain Stated complaint: CHEST PAIN DIZZINESS Time Seen by Provider: 08/07/25 08:46 Mode of arrival: walk-in Limitations: no limitations History of Present Illness HPI narrative: Patient is a 54-year-old female presenting to the emergency department for evaluation of chest pain/epigastric. Patient states that she was in bed earlier this morning when she had acute onset of epigastric pain. She rated the pain a 20 out of 10 in severity . She states the pain lasted approximately 30 minutes before it started subside. Her chest pain is currently rated a 4 out of 10. She states that the pain was sharp in nature and radiated to her back. It did not go into her arm or jaw. She states she was extremely sweaty and nauseous when her symptoms going. She states this happened 1 time in the past, however did not last nearly as long as this episode today. She denies history of prior ME or cardiac disease. Medical history is significant for hypothyroidism, hypertension, and diabetes. Related Data Home Medications ?Medication ?Instructions ?Recorded ?Confirmed atorvastatin 20 mg tablet 20 mg PO DAILY 12/13/24 08/07/25 insulin pump cart,auto,BT,G6/7 12/13/24 08/07/25 (Omnipod 5 G6-G7 Pods (Gen 5) subcutaneous cartridge) levothyroxine 150 mcg tablet 150 mcg PO DAILY 12/13/24 08/07/25 metoprolol succinate 50 mg 50 mg PO DAILY 12/13/24 08/07/25 tablet,extended release 24 hr D3K2 1 tab PO DAILY 08/07/25 08/07/25 Lactobacillus rhamnosus GG 10 1 cap PO DAILY 08/07/25 08/07/25 billion cell capsule (Culturelle) insulin lispro 100 unit/mL 08/07/25 subcutaneous solution (Humalog U-100 Insulin) losartan 25 mg tablet 25 mg PO DAILY 08/07/25 08/07/25 magnesium oxide 400 mg PO BEDTIME 08/07/25 08/07/25 mecobalamin (vitamin B12) 500 mcg mcg PO 08/07/25 chewable tablet omeprazole 20 mg capsule,delayed 20 mg PO DAILY 08/07/25 08/07/25 release Allergies Allergy/AdvReac Type Severity Reaction Status Date / Time codeine AdvReac Rash Verified 08/07/25 08:44 naproxen (From Naprosyn) AdvReac Anaphylaxis Verified 08/07/25 08:44 Opioid HPI Opioid Management Most Recent Opioid Data: Last Pain Scale 5 Today, 08:44 Review of Systems ROS Status of ROS 10 or more systems reviewed and unremarkable except as noted in history and below PFSH PFSH Social History Smoking status: Former smoker Little interest or pleasure in doing things: not at all Feeling down, depressed, or hopeless: not at all Exam Narrative Exam Narrative: CONSTITUTIONAL: Appears significantly comfortable, answering questions and following commands appropriately SKIN: Was warm and dry. EYES: No conjunctiva pallor. EARS, NOSE, THROAT: No JVD. RESPIRATORY: Clear to auscultation bilaterally, no wheezes, crackles, or stridor, no use of accessory muscles CARDIOVASCULAR: Normal rate and regular rhythm. There is no S3, S4, murmur, rub. Radial and dorsalis pedis pulses are 2+ and symmetrical. GASTROINTESTINAL: Abdomen was soft, non-tender, and non-distended. There is no guarding or rebound tenderness MUSCULOSKELETAL: There was no lower extremity edema, erythema, or tenderness. NEUROLOGIC: Patient is awake and alert. Equal strength in all extremities. Facies were symmetrical. Constitutional Vital Signs, click to edit/add: Last Vital Signs Temp 97.4 F L 08/07/25 08:44 Pulse 114 H 08/07/25 10:52 Resp 16 08/07/25 10:52 BP 131/76 08/07/25 11:00 Pulse Ox 95 08/07/25 10:52 O2 Del Method Room Air 08/07/25 09:15 Course Vital Signs Vital signs: Vital Signs Blood Pressure 152/86 H 08/07/25 08:43 Pulse Oximetry 78 L 08/07/25 08:43 Temperature 97.4 F L 08/07/25 08:44 Pulse Rate 114 H 08/07/25 10:52 Respiratory Rate 16 08/07/25 10:52 Blood Pressure 131/76 08/07/25 11:00 Pulse Oximetry 95 08/07/25 10:52 Oxygen Delivery Method Room Air 08/07/25 09:15 Medical Decision Making [facility] Narrative Medical decision making narrative: Patient is a 54-year-old female presenting to the emergency department for evaluation of acute onset chest pain/epigastric pain while laying in bed. Vital signs on arrival were significant for tachycardia tachypnea. She has a normal blood pressure and saturating 98% room air. Though she appears quite uncomfortable, she has an unremarkable physical examination. She has good peripheral pulses in all 4 extremities. Lungs are clear to auscultation. Differential diagnosis includes ACS, arrhythmia, pneumothorax, aortic dissection, gastritis, pancreatitis, or other electrolyte/metabolic derangement. IV was established and cardiac workup was obtained. CT angio of the chest/abdomen/pelvis was ordered. CT angio independently reviewed interpreted by myself and radiology demonstrated no acute process. Laboratory studies were unremarkable. No significant electrolyte or metabolic derangement. No evidence of acute kidney injury. No anemia, leukocytosis, or thrombocytopenia. No transaminitis or hyperbilirubinemia. Lipase nonelevated. Serial troponins were nonelevated. 12 Lead EKG @ 8:46am : Sinus tachycardia at a rate of 109. Normal axis. No ST segment elevations. QRS, NC, and QTc interval within normal limits. Final impression: Sinus tachycardia without evidence of acute myocardial ischemia Repeat 12 Lead EKG @ 10:52 am : Sinus tachycardia at a rate of 102. Normal axis. No ST segment elevations. QRS, NC, and QTc interval within normal limits. Final impression: Sinus tachycardia without evidence of acute myocardial ischemia or dynamic changes compared to EKG from earlier this morning. On reevaluation, patient states her symptoms have significantly improved. Her vital signs have normalized and she is no longer tachycardic. She was able to ambulate to the bathroom unassisted with no issues. She feels well enough to be discharged home. I instructed her to immediately return to the emergency department should her symptoms worsen/recur. The patient has a HEART score of 3, making her low risk for MACE. I do believe she is stable for outpatient follow up with her PCP. Patient understands and agrees to the plan. FINAL IMPRESSION: #Acute chest pain, resolved DISPOSITION: Discharged home CONDITION: Good Medical Records Medical records reviewed: Yes I reviewed the patient's medical records Lab Data Lab results reviewed: Yes I reviewed the patient's lab results Labs: Lab Results 08/07/25 08/07/25 Range/Units 08:50 10:25 WBC 9.3 (4.0-11.0) 10^3/uL RBC 4.06 L (4.20-5.40) 10^6/uL Hgb 12.5 (12.0-16.0) g/dL Hct 36.7 (36.0-48.0) % MCV 90.4 (81.0-99.0) fL MCH 30.8 (26.7-34.0) pg MCHC 34.1 (29.9-35.2) g/dL RDW 12.4 (11.0-15.0) % Plt Count 342 (150-450) 10^3/uL MPV 10.6 (9.5-13.5) fL Neut % (Auto) 75.8 H (43.0-75.0) % Lymph % (Auto) 17.1 L (20.5-60.0) % [place] % (Auto) 4.4 (1.7-12.0) % Eos % (Auto) 1.3 (0.9-7.0) % Baso % (Auto) 1.2 (0.2-2.0) % Neut # (Auto) 7.1 H (1.4-6.5) 10^3/uL Lymph # (Auto) 1.6 (1.2-3.8) 10^3/uL [place] # (Auto) 0.4 (0.3-0.8) 10^3/uL Eos # (Auto) 0.1 (0.0-0.7) 10^3/uL Baso # (Auto) 0.1 (0.0-0.1) 10^3/uL Abs Immat Gran (auto) 0.02 (0.00-0.03) 10^3/uL Imm/Tot Granulo (auto) 0.2 (0.0-0.5) % Sodium 139 (136-145) mmol/L Potassium 4.4 (3.5-5.1) mmol/L Chloride 102 (98-107) mmol/L Carbon Dioxide 24.5 (21.0-32.0) mmol/L Anion Gap 16.9 BUN 36.0 H (7.0-18.0) mg/dL Creatinine 1.13 H (0.55-1.02) mg/dL Est GFR ( Amer) >60 (>=60 mL/min/1.73m^2) Est GFR (Non-Af Amer) 50 L (>=60 mL/min/1.73m^2) BUN/Creatinine Ratio 31.9 Glucose 206 H (74-106) mg/dL Lactate 0.9 (0.4-2.0) mmol/L Calcium 9.6 (8.5-10.1) mg/dL Magnesium 1.8 (1.8-2.4) mg/dL Total Bilirubin 0.4 (0.2-1.0) mg/dL AST 25 (15-37) U/L ALT 33 (14-59) U/L Alkaline Phosphatase 86 (46-116) U/L Troponin I High Sens 5.4 7.0 (4.0-51.3) pg/mL NT-Pro-B Natriuret Pep 97.0 (<=900.0) pg/mL Total Protein 8.2 (6.4-8.2) g/dL Albumin 3.7 (3.4-5.0) g/dL Globulin 4.5 g/dL Albumin/Globulin Ratio 0.8 Lipase 38.0 (16.0-77.0) U/L Imaging Data CT scan - abdomen: Attestation: I personally reviewed and interpreted this imaging study as follows: Radiologist's impression: ITS Impressions Abdomen/Pelvis CTA 08/07/25 09:01 IMPRESSION: NO AORTIC ANEURYSM OR DISSECTION. MINIMAL BASILAR SCARRING AND/OR ATELECTASIS. NO BOWEL OR URINARY TRACT OBSTRUCTION. MINOR DIVERTICULOSIS. DEVELOPING L1 COMPRESSION DEFORMITY. NO ADDITIONAL ACUTE FINDINGS. Impression dictated by: Yumiko Waddell M.D. 08/07/2025 10:09 AM Dictation Location: [facility] Electronically authenticated by: [id number] Y Date: 08/07/2025 10:09 Chest CTA 08/07/25 09:01 IMPRESSION: NO AORTIC ANEURYSM OR DISSECTION. MINIMAL BASILAR SCARRING AND/OR ATELECTASIS. NO BOWEL OR URINARY TRACT OBSTRUCTION. MINOR DIVERTICULOSIS. DEVELOPING L1 COMPRESSION DEFORMITY. NO ADDITIONAL ACUTE FINDINGS. Impression dictated by: Yumiko Waddell M.D. 08/07/2025 10:09 AM Dictation Location: [facility] Electronically authenticated by: [id number] Y Date: 08/07/2025 10:09 ECG Data Attestation: I personally reviewed and interpreted this ECG as follows: Discharge Plan Discharge Chief Complaint: Chest Pain Clinical Impression: Chest pain Patient Disposition: Home, Self-Care Time of Disposition Decision: 11:06 Condition: Good Mode of Transportation: Private Vehicle Prescriptions / Home Meds: No Action atorvastatin 20 mg tablet 20 mg PO DAILY (DME) Omnipod 5 G6-G7 Pods (Gen 5) Cartridge SUBCUT levothyroxine 150 mcg tablet 150 mcg PO DAILY metoprolol succinate 50 mg tablet extended release 24 hr 50 mg PO DAILY losartan 25 mg tablet 25 mg PO DAILY omeprazole 20 mg capsule,delayed release(DR/EC) 20 mg PO DAILY insulin lispro [Humalog U-100 Insulin] 100 unit/mL solution D3K2 1 tab PO DAILY magnesium oxide 400 mg magnesium capsule 400 mg PO BEDTIME Culturelle 10 billion cell capsule 1 cap PO DAILY mecobalamin (vitamin B12) 500 mcg tablet,chewable PO Print Language: Armenian Instructions: Chest Pain (ED) Referrals: AILYN WILLIS [Primary Care Provider, Unknown] - 1 week
== END 2025-08-07 11:21 | disposition home or self-care (01) ==
PROVIDERS: Emergency Provider Student in an Organized Health Care Education/Training Program; PCP Family Medicine
DX: R07.9 Chest pain, unspecified (principal); R10.13 Epigastric pain; E03.9 Hypothyroidism, unspecified; I10 Essential (primary) hypertension; E11.9 Type 2 diabetes mellitus without complications; Z79.4 Long term (current) use of insulin; Z96.41 Presence of insulin pump (external) (internal); Z87.891 Personal history of nicotine dependence
CPT/HCPCS: 36415; 71275; 74174; 80053; 83605; 83690; 83735; 83880; 84484; 85025; 93005; 99285; Q9967

== ENCOUNTER 2025-10-12 08:45 | Outpatient (OUT) | payer BC, SELFPAY ==
--- OUTSIDE RECORDS SUMMARY | 2025-10-12 08:50 | XMS_ITS | Clinical Summary ---
Author Organization [facility] Address [address] [place] [address] Care Team Providers Care Developer [employer] Name Role Phone Huber [place]rickson MD Primary Care Provider [phone] Allergies Active AllergyReactionsCriticalityNoted DateCommentsCodeineNausea Only,Nausea And Vomiting,JyrsEtcwzo93/24/2023HydrocodoneNausea Only05/23/2023NaproxenUnknown ,Shortness of kjrbnrOpoz86/24/2023OxycodoneGI qvcjlewlckz41/24/2023 Medications MedicationSigDispense QuantityRefillsLast FilledStart DateEnd DateStatus metoprolol tartrate (Lopressor) 50 MG tablet Metoprolol TartrateActive atorvastatin (Lipitor) 20 MG tablet 1 (one) time each day at the same time.Active cholecalciferol (Vitamin D-3) 50 MCG (1999) capsule 1 capsule 1 (one) time each day at the same time.Active HumaLOG 100 UNIT/ML solution inject 100 units VIA INSULIN PUMP once daily as xlmxuybj92/12/2023ctive losartan (Cozaar) 25 MG tablet 04/25/2023ctive omeprazole (PriLOSEC) [address] capsule 1 (one) time each day at the same time.Active magnesium oxide (Mag-Ox) 400 MG tablet 400 mg.06/10/2023ctive acetaminophen (Tylenol 8 Hour) 650 MG ER tablet 1,300 mg.06/10/2023ctive Insulin Disposable Pump (Omnipod 5 G6 Pod, Gen 5,) misc use WITH SYSTEM. CHANGE EVERY 72 HOURS07/11/2023ctive metoprolol succinate XL (Toprol-XL) 50 MG 24 hr tablet 07/25/2023ctive Continuous Glucose Sensor (Dexcom G6 Sensor) [facility] [place] 09/15/2024ctive Continuous Glucose Transmitter (Dexcom G6 transmitter) [facility] [place] 09/13/2024ctive promethazine (Phenergan) 25 MG suppository Insert 25 mg into the rectum every 6 (six) hours if mgerfm7208/07/2024ctive promethazine (Phenergan) 25 MG tablet Take 25 mg by mouth every 6 (six) hours if eknvuo9208/07/2024ctive cetirizine (ZyrTEC) 10 MG tablet Take by mouth DailyActive glucagon (Gvoke HypoPen) 1 MG/0.2ML injection Inject 1 mg under the skin 1 (one) time if needed for low blood sugarActive levothyroxine (Synthroid, Levoxyl) 150 MCG tablet Indications:Hypothyroidism, unspecified typeTAKE 1 TABLET BY MOUTH EVERY DAY IN THE MORNING ON AN EMPTY STOMACH 90 tablet 5Active Active Problems No known active problems Encounters DateTypeDepartmentCare QflqNuefmcqnfmt04/12/2025Refill [facility] [address] [place] [address] Char Nuñez MD Hypothyroidism, unspecified typefrom Last 3 Months Immunizations ImmunizationAdministration DatesNext DueHep B, adult05/15/2014,12/19/2013, 11/07/2013Influenza, recombinant, quadrivalent, injectable, preservative free 08/25/2021Moderna SARS-CoV-2 Nvhypzgldkk00/06/2022Pfizer Purple Cap SARS-CoV-2 Uhtfnpujgof47/28/2021,11/07/2020,10/21/20208770PRNA-NNY-0 (COVID-19) vaccine, mRNA, spike protein, LNP, bivalent, preservative free, 30 mcg/0.3 mLdose, nabor-sucrose zsepvtvgcvz40/29/8513Qjsg91/16/2014 Family History * Patient is adopted RelationNameStatusCommentsFatherAliveMotherAlive Social History Tobacco UseTypesPacks/DayYears UsedDateSmoking Tobacco: FormerCigarettes Smokeless Tobacco: Never Tobacco Cessation:Counseling Given: Not Answered Comments:Ex smoker 03/10/2023 Alcohol UseStandard Drinks/WeekCommentsNever0 (1 standard drink = 0.6 oz pure alcohol)Caffine intake: 1-2 cups per day coffee, with 2-16 oz bottles tea CommentsUnknownSex and Gender InformationValueDate RecordedSex Assigned at CibcrYqmrah75/08/2023 9:11 AM EDTLegal DftHjqruu09/15/2023 7:22 PM EDTGender BynwgpgdUamnnv08/08/2023 9:11 AM EDTSexual OrientationNot on file Last Filed Vital Signs Vital SignReadingTime TakenCommentsBlood Qdchyojz722/6809/28/2023 6:01 PM EST Ilioj896209/28/2023 6:01 PM ESTTemperature--Respiratory Cosc513211/28/2022 6:01 PM ESTOxygen Saturation--Inhaled Oxygen Concentration--Djyzfx89 kg (216 lb) 09/28/2023 6:01 PM ECTPmhjya723.7 cm (5' 8 )09/28/2023 6:01 PM ESTBody Mass Index32.8409/28/2023 6:01 PM EST Plan of Treatment Health MaintenanceDue DateLast DoneCommentsCT Grkmulfpvqfm68/02/1969Colonoscopy 1968Colorectal Cancer Swzzkqrns27/02/1969FIT-DNA1968FIT1970 FOBT1970 2632Uzyeymeipcabj88/02/1969Pap Smear1989Cervical Cancer Npsgicxxv17/02/1999HPV/Qsqzld1312/02/19985604Ghwqpppeh65/02/2009COVID-19 Vaccine ( season)/03/2022, 08/27/2021, 11/07/2020, Additional history existsInfluenza Vaccine (#1)neumococcal Vaccine: Pediatrics (0 to 5 Years) and At-Risk Patients (6 to 64 Years)Aged OutNo longer eligible based on patient's age to complete this topic Insurance * Guarantor: Alana Harvey TypeRelation to PatientDate of BirthPhone Billing AddressPersonal/KgjvpyWrjk56/[birth year][address] [address] Care Teams Team MemberRelationshipSpecialtyStart DateEnd Date Huber [place]rickson MD PCP - GeneralFamily Medicine05/20/23
--- OUTSIDE RECORDS SUMMARY | 2025-10-12 08:50 | XMS_ITS | Clinical Summary ---
Author Organization [facility] Address [address], [address] [place] [address] Care Team Providers Care Health Assessment And Treatment Teacher Name Role Phone Huber [place]rickson DO Primary Care Provider [phone] Social History Tobacco UseTypesPacks/DayYears UsedDateSmoking Tobacco: Never Assessed CommentsUnknownSex and Gender InformationValueDate RecordedSex Assigned at Not on fileLegal HcyVaykcv72/29/2021 3:50 PM ESTGender IdentityNot on fileSexual OrientationNot on file Plan of Treatment Not on file Insurance Care Teams Team MemberRelationshipSpecialtyStart DateEnd Date Huber [place]rickson DO [address] [facility] [address] [place] [address] PCP - [facility]10/28/21
--- OUTSIDE RECORDS SUMMARY | 2025-10-12 08:50 | XMS_ITS | CCD ---
Author Organization [facility] Care Team Providers Care Layer Out Plate Glass Name Role Phone Ailyn Willis Primary Care [...] Care Provider SWATHI Housea Dexter Attending Provider DO Ailyn Willis Primary Care Provider Map, SWATHI Tondra K Attending Provider DO Ailyn Willis Primary Care Provider MapSWATHI millera Dexter Attending Provider MD Char Nuñez Attending Provider Paty Guaman Unavailable Hernesto Mckenzie Admitting Unavail able Hernesto Mckenzie Attending Unavail able WILLIS, AILYN R Primary Care Unavailable Navya Atkinson Unavailable DO Ailyn Willis R Primary Care Provider MD Char Nuñez Attending Provider [place], ACID SPLICER Tondra K Referring Provider [place], ACID SPLICER Tondra K Attending Provider DO Lazaro Ailyn R Primary Care Provider Lazaro, Ailyn R Attending Provider [phone] Lazaro, Ailyn R Primary Care Provider [place], ACID SPLICER Tondrregine K Attending Provider [place], Tondra K Admitting Unavailable Willis, Ailyn R Primary Care Unavailable Mapus, Tondra K Attending Unavailable Ailyn Willis R Consulting Unavailable Lazaro, Ailyn Cagle Primary Care Unavailable Char Nuñez Attending Unavailable Char Nuñez Admitting Unavailable Mapus, Tondra K Referring Unavailable [place], Tondra K Admitting Unavailable Ailyn Willis R Primary Care Unavailable Map[place], Tondra K Attending Unavailable Willis, Ailyn R Admitting Unavailable Willis, Ailyn R Attending Unavailable Willis, Ailyn R Primary Care Unavailable Mapus, Tondra K Attending Unavailable [place], Tondra K Admitting Unavailable Willis, Ailyn R Primary Care Unavailable Ailyn Willis DO R Primary Care Provider [place] ACID SPLICER, Tondra K Attending Provider Ailyn Willis DO Primary Care Provider [place] ACID SPLICER, Tondra K Attending Provider Ailyn Willis DO Attending Provider [phone] Unavailable Unavailable Unavailable Allergies Allergy ClassificationReported Allergen(s)Allergy TypeDate of OnsetReaction(s) Facility (20 sources)Codeine; Translations: [codeine]Drug Cdurcqd28-16-8263Yzod, Unknown [facility] (20 sources)Naproxen; Translations: [naproxen]Drug Rtbhcqf28-76-0377Sstulckczqy, Unknown[facility] ([facility] sources)mounjaroPropensity to adverse knqguzocy03-44-4354WhigodpxPzuwcuy[facility] Medications Current Medications MedicationDrug Class(es)DatesSig (Normalized)Sig (Original)0.5 ML tirzepatide 5 MG/ML Auto-Injector [Mounjaro] (2 sources)Start: 39-54-9413wmirwb 2.5 mg by subcutaneous injection every week Mounjaro 2.5 MG/0.5ML 2.5mg Subcutaneous once weekly for 28 days Sep, Active8 hr acetaminophen 650 mg extended release oral tablet (20 sources)Start: 82-56-1191hrjt 1 tablet by mouth every twelve hours as needed Acetaminophen (Tylenol Arthritis Pain) 650 mg tablet extended release Active 650 MG PO Every 12 hours as needed January 12, 2024 12:00am Complies with drug therapytake 2 tablets by mouth every eight hoursAcetaminophen ER 650 MG 2 tablets as needed Orally every 8 hrs PRN Activetake 2 tablets by mouth every eight hours as neededAcetaminophen ER 650 MG 2 tablets as needed Orally every 8 hrs PRN Activeatorvastatin 20 mg oral tablet (20 sources)HMG-CoA Reductase InhibitorStart: 50-22-5863wyax 1 tablet by mouth once dailyAtorvastatin 20 mg tablet Active 20 MG PO Daily August 13, 2025 3:36pm Complies with drug therapyStart: 12-12-2024 End: 11-22-8967laaa 1 tablet by mouth once dailyAtorvastatin 20 mg tablet Discontinued 0 .ROUTE .COMPLEX December 12, 2024 9:07am August 13, 2025 3:37pm TAKE ONE TABLET BY MOUTH EVERY DAYStart: 11-18-2018 End: 84-98-1691rbgr 1 tablet by mouth once dailyAtorvastatin 20 mg tablet Discontinued 20 MG PO Daily January 02, 2024 10:27am January 06, 2024 1:26pm Blood-Glucose Sensor (Dexcom G6 Sensor) device (10 sources)Start: 39-19-9454Whrrs-Glucose Sensor (Dexcom G6 Sensor) device Active 0 .MEDSUPPLY January 07, 2025 7:53am As directed SQ, Change every 10 daysStart: 12-27-2023 End: 69-65-3231Xjvok-Glucose Sensor (Dexcom G6 Sensor) device Discontinued 0 .MEDSUPPLY December 27, 2023 1:00am January 07, 2025 7:53am As directed SQ, Change every 10 daysStart: 44-19-1517Lbnxn-Glucose Sensor (Dexcom G6 Sensor) device Active 0 .MEDSUPPLY December 27, 2023 12:00am Asdirected SQ, Change every 10 daysStart: 53-58-6585Pwuvk-Glucose Sensor (Dexcom G6 Sensor) device Active 0 .MEDSUPPLY December 27, 2023 1:00am As directed SQ, Change every 10 daysBlood-Glucose Transmitter (Dexcom G6 Transmitter) device (10 sources)Start: 80-76-9897Xnmyi-Glucose Transmitter (Dexcom G6 Transmitter) device Active 0 .Route 1 January 07, 2025 7:53am As directed SQ, Change every 90 daysStart: 12-27-2023 End: 41-26-1997Torqn-Glucose Transmitter (Dexcom G6 Transmitter) device Discontinued 0 .Route 1 December 27, 2023 1:00am January 07, 2025 7:53am As directed SQ, Change every 90 daysStart: 71-49-0799Otulh-Glucose Transmitter (Dexcom G6 Transmitter) device Active 0 .Route 1 December 27, 2023 12:00am As directed SQ, Change every 90 daysStart: 59-84-5245Lsrcv-Glucose Transmitter (Dexcom G6 Transmitter) device Active 0 .Route 1 December 27, 2023 1:00am As directed SQ, Change every 90 dayscetirizine hydrochloride 10 mg oral tablet (20 sources)Histamine-1 Receptor Antagonisttake 1 tablet by mouth once daily ZyrTEC Allergy 10 MG 1 tablet Orally Once a day Activecholecalciferol 5500 unt / vitamin k2 0.2 mg oral tablet (3 sources)Vitamin DStart: 94-36-2948bwqb 137.5-200 ug by mouth once daily Vitamin D3-Vitamin K2 137.5-200 mcg tablet Active 1 TAB PO Daily November 13, 2024 1:00am Complieswith drug therapyFreeStyle Kellen 2 Sensor - (9 sources)FreeStyle Kellen 2 Sensor - USE DIRECTED WITH KELLEN READER TO CHECK GLUCOSE BEFORE A MEAL, EVERY NIGHT AT BEDTIME, AND NEEDED - CHANGE EVERY 14 DAYS for 28 ActiveFreeStyle Kellen 2 Sensor Systm - (18 sources)FreeStyle Kellen 2 Sensor Systm - as directed use with kellen reader change q 14 days, check glucose ac, hs and prn for 84 days ActiveFreeStyle Precision James Test - (20 sources)FreeStyle Precision James Test - use with Freestyle Kellen SQ tid prn ActiveFreeStyle Precision James Test - USE WITH FREESTYLE KELLEN TO TEST THREE TIMES A DAY NEEDED for 90 Active0.2 ml glucagon 5 mg/ml auto-injector (4 sources)Antihypoglycemic AgentStart: 18-27-8528Jlqvz HypoPen 2-Pack 1 MG/0.2ML as directed Subcutaneous prn hypoglycemia may repeat in 15 minutes for 1 days Dec, Active3 ml insulin degludec 100 unt/ml pen injector (2 sources)Insulin AnalogStart: 63-47-7016ufjlyd 31 [IU] by subcutaneous injection once dailyTresiba FlexTouch 100 UNIT/ML 31 units daily if off insulin pump. Must wait 24 hours after last dose before restarting insulin pump Subcutaneous as directed Sep, ActiveInsulin Pump Cart,Automated,Bt (Omnipod 5 G6 Pods (Gen 5)) cartridge (20 sources)Start: 61-39-1396Ociqokq Pump Cart,Automated,Bt (Omnipod 5 G6 Pods (Gen 5)) cartridge Active 0 .ROUTE .COMPLEX August 09, 2024 7:14am use as directed with OMNIPOD SYSTEM - CHANGE every 72 hoursStart: 63-98-6035Lctoiew Pump Cart,Automated,Bt (Omnipod 5 G6 Pods (Gen 5)) cartridge Active 0 .ROUTE .COMPLEX August 09, 2024 8:14am use as directed with OMNIPOD SYSTEM - CHANGE every 72 hoursStart: 04-23-2024 End: 64-20-9980Ichvoqw Pump Cart,Automated,Bt (Omnipod 5 G6 Pods (Gen 5)) cartridge Discontinued 0 .ROUTE .TURSMZM14 April 23, 2024 8:56am August 09, 2024 7:15am use as directed with OMNIPOD SYSTEM - CHANGE every 72 hoursStart: 04-23-2024 End: 42-11-1284Bxhsoff Pump Cart,Automated,Bt (Omnipod 5 G6 Pods (Gen 5)) cartridge Discontinued 0 .ROUTE .EMCDJXL82 April 23, 2024 9:56am August 09, 2024 8:15am use as directed with OMNIPOD SYSTEM - CHANGE every 72 hoursStart: 43-31-5886Rtwpewo Pump Cart,Automated,Bt (Omnipod 5 G6 Pods (Gen 5)) cartridge Active 0 .ROUTE .COMPLEX April 23, 2024 9:56am use as directed with OMNIPOD SYSTEM - CHANGE every 72 hoursStart: 03-23-2024 End: 01-50-9077Jwtlitv Pump Cart,Automated,Bt (Omnipod 5 G6 Pods (Gen 5)) cartridge Discontinued 0 .ROUTE .ROQDVAL25 March 23, 2024 6:36am April 23, 2024 8:56am USE DIRECTED WITH OMNIPOD SYSTEM SUBCUTANEOUSLY - CHANGE EVERY 72 HOURSStart: 03-23-2024 End: 00-89-7868Ffpaofo Pump Cart,Automated,Bt (Omnipod 5 G6 Pods (Gen 5)) cartridge Discontinued 0 .ROUTE .ZEJZZAD44 March 23, 2024 7:36am April 23, 2024 9:56am USE DIRECTED WITH OMNIPOD SYSTEM SUBCUTANEOUSLY - CHANGE EVERY 72 HOURSStart: 02-13-2024 End: 07-07-7636Jmlnmas Pump Cart,Automated,Bt (Omnipod 5 G6 Pods (Gen 5)) cartridge Discontinued 0 .Route 2 February 13, 2024 9:17am March 23, 2024 6:37am As directed Use with OmniPod system SQ, Change every 72 hoursStart: 02-13-2024 End: 07-34-5803Xkrnzoo Pump Cart,Automated,Bt (Omnipod 5 G6 Pods (Gen 5)) cartridge Discontinued 0 .Route 2 February 13, 2024 10:17am March 23, 2024 7:37am As directed Use with OmniPod system SQ, Change every 72 hoursStart: 12-27-2023 End: 74-98-1803Fhceagr Pump Cart,Automated,Bt (Omnipod 5 G6 Pods (Gen 5)) cartridge Discontinued 0 .Route 6 December 27, 2023 3:16pm February 13, 2024 9:19am As directed Use with OmniPod system SQ, Change every 72hoursStart: 12-27-2023 End: 48-70-5048Rqzkqri Pump Cart,Automated,Bt (Omnipod 5 G6 Pods (Gen 5)) cartridge Discontinued 0 .Route 6 December 27, 2023 4:16pm February 13, 2024 10:19am As directed Use with OmniPod system SQ, Change every 72 hoursStart: 64-79-7759Jbwatao Pump Cart,Automated,Bt (Omnipod 5 G6 Pods (Gen 5)) cartridge Active 0 .Route 6 December 27, 2023 4:16pm As directed Use with OmniPod system SQ, Change every 72 hoursStart: 12-27-2023 End: 37-18-9448Ubzvftq Pump Cart,Automated,Bt (Omnipod 5 G6 Pods (Gen 5)) cartridge Discontinued 0 .Route 2023 12:00am December 27, 2023 3:18pm As directedStart: 12-27-2023 End: 80-15-7115Pyomhzi Pump Cart,Automated,Bt (Omnipod 5 G6 Pods (Gen 5)) cartridge Discontinued 0 .Route 2023 1:00am December 27, 2023 4:18pm As directedlevothyroxine sodium 0.15 mg oral tablet (20 sources)l-ThyroxineStart: 01-02-2024 End: 79-83-8718hftt 1 tablet by mouth once dailyLevothyroxine (Synthroid) 150 mcg tablet Active 150 MCG PO Daily February 14, 2025 11:46am Complies with drug therapyStart: 72-82-8355dgop 1 tablet by mouth once daily in the morning Levothyroxine Sodium 150 MCG 1 tablet in the morning on an empty stomach Orally Once a day for 90 day(s) stop levothyroxine 175mcg dose Aug, Active Start: 11-18-2018 End: 53-47-2987blkt 1 tablet by mouth once dailyLevothyroxine (Synthroid) 137 mcg Tablet Discontinued 137 MCG PO Daily November 18, 2018 1:00am January 02, 2024 10:09amLevothyroxine Sodium 137 MCG take 1 tablet by mouth every morning ON AN EMPTY STOMACH Orally Once aday for 90 days Activetake 1 tablet by mouth once daily in the morningLevothyroxine Sodium 175 MCG 1 tablet on an empty stomach in the morning orally daily for 90 day(s)Activelosartan potassium 25 mg oral tablet (20 sources)Angiotensin 2 Receptor BlockerStart: 60-20-8192maiy 1 tablet by mouth once dailyLosartan 25 mg tablet Active 25 MG PO Daily August 13, 2025 3:36pm Complies with drug therapyStart: 12-14-2024 End: 55-90-6041kslf 1 tablet by mouth once dailyLosartan 25 mg tablet Discontinued 0 .ROUTE .COMPLEX December 14, 2024 9:37am August 13, 2025 3:37pm TAKE ONE TABLET BY MOUTH EVERY DAYStart: 01-02-2024 End: 86-55-7871txus 1 tablet by mouth once dailyLosartan 25 mg tablet Discontinued 25 MG PO Daily January 02, 2024 10:27am January 06, 2024 1:26pm Losartan Potassium 25 mg TAKE 1 TABLET DAILY Activemagnesium oxide 400 mg oral capsule (20 sources)Start: 90-20-8714uzrh 1 capsule by mouth once dailyMagnesium Oxide 400 mg Capsule Active 400 MG PO Daily November 18, 2018 1:00am Complies with drug therapytake 1 capsule by mouth once dailyMagnesium Oxide 400 MG 1 capsule Orally Once a day Uxiomk42 hr metoprolol succinate 50 mg extended release oral tablet (20 sources)beta-Adrenergic BlockerStart: 96-87-0511zjgi 1 tablet by mouth once dailyMetoprolol Succinate 50 mg tablet extended release 24 hr Active 50 MG PO Daily November 13, 2024 8:40am Complies with drug therapyStart: 11-05-2024 End: 89-37-7330xzdy 1 tablet by mouth once dailyMetoprolol Succinate 50 mg tablet extended release 24 hr Discontinued 0 .ROUTE .COMPLEX November 05, 2024 10:09am November 13, 2024 8:41am TAKE ONE TABLET BY MOUTH EVERY DAYStart: 01-02-2024 End: 54-50-6430rflp 1 tablet by mouth once dailyMetoprolol Succinate 50 mg tablet extended release 24 hr Discontinued 50 MG PO Daily January 02, 2024 10:29am November 05, 2024 10:09amStart: 11-18-2018 End: 48-43-3439pjfe 1 tablet by mouth once dailyMetoprolol Tartrate 50 mg Tablet Discontinued 50 MG PO Daily November 18, 2018 1:00am January 02, 2024 10:29am Metoprolol Succinate ER 50 mg TAKE 1 TABLET DAILY (NEEDS AN APPOINTMENT IN 2021) Activeomeprazole 40 mg delayed release oral capsule (20 sources)Proton Pump InhibitorStart: 67-31-4909bhsu 1 capsule by mouth once dailyOmeprazole 40 mg capsule,delayed release(DR/EC) Active 40 MG PO Daily August 13, 2025 12:00amComplies with drug therapyStart: 11-13-2024 End: 15-25-4925cstp 1 capsule by mouth once dailyOmeprazole 20 mg capsule,delayed release(DR/EC) Discontinued 20 MG PO Daily November 13, 2024 8:41am August 13, 2025 4:32pmStart: 11-12-2024 End: 27-61-3277ssnu 1 capsule by mouth once dailyOmeprazole 20 mg capsule,delayed release(DR/EC) Discontinued 0 .ROUTE .COMPLEX November 12, 2024 2:26pm November 13, 2024 8:41am TAKE ONE CAPSULE BY MOUTH EVERY DAYStart: 11-18-2018 End: 70-67-6096brwr 1 tablet by mouth once dailyOmeprazole 20 mg tablet,delayed release (DR/EC) Discontinued 20 MG PO Daily January 02, 2024 10:30am January 06, 2024 1:26pmtake 1 capsule by mouth every twenty-four hoursOmeprazole 20 MG 1 capsule Orally Once a day ActiveOmnipod 5 G6 Pod (Gen 5) - (19 sources)Start: 70-58-0011Bxccebw 5 G6 Pod (Gen 5) - Use with OmniPod 5 system SQ Change every 72 hours for 90 day(s) E11.8 May, ActiveOmnipod 5 G6 Pod (Gen 5) - Use with OmniPod 5 system SQ Change every 72 hours for 90 day(s) ActivepredniSONE 20 mg oral tablet (5 sources)Start: 35-82-4731dufo 1 tablet by mouth every twelve hourspredniSONE 20 MG 1 tablet Orally 2 times a day for 5 day(s) Jul, Activevitamin b12 1 mg oral capsule (8 sources)Vitamin R38Khhuu: 19-29-2760ydtl 1 capsule by mouth once daily Cyanocobalamin (Vitamin B-12) 1,000 mcg capsule Active 1000 MCG PO daily January 12, 2024 12:00am Complies with drug therapyVitamin D 2000 UNIT (20 sources)Vitamin D 2000 UNIT Orally ActiveVitamin D 2000 UNIT Orally Not-Taking Completed/Discontinued Medications MedicationDrug Class(es)DatesSig (Normalized)Sig (Original)acetaminophen 325 mg / HYDROcodone bitartrate 5 mg oral tablet (12 sources)Opioid AgonistStart: 11-18-2018 End: 24-96-7060kqec 1 tablet by mouth every four hours as needed for pain Hydrocodone-Acetaminophen ([place]) 5-325 mg tablet Discontinued 1 TAB PO Q4H as needed for pain 10 2January 2018December 25, 2018 7:53pmamoxicillin 875 mg oral tablet (12 sources)Penicillin-class AntibacterialStart: 12-12-2018 End: 14-06-9359hjfu 1 tablet by mouth twice dailyAmoxicillin 875 mg Tablet Discontinued 875 MG PO Twice daily December 12, 2018 1:00am December 25, 2018 7:53pmB-12 - up to 1000 mcg (20 sources)Start: 46-72-5103G-12 - up to 1000 mcg Jan, 1biotin 1 mg oral capsule (14 sources)Start: 11-18-2018 End: 59-95-6146unaw 1 capsule by mouth once dailyBiotin 1 mg Capsule Discontinued 1 MG PO Daily November 18, 2018 1:00am January 12, 2024 7:57am12 hr cetirizine hydrochloride 5 mg / pseudoephedrine hydrochloride 120 mg extended release oral tablet (20 sources)alpha-Adrenergic Agonist, Histamine-1 Receptor AntagonistStart: 01-06-2024 End: 99-40-8188isjc 1 tablet by mouth every twelve hours as neededCetirizine- Pseudoephedrine 5-120 mg tablet extended release 12 hr Discontinued 1 TAB PO Once as needed for allergy symptoms January 06, 2024 12:26pm May 01, 2024 6:38amStart: 01-06-2024 End: 35-54-9882wojd 1 tablet by mouth onceCetirizine-Pseudoephedrine Discontinued 1 TAB PO Once January 06, 2024 1:26pm May 01, 2024 7:38amStart: 80-95-6621ztxz 1 tablet by mouth onceCetirizine-Pseudoephedrine Active 1 TAB PO Once January 06, 2024 1:26pmStart: 01-02-2024 End: 68-63-6649gmtt 1 tablet by mouth every twelve hours as neededCetirizine- Pseudoephedrine 5-120 mg tablet extended release 12 hr Discontinued 1 TAB PO Once as needed for allergy symptoms January 02, 2024 9:27am January 06, 2024 12:26pmStart: 01-02-2024 End: 98-02-3824oeez 1 tablet by mouth onceCetirizine-Pseudoephedrine Discontinued 1 TAB PO Once January 02, 2024 10:27am January 06, 2024 1:26pm Start: 01-02-2024 End: 28-54-1074elnu 1 tablet by mouth every twelve hours as neededCetirizine- Pseudoephedrine 5-120 mg tablet extended release 12 hr Discontinued 1 TAB PO Once as needed for allergy symptoms January 02, 2024 10:27am January 06, 2024 1:26pmStart: 01-02-2024 End: 88-49-1003khfm 1 tablet by mouth every twelve hours as neededCetirizine- Pseudoephedrine 5-120 mg tablet extended release 12 hr Discontinued 1 TAB PO Once as needed for allergy symptoms January 02, 2024 12:00am January 02, 2024 9:29amStart: 01-02-2024 End: 71-79-8939pvpv 1 tablet by mouth onceCetirizine-Pseudoephedrine Discontinued 1 TAB PO Once January 02, 2024 1:00am January 02, 2024 10:29am cholecalciferol 0.05 mg oral capsule (14 sources)Vitamin DStart: 11-18-2018 End: 02-14-6209nfwo 1 capsule by mouth once dailyCholecalciferol (Vitamin D3) (Vitamin D3) 2,000 unit Capsule Discontinued 2000 UNIT PO Daily November 18, 2018 1:00am November 13, 2024 8:40amcranberry preparation 250 mg oral capsule (20 sources)Non-Standardized Food Allergenic Extract, Non-Standardized Plant Allergenic ExtractCranberry 250 MG Orally prn PRN Not-TakingCranberry 250 MG Orally prn PRN ActiveCranberry 250 MG Orally prn PRN Activecyclobenzaprine hydrochloride 10 mg oral tablet (14 sources)Muscle RelaxantStart: 11-18-2018 End: 55-01-7140wgqy 1 tablet by mouth three times daily as needed for muscle spasmsCyclobenzaprine 10 mg tablet Discontinued 10 MG PO Three times daily as needed for muscle spasm November 18, 2018 1:00am January 02, 2024 10:06am diclofenac sodium 0.01 mg/mg topical gel (12 sources)Nonsteroidal Anti-inflammatory DrugStart: 12-12-2018 End: 39-83-8245Qdsbgxzznx Sodium (Voltaren) 1 % gel Discontinued 4 GM TOPICAL Four times daily as needed for pain 100 December 12, 2018 1:00am December 25, 2018 7:53pm Apply to R knee for pain (max 16 gr per day)FreeStyle Kellen 2 [place] - (17 sources)Start: 88-29-9267OddqRuaon Kellen 2 [place] - as directed In Vitro Daily for 365 days May, Not-TakingStart: 88-53-8004FbjbSrxgr Kellen 2 [place] - as directed In Vitro Daily for 365 days May, Activeinsulin lispro 100 unt/ml injectable solution (20 sources)Insulin AnalogStart: 01-12-2024 End: 24-17-0122zvbwhu 90 [IU] by subcutaneous injection once dailyInsulin Lispro (Humalog U-100 Insulin) 100 unit/mL solution Discontinued 0 SUBCUT .COMPLEX 90 August 09, 2024 8:14am September 06, 2024 3:33pm 90 units insulin pump daily Subcutaneous As Directed;Start: 12-12-2018 End: 67-56-1612Kwteyyf Lispro (Humalog U-100 Insulin) 100 unit/mL Cartridge Discontinued December 12, 2018 1:00am January 12, 2024 7:54aminject 90 [IU] by subcutaneous injection once dailyHumaLOG 100 UNIT/ML 90 units insulin pump daily Subcutaneous As Directed for 90 days Activeinject 100 [IU] by subcutaneous injection once dailyHumaLOG 100 UNIT/ML 100 units/day insulin pump SQ as directed for 90 day(s) Activeinject 100 [IU] by subcutaneous injection once Humalog U100 100 units/day per Pump SQ daily for 90 day(s) Activeinject 100 [IU] by subcutaneous injection onceHumalog U100 100 units/day per Pump SQ daily ActiveInsulin Lispro (Humalog U-100 Insulin) 100 unit/mL solution (6 sources)Start: 01-12-2024 End: 02-12-9565dlpyrt 90 [IU] by subcutaneous injection once dailyInsulin Lispro (Humalog U-100 Insulin) 100 unit/mL solution Discontinued 0 SUBCUT .COMPLEX January 11, 2024 11:00pm August 09, 2024 7:15am 90 units insulin pump daily Subcutaneous As Directed;Start: 01-12-2024 End: 35-96-6179ppzmtr 90 [IU] by subcutaneous injection once dailyInsulin Lispro (Humalog U-100 Insulin) 100 unit/mL solution Discontinued 0 SUBCUT .COMPLEX January 12, 2024 12:00am August 09, 2024 8:15am 90 units insulin pump daily Subcutaneous As Directed;Start: 42-53-5676ahhhzk 90 [IU] by subcutaneous injection once dailyInsulin Lispro (Humalog U-100 Insulin) 100 unit/mL solution Active 0 SUBCUT .COMPLEX January 12, 2024 12:00am 90 units insulin pump daily Subcutaneous As Directed;lisinopril 10 mg oral tablet (14 sources)Angiotensin Converting Enzyme InhibitorStart: 11-18-2018 End: 86-68-5096uszh 1 tablet by mouth once dailyLisinopril 10 mg Tablet Discontinued 10 MG PO Daily November 18, 2018 1:00am January 02, 2024 10:09am Omnipod 5 G6 Intro (Gen 5) - (13 sources)Start: 32-36-2060Fvqjjpz 5 G6 Intro (Gen 5) - Use with OmniPod 5 system SQ once for 365 days E11.8 May, Not-TakingStart: 06-29-2022 Omnipod 5 G6 Intro (Gen 5) - Use with OmniPod 5 system SQ once for 365 days E11.8 May, Activepromethazine hydrochloride 25 mg oral tablet (20 sources)PhenothiazineStart: 12-25-2018 End: 59-33-2848cjlw 1 tablet by mouth every six hours as needed for nausea Promethazine 25 mg Tablet Discontinued 25 MG PO Q6H as needed for Nausea December 25, 2018 1:00am January 02, 2024 10:09amStart: 05-02-6813fnrq 1 tablet by mouth every twelve hoursPromethazine HCl 25 MG 1 tablet as needed Orally every 12 hrs for 30 day(s) PRN February, Not-TakingTirzepatide (16 sources)Start: 01-12-2024 End: 47-60-2180Vciaidcakdb (Mounjaro) 2.5 mg/0.5 mL pen injector Discontinued 2.5 MG SUBCUT every week December 6:57am May 01, 2024 6:39amStart: 01-12-2024 End: 96-54-8917Veuyrrwqpyd (Mounjaro) 2.5 mg/0.5 mL pen injector Discontinued 2.5 MG SUBCUT every week December 7:57am May 01, 2024 7:39amStart: 11-42-4376Tvsldvpyuzw (Mounjaro) 2.5 mg/0.5 mL pen injector Active 2.5 MG SUBCUT every week January 12, 2024 7:57amStart: 01-02-2024 End: 43-73-0803vbqeev 2.5 mg by subcutaneous injection every weekTirzepatide (Mounjaro) 2.5 mg/0.5 mL pen injector Discontinued 2.5 MG SUBCUT January 02, 2024 12:00am January 12, 2024 6:59am FreeTextSi.5mg Subcutaneous once weekly; Note: Source Status: sample glenda in office; Provider: Lacy Joseph KStart: 01-02-2024 End: 46-54-1446nbmuiv 2.5 mg by subcutaneous injection every weekTirzepatide (Mounjaro) 2.5 mg/0.5 mL pen injector Discontinued 2.5 MG SUBCUT January 02, 2024 1:00amMa2023 7:59am FreeTextSi.5mg Subcutaneous once weekly; Note: Source Status: sample glenda in office; Provider: Lacy Renteria{10 (nirmatrelvir 150 MG Oral Tablet) / 10 (ritonavir 100 MG Oral Tablet) } Pack [Paxlovid 150 MG /100 MG Dose Pack] (1 source)Start: 95-98-8144yszn 1 dose by mouth twice dailyPaxlovid (150/100) 10 x 150 MG & 10 x 100MG 1 dose Orally twice a day for 5 days 13 Mar, 2023 No t-Taking Problems Active Problems Problem ClassificationProblemDateDocumented DateEpisodic/Chronic Administrative/social admission (20 sources)Dietary counseling and surveillance; Translations: [Patient encounter status]Onset: 10-14-2021 Resolved: 45-35-3361BbnmcckjQyqwcpv kidney disease (20 sources)Chronic kidney disease stage 3; Translations: [Chronic kidney disease, stage 3 (moderate)]ChronicChronic kidney disease (1 source)Chronic kidney disease; Translations: [Chronic kidney disease, stage 3a]Onset: 59-93-0379Qhtixroqgy and other anemia (20 sources)Anemia of renal disease; Translations: [Anemia in chronic kidney disease]72-86-7759BehbrhgCpxtguuv mellitus with complications (20 sources)Disorder due to type 2 diabetes mellitus; Translations: [Type 2 diabetes mellitus with unspecified complications]Onset: 10-14-2021 Resolved: 57-86-8961DptrwlvLinbiiwo mellitus without complication (20 sources)Patient encounter status; Translations: [Encounter for fitting and adjustment of insulin pump]Onset: 10-14-2021 Resolved: 44-25-6021JmuxktxRuuocvfk mellitus without complication (20 sources)Insulin pump present; Translations: [Presence of insulin pump (external) (internal)]52-96-6631HfugbikhZdbzghkk mellitus without complication (1 source)Diabetes mellitus without complication; Translations: [Type 2 diabetes mellitus with diabetic chronic kidney disease]Onset: 53-30-1858Vnvrjewqu of lipid metabolism (20 sources)Hyperlipidemia; Translations: [Hyperlipidemia, unspecified]Onset: 10-14-2021 Resolved: 04-69-2104KxtpgsiOgtrtmjir hypertension (20 sources)Essential hypertension; Translations: [Essential (primary) hypertension]Onset: 10-14-2021 Resolved: 71-33-7278JollqreHcecetwzgblo with complications and secondary hypertension (20 sources)Hypertensive renal disease; Translations: [Hypertensive chronic kidney disease with stage 1 throughstage 4 chronic kidney disease, or unspecified chronic kidney disease]18-79-8695EvxdvsiBnrdcnajcsr deficiencies (20 sources)Vitamin D deficiency; Translations: [Vitamin D deficiency, unspecified]24-11-0813KqlijucRvlzovpymgy deficiencies (6 sources)Deficiency of other specified B group vitaminsOnset: 10-14-2021 Resolved: 29-34-8680QowsxcecHwotc aftercare (20 sources)Long-term current use of insulin; Translations: [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]44-63-2329BmteveejHqedj aftercare (7 sources)USP (current) use of insulin; Translations: [USP (current) use of insulin]Onset: 10-14-2021 Resolved: 67-36-8988HchjjosqCwpxa connective tissue disease (1 source)Pain in right toe(s)EpisodicOther diseases of kidney and ureters (20 sources)Secondary hyperparathyroidism; Translations: [Secondary hyperparathyroidism of renal origin]98-12-2908JxephqcNxxwj endocrine disorders (10 sources)Hypoglycemia; Translations: [Hypoglycemia, unspecified]ChronicOther endocrine disorders (3 sources)Hypoglycemia, unspecifiedChronicOther nutritional; endocrine; and metabolic disorders (20 sources)Obese class I; Translations: [Body mass index (BMI) 33.0-33.9, adult]ChronicOther nutritional; endocrine; and metabolic disorders (20 sources)Obese class II; Translations: [Body mass index (BMI) 35.0-35.9, adult]ChronicOther nutritional; endocrine; and metabolic disorders (20 sources)Body mass index 30+ - obesity; Translations: [Body mass index (BMI) 32.0-32.9, adult]86-26-5288SprlgcvZkbzv nutritional; endocrine; and metabolic disorders (20 sources)Obesity; Translations: [Obesity, unspecified]ChronicOther nutritional; endocrine; and metabolic disorders (5 sources)Body mass index (BMI) 32.0-32.9, adultOnset: 10-14-2021 Resolved: 20-37-0289SbbziyrXbwmb nutritional; endocrine; and metabolic disorders (3 sources)Body mass index (BMI) 33.0-33.9, adult; Translations: [Body Mass Index 33.0-33.9, adult]ChronicOther nutritional; endocrine; and metabolic disorders (3 sources)Body mass index (BMI) 34.0-34.9, adult; Translations: [Body Mass Index 34.0-34.9, adult]01-76-6270BmgwmgfFpovm nutritional; endocrine; and metabolic disorders (3 sources)Overweight in adulthood with body mass index of 25 or more but less than 30; Translations: [Body mass index (BMI) 29.0-29.9, adult]06-05-2025 EpisodicOther screening for suspected conditions (not mental disorders or infectious disease) (10 sources)Patient encounter status; Translations: [Encounter for screening mammogram for malignant neoplasm of breast]Onset: [id number] Superficial injury; contusion (1 source)Contusion of right great toe without damage to nail, initial encounter EpisodicThyroid disorders (20 sources)Hypothyroidism; Translations: [Hypothyroidism, unspecified]Onset: 10-14-2021 Resolved: 44-21-0464Vakuwet Past or Other Problems Problem ClassificationProblemDateDocumented DateEpisodic/ChronicAllergic reactions (1 source)Unspecified contact dermatitis, unspecified causeOnset: 07-07-2022 Resolved: 07-04-7570FzglirdnLlfyzrcvhfvjq symptoms and ill-defined conditions (1 source)Proteinuria, unspecifiedOnset: 05-24-2022 Resolved: 00-23-8239Cdvollou Results Test NameValueInterpretationReference AegojSjyragqnVdI6t HPLC (Bld) [Mass fraction]Ordered By: Jake House on 92-35-6570YoF9e (Bld) [Mass fraction]7.2 % [facility] HospitalNo Panel InformationOrdered By: Jake House on 89-65-5023Uchykdc Afrjpmg021ZkqbfxyvvSt. Francis HospitalBasic Metabolic Panelon 13-64-0643JKX/1.73 sq M.predicted MDRD (S/P/Bld) [Vol rate/Area] mL/min/{1.73_m2}NormalThe Unc Health Caldwell Physician GroupComment on above:Performed By: #### LIPID, CMP, TSH3 wRFLX, URMACRERAT #### [facility] [address] [place] [address] USACalcium [Mass/volume] in Serum or PlasmaOrdered By: Jake House on 88-34-7770Svuvlru [Mass/Vol]9.0 mg/dLNormal8.6-10.3FMercy Health St. Charles HospitalComment on above:Result Comment: PERFORMED BY: [place] [address] PATHOLOGIST HEEL SHAVER ELE BARRERA M.D.Performed By: #### LIPID, CMP, TSH3 wRFLX, URMACRERAT #### [facility] [address] [place] [address] USACalcium [Mass/Vol]Calcium [Mass/volume] in Serum or Plasma 8.6-10.3FMercy Health St. Charles HospitalCarbon dioxide, total [Moles/volume] in Serum or PlasmaOrdered By: Tondra Mapus on 81-84-3783JE6 [Moles/Vol]28.4 mmol/L Ojfggl62.0-31.0St. [facility] HospitalComment on above:Performed By: #### LIPID, CMP, TSH3 wRFLX, URMACRERAT #### [place] [address] USACO2 [Moles/Vol]Carbon dioxide, total [Moles/volume] in Serum or Micqpi82.0-31.0St. [facility] HospitalChloride [Moles/volume] in Serum or PlasmaOrdered By: Tondra Mapus on 01-74-8055Yqpyxhmo [Moles/Vol]104 mmol/URufapd09-611KrjmgcardSt. Francis HospitalComment on above:Performed By: #### LIPID, CMP, TSH3 wRFLX, URMACRERAT #### [place] [id number] USAChloride [Moles/Vol]Chloride [Moles/volume] in Serum or Xoxmsm18-174LdlvbnquvSt. Francis HospitalCreatinine [Mass/volume] in Serum or PlasmaOrdered By: Tondra Mapus on 53-34-1758Nnmhstyghf [Mass/Vol]1.04 mg/dL Normal0.60-1.20St. Francis HospitalComment on above:Performed By: #### LIPID, CMP, TSH3 wRFLX, URMACRERAT #### [place] [id number] USACreatinine [Mass/Vol]Creatinine [Mass/volume] in Serum or Plasma0.60-1.20St. [facility] HospitalGlucose [Mass/volume] in Serum or PlasmaOrdered By: Jake House on 84-36-3599Opxhxob [Mass/Vol]161 mg/dLRiver Park Hospital 70-100St. [facility] HospitalComment on above:ADA recommended reference rangeRandom Glucose Reference Range is dependent on time and content of last meal. Glucose of more than 200 mg/dL in a nonstressed, ambulatory subject supports the diagnosisof Diabetes Mellitus.Result Comment: Random Glucose Reference Range is dependent on time and content of last meal. Glucose of more than 200 mg/dL in a nonstressed, ambulatory subject supports the diagnosis of Diabetes Mellitus. ADA recommended reference rangePerformed By: #### LIPID, CMP, TSH3 wRFLX, URMACRERAT #### [facility] [address] [place] [address] USAGlucose [Mass/Vol]Glucose [Mass/volume] in Serum or Plasma Yfxp27-276Ovwcrvijw[address] [place], [place] [address]Comment on above:ADA recommended reference rangeRandom Glucose Reference Range is dependent on time and content of last meal. Glucose of more than 200 mg/dL in a nonstressed, ambulatory subject supports the diagnosisof Diabetes Mellitus.No Panel InformationOrdered By: Jake House on 36-82-2513Zczqaejbj GFR (CKD-EPI)> 60.0 mL/MinSt. Francis HospitalPharmacy Creatinine Clearance (ChemN/[facility] HospitalPotassium [Moles/volume] in Serum or PlasmaOrdered By: Jake House on 20-74-0593Dyiowfxiv [Moles/Vol]4.9 mmol/LNormal3.5-5.1FMercy Health St. Charles HospitalComment on above:Performed By: #### LIPID, CMP, TSH3 wRFLX, URMACRERAT #### [facility] [address] [place] [address] USAPotassium [Moles/Vol]Potassium [Moles/volume] in Serum or Plasma3.5-5.1FPremier Health Atrium Medical Centererum or plasma anion gap determinationOrdered By: Jake House on 40-17-7471Vkhrm gap [Moles/Vol]10.5 mmol/LNormal6.0-15.0St. [facility] HospitalComment on above:Performed By: #### LIPID, CMP, TSH3 wRFLX, URMACRERAT #### [facility] [address] [place] [address] USAAnion gap [Moles/Vol]Serum or plasma anion gap determination6.0-15.0[facility] Hospitalodium [Moles/volume] in Serum or PlasmaOrdered By: Jake House on 95-02-2730Nocbqz [Moles/Vol]138 mmol/GPzpzcv319-022QcdalnxmjSt. Francis HospitalComment on above:Performed By: #### LIPID, CMP, TSH3 wRFLX, URMACRERAT #### [facility] [address] [place] [address] USASodium [Moles/Vol]Sodium [Moles/volume] in Serum or Plasma 136-145St. Francis HospitalUrea nitrogen [Mass/volume] in Serum or PlasmaOrdered By: Jake House on 51-58-9511Mrjl nitrogen [Mass/Vol]22 mg/dL Normal7St. Francis HospitalComment on above:Performed By: #### LIPID, CMP, TSH3 wRFLX, URMACRERAT #### [facility] [address] [place] [address] USAUrea nitrogen [Mass/Vol]Urea nitrogen [Mass/volume] in Serum or Plasma-St. Francis HospitalHbA1c HPLC (Bld) [Mass fraction]on 45-50-7657TeC8d (Bld) [Mass fraction]7.2 %[facility]. [facility] HospitalNo Panel Informationon 81-10-4453Xzozsjm Grlkwdb048QxfqhhqftSt. Francis HospitalAlanine aminotransferase [Enzymatic activity/volume] in Serum or PlasmaOrdered By: Jake House on 15-56-4237VCM [Catalytic activity/Vol]16 U/L Normal7-52St. Francis HospitalComment on above:Performed By: #### LIPID, CMP, TSH3 wRFLX, URMACRERAT #### [facility] [address] [place] [address] USAAlbumin [Mass/volume] in Serum or Plasma by Bromocresol green (BCG) dye binding methoOrdered By: Tondra Mapus on 52-25-0142Hfvxbdq BCG dye [Mass/Vol]3.7 g/dL3.5-5.7FMercy Health St. Charles HospitalAlkaline phosphatase [Enzymatic activity/volume] in Serum or PlasmaOrdered By: Tondra Mapus on 90-97-9206POP [Catalytic activity/Vol]75 U/HAofkuq72-425CeewonlkzSt. Francis HospitalComment on above:Performed By: #### LIPID, CMP, TSH3 wRFLX, URMACRERAT #### [facility] [address] [place] [address] USAAspartate aminotransferase [Enzymatic activity/volume] in Serum or PlasmaOrdered By: Tondra Mapus on 01-80-1742RVR [Catalytic activity/Vol]17 U/BZamkxj76-37FddsrpjrbSt. Francis HospitalComment on above: Performed By: #### LIPID, CMP, TSH3 wRFLX, URMACRERAT #### [facility] [address] [place] [address] USABilirubin.total [Mass/volume] in Serum or PlasmaOrdered By: Tondra Mapus on 52-75-8236Uwkgmiwqe [Mass/Vol]0.6 mg/dLNormal0.3-1.0 [facility] [facility] HospitalComment on above:Performed By: #### LIPID, CMP, TSH3 wRFLX, URMACRERAT #### [facility] [address] [place] [address] USACalcium [Mass/volume] in Serum or PlasmaOrdered By: Tondra Mapus on 64-42-6880Tubjjur [Mass/Vol]9.2 mg/dLNormal8.6-10.3FMercy Health St. Charles HospitalComment on above:Performed By: #### LIPID, CMP, TSH3 wRFLX, URMACRERAT #### [facility] [address] [place] [address] USACarbon dioxide, total [Moles/volume] in Serum or Plasma Ordered By: Jake House on 43-78-4927VF2 [Moles/Vol]28.2 mmol/FKtdbxg19.0-31.0 [facility] [facility] HospitalComment on above:Performed By: #### LIPID, CMP, TSH3 wRFLX, URMACRERAT #### [facility] [address] [place] [address] USAChloride [Moles/volume] in Serum or PlasmaOrdered By: Tondra Peaceus on 31-39-3283Lokcoipu [Moles/Vol]105 mmol/BDkvegv47-095IuwwkalboSt. Francis HospitalComment on above:Performed By: #### LIPID, CMP, TSH3 wRFLX, URMACRERAT #### [facility] [address] [place] [address] USACholesterol [Mass/volume] in Serum or PlasmaOrdered By: Jake House on 81-07-4616Acpazhhczwp [Mass/Vol]158 mg/jAEaqkwx710-573TveroblbnSt. Francis HospitalComment on above:Chol less than 200 mg/dl low riskChol 201-239 mg/dl borderline riskChol 240 mg/dl and greater high riskResult Comment: Chol less than 200 mg/dl low risk Chol 201-239 mg/dl borderline risk Chol 240 mg/dl and greater high riskPerformed By: #### LIPID, CMP, TSH3 wRFLX, URMACRERAT #### [facility] [address] [place] [id number] USACholesterol in LDL Calc [Mass/Vol]Ordered By: Jake House on 83-94-0336Uzwayjlsshf in LDL [Mass/Vol]88 mg/dL0-100St. Francis HospitalComment on above:LDL ATP III CLASSIFICATIONLDL less than 100 mg/dL OptimalLDL 100-129 mg/dL Near or above kmsgslsKZI023-166 mg/dL Borderline highLDL 160-189 mg/dL HighLDL greater than 189 mg/dL Very highCholesterol in VLDL Calc [Mass/Vol]Ordered By: Kaina Lacy on 95-24-1391Drokiygbngk in VLDL [Mass/Vol]12 mg/dLSt. Francis HospitalComprehensive Metabolic Panel on 60-38-9109Zkdhhfi [Mass/Vol]3.7 g/dLNormal3.5-5.7The Un[facility] Health Caldwell Physician GroupComment on above:Performed By: #### LIPID, CMP, TSH3 wRFLX, URMACRERAT #### [facility] [address] [place] [address] USAGFR/1.73 sq M.predicted MDRD (S/P/Bld) [Vol rate/Area] 53.458 mL/min/{1.73_m2}NormalThe Un[facility] Caldwell Physician GroupComment on above: Performed By: #### LIPID, CMP, TSH3 wRFLX, URMACRERAT #### [facility] [address] [place] [address] USACreatinine [Mass/volume] in Serum or PlasmaOrdered By: Jake House on 29-17-2827Mudrlmtczf [Mass/Vol]1.20 mg/dLNormal0.60-1.20 [facility] [facility] HospitalComment on above:Performed By: #### LIPID, CMP, TSH3 wRFLX, URMACRERAT #### [facility] [address] [place] [id number] USACreatinine [Mass/volume] in UrineOrdered By: Jake House on 26-99-1946Fonxifevyo (U) [Mass/Vol]126.00 mg/dLSt. Francis HospitalComment on above:No reference range establishedGlucose [Mass/volume] in Serum or PlasmaOrdered By: Jake House on 81-79-7333Wtifqvn [Mass/Vol]138 mg/dL Qgzz59-298GtriokhvdSt. Francis HospitalComment on above:ADA recommended reference rangeRandom Glucose Reference Range is dependent on time and content of last meal. Glucose of more than 200 mg/dL in a nonstressed, ambulatory subject supports the diagnosisof Diabetes Mellitus.Result Comment: Random Glucose Reference Range is dependent on time and content of last meal. Glucose of more than 200 mg/dL in a nonstressed, ambulatory subject supports the diagnosis of Diabetes Mellitus. ADA recommended reference rangePerformed By: #### LIPID, CMP, TSH3 wRFLX, URMACRERAT #### [facility] [address] [place] [id number] USALipid Panelon 54-48-8498SAP Cholesterol,Dofrjavxrf99 mg/dL Normal0-100The [facility]dwell Physician GroupComment on above:Result Comment: LDL ATP III CLASSIFICATION LDL less than 100 mg/dL Optimal LDL 100-129 mg/dL Near or above optimal LDL 130-159 mg/dL Borderline high LDL 160-189 mg/dL High LDL greater than 189 mg/dL Very highPerformed By: #### LIPID, CMP, TSH3 wRFLX, URMACRERAT #### [facility] [address] [place] [address] USATriglyceride w/Hwovhz05 mg/dLNormal0-149The [facility]dwell Physician GroupComment on above:Result Comment: TRIG ATP III CLASSIFICATION TRIG less than 150 mg/dL Normal TRIG 150-199 mg/dL Borderline high TRIG 200-500 mg/dL High TRIG greater than 500 mg/dL Very high Standard traceable to the Center for Disease Conrtrol and Prevention (CDC) test method.Performed By: #### LIPID, CMP, TSH3 wRFLX, URMACRERAT #### [place] [address] USAVLDL FXRGYVCVPXB75 mg/dLNormBaptist Medical Center Beaches Physician GroupComment on above:Performed By: #### LIPID, CMP, TSH3 wRFLX, URMACRERAT #### [place] [address] USAMicroAlb Creat Ratio,Uon 41-89-1196Pypizqqkbm, Urine (Random)126.00 mg/dLNormBaptist Medical Center Beaches Physician GroupComment on above:Result Comment: No reference range establishedPerformed By: #### LIPID, CMP, TSH3 wRFLX, URMACRERAT #### [place] [address] USAMicroalbumin/Creatinine RatioNot performedNormal0.0-30.0 The [facility]dwell Physician GroupComment on above:Result Comment: PERFORMED BY: [place] [address] PATHOLOGIST HEEL SHAVER ELE BARRERA M.D.Performed By: #### LIPID, CMP, TSH3 wRFLX, URMACRERAT #### [facility] [address] [place] [address] USAMicroalbumin [Mass/volume] in UrineOrdered By: Tondra Mapus on 12-17-9165Jlygbjf DL <= 20 mg/L (U) [Mass/Vol]mg/dLNormal0.0-1.8 [facility] HospitalComment on above:Performed By: #### LIPID, CMP, TSH3 wRFLX, URMACRERAT #### [facility] [address] [place] [address] USANo Panel InformationOrdered By: Tondra Mapus on 08-04-2024 Estimated GFR (CKD-EPI)53.458 mL/MinSt. Francis HospitalPharmacy Creatinine Clearance (ChemN/[facility] HospitalPotassium [Moles/volume] in Serum or PlasmaOrdered By: Tondra Mapus on 88-58-5647Esirbnopj [Moles/Vol]5.0 mmol/LNormal3.5-5.1FMercy Health St. Charles HospitalComment on above:Performed By: #### LIPID, CMP, TSH3 wRFLX, URMACRERAT #### [facility] [address] [place] [address] USAProtein [Mass/volume] in Serum or PlasmaOrdered By: Tondra Mapus on 00-75-0354Mmxmrki [Mass/Vol]6.9 g/dLNormal6.4-8.9St. Francis HospitalComment on above:Performed By: #### LIPID, CMP, TSH3 wRFLX, URMACRERAT #### [facility] [address] [place] [address] USASerum globulin measurement by calculation (mass/volume) Ordered By: Tondra Mapus on 42-70-9808Pqpasdfq (S) [Mass/Vol]3.2 g/dLNormal St. Francis HospitalComment on above:Performed By: #### LIPID, CMP, TSH3 wRFLX, URMACRERAT #### [facility] [address] [place] [address] USASerum or plasma albumin/globulin mass ratioOrdered By: Jake House on 17-79-1939Ooyctlh/Globulin [Mass ratio]1.2 {ratio}Normal St. Francis HospitalComment on above:Performed By: #### LIPID, CMP, TSH3 wRFLX, URMACRERAT #### [facility] [address] [place] [id number] USASerum or plasma anion gap determinationOrdered By: Jake House on 71-19-8753Qklnn gap [Moles/Vol]8.8 mmol/LNormal6.0-15.0St. [facility] HospitalComment on above:Performed By: #### LIPID, CMP, TSH3 wRFLX, URMACRERAT #### [facility] [address] [place], [place] [id number] USASerum or plasma high density lipoprotein (HDL) cholesterol measurementOrdered By: Jake House on 20-21-5770Obowzwoctnd in HDL [Mass/Vol] 57 mg/oFXpuiwe48-47FbkgzouczSt. Francis HospitalComment on above:HDL CHOL ATP-III CLASSIFICATION Cardiovascular RiskHDL > or equal to 60 mg/dL LOWHDL < 40 mg/dL HIGHResult Comment: HDL CHOL ATP-III CLASSIFICATION Cardiovascular Risk HDL > or equal to 60 mg/dL LOW HDL < 40 mg/dL HIGHPerformed By: #### LIPID, CMP, TSH3 wRFLX, URMACRERAT #### [facility] [address] [place], [place] [id number] USASerum or plasma total cholesterol/high density lipoprotein (HDL) cholesterol mass ratOrdered By: Jake House on 08-04-2024 Cholesterol.total/Cholesterol in HDL [Mass ratio]2.8 {ratio}Normal<5.0St. Francis HospitalComment on above:Performed By: #### LIPID, CMP, TSH3 wRFLX, URMACRERAT #### [facility] [address] [place] [address] USASodium [Moles/volume] in Serum or PlasmaOrdered By: Kaina Mapus on 98-88-6568Ywinry [Moles/Vol]137 mmol/JXsazfw203-494XbbwmpxzxSt. Francis HospitalComment on above:Performed By: #### LIPID, CMP, TSH3 wRFLX, URMACRERAT #### [place] [address] USAThyroid Stim Hormone w/Rflxon 72-64-1167Ytnprzl Stim Hormone w/Rflx0.18 u[iU]/mLLow0.45-5.33The [facility] Physician GroupComment on above:Result Comment: PERFORMED BY: [place] [address] PATHOLOGIST HEEL SHAVER ELE BARRERA M.D.Performed By: #### LIPID, CMP, TSH3 wRFLX, URMACRERAT #### [place] [id number] USAThyrotropin [Units/volume] in Serum or PlasmaOrdered By: Tondra Mapus on 15-78-6137ZNS Qn0.18 m[IU]/LLow0.45-5.33St. Francis HospitalThyroxine (T4) free [Mass/volume] in Serum or PlasmaOrdered By: Tondra Mapus on 71-84-7635Ejyb T4 [Mass/Vol]1.36 ng/dLHigh0.61-1.12St. Francis HospitalComment on above:Performed By: #### LIPID, CMP, TSH3 wRFLX, URMACRERAT #### [place] [id number] USATriglyceride [Mass/volume] in Serum or PlasmaOrdered By: Tondra Mapus on 59-93-6721Ufykfsoexbna [Mass/Vol]64 mg/dL0-149St. Francis HospitalComment on above:TRIG ATP III CLASSIFICATIONTRIG less than 150 mg/dL NormalTRIG 150-199 mg/dL Borderline highTRIG 200-500 mg/dL High TRIG greater than 500 mg/dL Very highStandard traceable to the Center for Disease Co nrtrol and Prevention (CDC) test method.Urea nitrogen [Mass/volume] in Serum or PlasmaOrdered By: Jake House on 45-41-6729Rknp nitrogen [Mass/Vol]18 mg/dL Normal7-25St. [facility] HospitalComment on above:Performed By: #### LIPID, CMP, TSH3 wRFLX, URMACRERAT #### [facility] [address] [place] [address] USAUrine microalbumin/creatinine mass ratioOrdered By: Jake House on 16-45-3862Jafjkya/Creatinine DL <= 20 mg/L (U) [Mass ratio]TNP St. Francis HospitalComment on above:Test not performedMM screening mammo BI w/CADon 62-04-3488BG [facility] [place] [address] [place] [address] Mammography Report Signed Patient: Alana Nation MR#: [id number] : 1970 Acct:[id number] Age/Sex: 53 / F ADM Date: 02/25/24 Loc: [place] Room: Type: [facility] Attending Dr: Ailyn Willis DO Copies to: [...] Yumiko Waddell M.D.02/27/2024 6:23 AM Dictation Location: [facility] Transcribed By: KAT 02/27/24622 Dictated By: Yumiko Waddell MD 02/27/24618 Signed By: 02/27/24622[facility] KxlowOxP2g HPLC (Bld) [Mass fraction] on 21-88-0254ClT1n (Bld) [Mass fraction]7.7 %St. [facility] HospitalNo Panel Informationon 27-59-2373Xqfvuln Xnvaqkb811ZnivgzfltSt. Francis HospitalA1C with Estimated Average Gluon 74-82-5920BwL9s (Bld) [Mass fraction] 7.900 %High4.3-5.6 %Zykis Other HbA1c (Bld) [Mass fraction]180 mg/dLNoYgle [employer] Other Glucose [Mass/Vol]180 mg/dLAdventHealth Waterman Physician [facility]mmc Holmes CountyComment on above:Order Comment: Reason for Exam Type 2 diabetes mellitus with diabetic chronic kidney diseasResult Comment: PERFORMED BY: [place] [id number] PATHOLOGIST HEEL SHAVER ELE BARRERA M.D.Performed By: #### A1C [facility] #### [place] [address] USAGlucose - FINGER STICKon 20-11-6242Midpwnn [Mass/Vol]206 mg/dLMartensdale [employer] Other Glucose mean value [Mass/volume] in Blood Estimated from glycated hemoglobinOrdered By: Jake House on 34-98-4170Tzwhals glucose Estimated from glycated hemoglobin (Bld) [Mass/Vol]180 mg/dLSt. Francis HospitalHemoglobin A1c percentageOrdered By: Jake House on 10-06-2023 HbA1c (Bld) [Mass fraction]7.9 %High4.3-5.6FMercy Health St. Charles Hospital Comment on above:Increased risk for diabetes: 5.7 - 6.4diabetes: >6.4glycemic control for adults with diabetes: <7.0Order Comment: Reason for Exam Type 2 diabetes mellitus with diabetic chronic kidney diseasResult Comment: Increased risk for diabetes: 5.7 - 6.4 diabetes: >6.4 glycemic control for adults with diabetes: <7.0Performed By: #### A1C WT eA #### [facility] [address] [place] [id number] USAAlanine aminotransferase [Enzymatic activity/volume] in Serum or PlasmaOrdered By: Tondra Mapus on 92-59-6976PCY [Catalytic activity/Vol]15 U/LNormal7-52St. [facility] HospitalComment on above: Order Comment: Reason for Exam Type 2 diabetes mellitus with diabetic chronic kidney diseasPerformed By: #### LIPID, CMP, TSH3 wRFLX, URMACRERAT #### [facility] [address] [place] [id number] USAAlbumin [Mass/volume] in Serum or Plasma by Bromocresol green (BCG) dye binding methoOrdered By: Tondra Mapus on 03-95-4011Yhpyslc BCG dye [Mass/Vol]4.0 g/dL3.5-5.7FMercy Health St. Charles HospitalAlkaline phosphatase [Enzymatic activity/volume] in Serum or PlasmaOrdered By: Tondra Mapus on 25-32-6717NPV [Catalytic activity/Vol]75 U/ZSwcmly47-694RlwxqcxgvSt. Francis HospitalComment on above:Order Comment: Reason for Exam Type 2 diabetes mellitus with diabetic chronic kidney diseasPerformed By: #### LIPID, CMP, TSH3 wRFLX, URMACRERAT #### [facility] [address] [place] [id number] USAAntithyroglobulin Abon 32-31-1888Zbaijngnyxypdogjt Ab2.5 High0.0-0.9The [facility] Physician GroupComment on above:Result Comment: Thyroglobulin Antibody measured by [employer] Performed at: - [facility] [id number] Enrollment Representative: Hector Finn PhD, Phone: [phone] PERFORMED BY: [place] [address] PATHOLOGIST HEEL SHAVER ELE BARRERA M.D.Performed By: #### TPO, THYGLOB AB #### [facility] , #### T3F, T4F #### [facility] [address] [place] [address] USAAspartate aminotransferase [Enzymatic activity/volume] in Serum or PlasmaOrdered By: Tondra Mapus on 14-60-7887ZRZ [Catalytic activity/Vol]15 U/AIayfzd39-35NfgfoawypSt. Francis HospitalComment on above: Order Comment: Reason for Exam Type 2 diabetes mellitus with diabetic chronic kidney diseasPerformed By: #### LIPID, CMP, TSH3 wRFLX, URMACRERAT #### [facility] [address] [place] [address] USABilirubin.total [Mass/volume] in Serum or PlasmaOrdered By: Tondra Mapus on 96-80-7271Hmgvhiouv [Mass/Vol]0.4 mg/dLNormal0.3-1.0 [facility] [facility] HospitalComment on above:Order Comment: Reason for Exam Type 2 diabetes mellitus with diabetic chronic kidney diseasPerformed By: #### LIPID, CMP, TSH3 wRFLX, URMACRERAT #### [facility] [address] [place] [address] USACalcium [Mass/volume] in Serum or PlasmaOrdered By: Tondra Mapus on 63-23-4917Wueagmw [Mass/Vol]9.2 mg/dLNormal8.6-10.3FMercy Health St. Charles HospitalComment on above:Order Comment: Reason for Exam Type 2 diabetes mellitus with diabetic chronic kidney diseasPerformed By: #### LIPID, CMP, TSH3 wRFLX, URMACRERAT #### [facility] [address] [place], [place] [id number] USACarbon dioxide, total [Moles/volume] in Serum or Plasma Ordered By: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 Encounter Date Diagnosis Assessment Notes Treatment Notes Treatment Clinical Notes Sep, Dietary counseling and surveilla nce (ICD-10 - Z71.3) Eat well, exercise well, be well: dietary and fitness guidelines material was published Sep,Type 2 diabetes mellitus with diabetic chronic kidney disease (ICD- 10 - E11.22)Managing type 2 diabetes material was published 1. Uncontrolled, a Type 2 diabetes with A1c of 7.9% 2. Blood glucose levels according to Engradeipod 5/dexcom g6 cgm download 09/23/2023-10/06/2023: Avg glucose 174. >250-7%, >180-33%, 70-180-60%, <70-0%, <54-0%, GMI 7.5%. Reviewed download with pt, infrequent incidence of hypoglcyemia. Glucose often above target postprandial supper. Added icr 5 pm 1:7.5. Modified correction threshold changed MN/8pm from 130 to 120, 4am 120 to 110. Pt interest in glp1, had used in past with nausea. Discussed with pt gip/glp1 option, reviewed common s/e. No hx pancreatitis/men/mtc. Pt agreeable to sample mounjaro 2.5mg once weekly sample. Pt instrcuted to contact office when finish with sample and will send order for mounjaro 5mg once weekly. Pt given sample tresiba for back up if insulin if off pump, reviewed dosing tresiba 31 units once daily; mustwait 24 hours before restarting insulin pump. Pt was also given handouts for skin solutions- see attached. 3. Patient is alert, oriented and receptive to making changes or counseling. Notes: Seen for an assessment of current glucose pattern, changes in treatment plan, counseling andcoordination of care related to diabetes, risks, and benefits of treatment, medications, and side effects. TOPICS REVIEWED: 1. Time was spent reviewing: a. Basic concepts of diabetes, progressive beta cell , concepts of basal/bolus/corrective insulin requirements. Basal: The goal is fasting [...] or sores that do not appear to behealing. 4. Meter: Plan to check blood glucose: [...] provider. Refills should be requested at the timeof your visit. Sep,Hyperlipidemia (ICD-10 - E78.5)Managing your cholesterol material was published 09/22 LDL 96 at goal, on statin Sep,HTN (hypertension) (ICD-10 - I10)Managing high blood pressure material was published on arb Sep,Long term (current) use of insulin (ICD-10 - Z79.4) Sep,Hypothyroid (ICD-10 - E03.9)Hypothyroidism material was published Keep f/u with Dr. Nuñez Sep,Vitamin B 12 deficiency (ICD-10 - E53.8)Good food sources of vitamin B12 material was published 08/2022 Vit. B 12 479 at target Sep,Insulin pump titration (ICD-10 - Z46.81)Using an insulin pump material was published Omnipod 5 dexcom g6 cgm Basal MN 1.3 units/hr (TBI 31.2 units/day) ICR MN 1:8 added 5pm 1:7.5 ISF MN 1:30 Active insulin time 4 hours MN 110/130 changed 110/120, 4am 110/120 changed to 110/110, 8pm 110/130 changed 110/120 Sep,Hypoglycemia (ICD-10 - E16.2)Low blood glucose and diabetes material was published Sep,MI 32.0-32.9,adult (ICD-10 - Z68.32) 1 pound weight loss from last visit, continue with weight loss efforts [facility] Other 08-30-2023 Evaluation note* Encounter Date Diagnosis Assessment Notes Treatment Notes Treatment Clinical Notes May, Dietary counseling and surveilla nce (ICD-10 - Z71.3) Eat well, exercise well, be well: dietary and fitness guidelines material was published May,Type 2 diabetes mellitus with diabetic chronic kidney disease (ICD- 10 - E11.22)Managing type 2 diabetes material was published 1. Uncontrolled, a Type 2 diabetes with A1c of 7.3% 2. Blood glucose levels according to omnipod 5/dexcom g6 cgm download 06/16/2023- 06/29/2023: Avg glucose 171. >250-4%, >180-33%, 70-180-63%, <70-0%, <54-0%. Reviewed download with pt, infrequent incidence of hypoglcyemia. TBI decreased. Pt asking for correction threshold changed from 140 to 130. Changes to basal/correction threshold changed- see below. 3. Patient is alert, oriented and receptive to making changes or counseling. Notes: Seen for an assessment of current glucose pattern, changes in treatment plan, counseling andcoordination of care related to diabetes, risks, and benefits of treatment, medications, and side effects. TOPICS REVIEWED: 1. Time was spent reviewing: a. Basic concepts of diabetes, progressive beta cell , concepts of basal/bolus/corrective insulin requirements. Basal: The goal is fasting [...] or sores that do not appear to behealing. 4. Meter: Plan to check blood glucose: [...] provider. Refills should be requested at the timeof your visit. May,Hyperlipidemia (ICD-10 - E78.5)Managing your cholesterol material was published 09/21 LDL 77 at goal, on statin May,HTN (hypertension) (ICD-10 - I10)Managing high blood pressure material was published on arb May,Long term (current) use of insulin (ICD-10 - Z79.4) May,Hypothyroid (ICD-10 - E03.9)Hypothyroidism material was published Keep f/u with Dr. Nuñez May,Vitamin B 12 deficiency (ICD-10 - E53.8)Good food sources of vitamin B12 material was published 08/2022 Vit. B 12 479 at target May,Insulin pump titration (ICD-10 - Z46.81)Using an insulin pump material was published Omnipod 5 dexcom g6 cgm Basal MN 1.55 changed to 1.3 units/hr (TBI 31.2 units/day) ICR MN 1:8 ISF MN 1:30 Active insulin time 4 hours MN 110/140 changed 110/130, 4am 110/120, 8pm 110/140 changed 110/130 May,Hypoglycemia (ICD-10 - E16.2)Low blood glucose and diabetes material was published May,MI 32.0-32.9,adult (ICD-10 - Z68.32) 5 pound weight loss from last visit, continue with weight loss efforts [facility] Other [id number] Note [id number]#1.00[facility]08-15-2023 [id number]#1.00[facility] 06-13-2023 NoteProcedure: Release of trigger [...] [Verified on: 06/13/2023 14:15 EDT] Hernesto Mckenzie [facility]08-14-2023 [facility] SURGERY Clinical Discharge Summary PERSON INFORMATION Name VERONICA NATION Age 52 Years 1970 Sex FEMALE Language Croatian PCP AILYN WILLIS Marital Status Phone Med Service Ambulatory Surgery Acct# Arrival 06/13/2023 10:55:49 Visit Reason SURGERY-LEFT RING TRIGGER FINGER RELEASE Acuity LOS 006 01:18 Address: [address] [place] [address] Comment: PROVIDER INFORMATION VITALS INFORMATION Vital Sign [...] Follow up: With: Address: When: STEFANY MARTINEZ [address] [place] [address], [address] [place] [id number] [facility] (1) 06/20/2023 9:15 AM DIAGNOSIS Trigger finger, left ring finger Comment: PHYS DO (more content not included)...[id number] Evaluation note* Encounter Date Diagnosis Assessment Notes Treatment Notes Treatment Clinical Notes Apr, Toe pain, right (ICD-10 - M79.67 4) Apr,ontusion of right great toe without damage to nail, initial encounter (ICD-10 - S90.111A)XR done, no acute bony abnormality, discussed final report c pt while in clinic. advised pt to continue with RICE therapy. otc ibuprofen/tylenol prn for pain. ice/warm compresses as directed. pt declined post-op shoe or crutches at this time. weight bearing as tolerated. immediate eval if warning symptoms of neurovascular compromise. otherwise follow up with PCP if new/worsening symptoms [facility] Other 04-17-2023 Evaluation note* Encounter Date Diagnosis Assessment Notes Treatment Notes Treatment Clinical Notes Jan, Hypothyroidism (ICD-10 - E03.9) [facility] Other 02-15-2023 Evaluation note* Encounter Date Diagnosis Assessment Notes Treatment Notes Treatment Clinical Notes Dec, Dietary counseling and surveilla nce (ICD-10 - Z71.3) Eat well, exercise well, be well: dietary and fitness guidelines material was published Dec,Type 2 diabetes mellitus with diabetic chronic kidney disease (ICD- 10 - E11.22)Managing type 2 diabetes material was published 1. Uncontrolled, a Type 2 diabetes with A1c of 7.6% 2. Blood glucose levels according to omnipod 5/dexcom g6 cgm download 12/02/2022- 12/15/2022: Avg glucose 173. >250-10%, >180-31%, 70-180-59%, <70-0%, <54-0%. Reviewed download with pt, infrequent incidence of hypoglcyemia with switch to omnipod 5. Will modify basal settings/target/corrective settings- see below. 3. Patient is alert, oriented and receptive to making changes or counseling. Notes: Seen for an assessment of current glucose pattern, changes in treatment plan, counseling andcoordination of care related to diabetes, risks, and benefits of treatment, medications, and side effects. TOPICS REVIEWED: 1. Time was spent reviewing: a. Basic concepts of diabetes, progressive beta cell , concepts of basal/bolus/corrective insulin requirements. Basal: The goal is fasting [...] or sores that do not appear to behealing. 4. Meter: Plan to check blood glucose: Please check blood glucose levels 4 times/day. Back to back meals reveal effectiveness of bolus dosing. 5. [facility] Contact office if any issues or concerns with patterns of hypoglycemia, hyperglycemia, or diabetes medication issues. 6. Prescriptions: RX request for Gvoke Hypo Pen/levothyroxine to [facility] in [place] 12/15/22 7. Prescriptions will not be filled unless you are compliant with follow up appointments or have a follow up appointment scheduled as ordered by your provider. Refills should be requested at the timeof your visit. Dec,Hyperlipidemia (ICD-10 - E78.5)Managing your cholesterol material was published 09/21 LDL 77 at goal, on statin Dec,HTN (hypertension) (ICD-10 - I10)Managing high blood pressure material was published on arb Dec,Long term (current) use of insulin (ICD-10 - Z79.4) Dec,Hypothyroid (ICD-10 - E03.9)Hypothyroidism material was published 12/13/2022 TSH 0.19, ft4 1.28- reduce levothyroxine from 150 to 137 mcg once daily- recheck labs 6 weeks. Discussed with pt will recommend referral to endocrinology for thyroid management. Pt agreeable. Referral sent to Dr. Nuñez Dec,Vitamin B 12 deficiency (ICD-10 - E53.8)Good food sources of vitamin B12 material was published 08/2022 Vit. B 12 479 at target Dec,MI 33.0-33.9,adult (ICD-10 - Z68.33) Dec,Insulin pump titration (ICD-10 - Z46.81)Using an insulin pump material was published Omnipod 5 dexcom g6 cgm Basal MN 1.65, 8am 1.75, 10 am 1.55, 6pm 1.65 changed to 1.55 units/hr (TBI 37.2 units/day) ICR MN 1:8 ISF MN 1:30 Active insulin time 4 hours MN 120/140 changed 110/140 4am 110/110 changed 110/120, 8pm 120/140 changed 110/140 Dec,Hypoglycemia (ICD-10 - E16.2)Low blood glucose and diabetes material was published [facility] Other 11-01-2022 Evaluation note* Encounter Date Diagnosis Assessment Notes Treatment Notes Treatment Clinical Notes Aug, Hypothyroidism (ICD-10 - E03.9) [facility] Other 09-07-2022 Evaluation note* Encounter Date Diagnosis Assessment Notes Treatment Notes Treatment Clinical Notes Jul, Contact dermatitis, unspecified contact dermatitis type, unspecified trigger (ICD-10 - L25.9) Drink plenty fluids, get plenty of rest. Continue home medications as prescribed. Take the prednisone as prescribed until gone. You may stop the prednisone if your blood sugars go too high. Apply tryw-uzh-clilwsa antibiotic ointment to the rash 2-3 times a day. Follow-up with your family physician if no improvement in 2 to 3 days. Jul,therContact dermatitis home care material was printed [facility] Other 08-30-2022 Evaluation note* Encounter Date Diagnosis Assessment Notes Treatment Notes Treatment Clinical Notes May, Hypothyroid (ICD-10 - E03.9) [facility] Other 07-25-2022 Evaluation note* Encounter Date Diagnosis Assessment Notes Treatment Notes Treatment Clinical Notes Apr, Dietary counseling and surveilla nce (ICD-10 - Z71.3) Eat well, exercise well, be well: dietary and fitness guidelines material was published Apr,Type 2 diabetes mellitus with diabetic chronic kidney disease (ICD- 10 - E11.22)Managing type 2 diabetes material was published 1. Controlled, a Type 2 diabetes with A1c of 7.0% 2. Blood glucose levels according to kellen 2 cgm download 05/11/2022-05/24/2022: Avg glucose 150. >250-6%, >180-22%, 70-180-67%, <70-5%, [...] interested she will need to notify through podderacct. 3. Patient is alert, oriented and receptive to making changes or counseling. Notes: Seen for an assessment of current glucose pattern, changes in treatment plan, counseling andcoordination of care related to diabetes, risks, and benefits of treatment, medications, and side effects. TOPICS REVIEWED: 1. Time was spent reviewing: a. Basic concepts of diabetes, progressive beta cell , concepts of basal/bolus/corrective insulin requirements. Basal: The goal is fasting [...] or sores that do not appear to behealing. 4. Meter: Plan to check blood glucose: Please check blood glucose levels 4 times/day. Back to back meals reveal effectiveness of bolus dosing. 5. [facility]. Contact office if any issues or concerns with patterns of hypoglycemia, hyperglycemia, or diabetes medication issues. 6. Prescriptions: Will call when needed. Apr,Hyperlipidemia (ICD-10 - E78.5)Managing your cholesterol material was published 06/20 LDL 87 at goal, on statin Apr,HTN (hypertension) (ICD-10 - I10)Managing high blood pressure material was published on arb Apr,Long term (current) use of insulin (ICD-10 - Z79.4) Apr,Hypothyroid (ICD-10 - E03.9)Hypothyroidism material was published 08/2021 TSH 1.18, ft4 1.01 Apr,Vitamin B 12 deficiency (ICD-10 - E53.8)Good food sources of vitamin B12 material was published 05/2021 Vit. 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 Uncontrolled, a Type 2 diabetes with A1c of 7.1% 2. Blood glucose levels according to kellen 2 cgm download 01/18/2022-01/31/2022: Avg glucose 148. >250-6%, >180-91%, 70-180-71%, <70-4%, [...] glucose pattern, changes in treatment plan, counseling andcoordination of care related to diabetes, risks, and benefits of treatment, medications, and side effects. TOPICS REVIEWED: 1. Time was spent reviewing: a. Basic concepts of diabetes, progressive beta cell , concepts of basal/bolus/corrective insulin requirements. Basal: The goal is fasting [...] or sores that do not appear to behealing. 4. Meter: Plan to check blood glucose: Please check blood glucose levels 4 times/day. Back to back meals reveal effectiveness of bolus dosing. 5. [facility]. Contact office if any issues or concerns with patterns of hypoglycemia, hyperglycemia, or diabetes medication issues. 6. Prescriptions: Will call when needed. Jan,Hyperlipidemia (ICD-10 - E78.5) Managing your cholesterol material was published 06/20 LDL 87 at goal, on statin Jan,HTN (hypertension) (ICD-10 - I10) Managing high blood pressure material was published on arb Jan,Long term (current) use of insulin (ICD-10 - Z79.4) Jan,Hypothyroid (ICD-10 - E03.9) Hypothyroidism material was published 08/2021 TSH 1.18, ft4 1.01 Jan,Vitamin B 12 deficiency (ICD-10 - E53.8) Good food sources of vitamin B12 material was published 05/2021 Vit. B 12 451 at target Jan,Insulin pump titration (ICD-10 - Z46.81) Using an insulin pump material was published Omnipod Basal MN 1.65 changed to 1.6, 8am 1.8, 10 am 1.5, 6pm 1.7 (TBI 38.6 units/day) ICR MN 1:8 ISF MN 1:27 Active insulin time 4 hours MN 120/140 4am 90/110, 8pm 120/140 Jan,MI 32.0-32.9,adult (ICD-10 - Z68.32) Deciphering the nutrition facts label material was published 2 pound weight loss from last visit, continue with weight loss efforts [facility] Other 02-24-2022 History of Present illness Narrative* Jocy Damon, PT - 12/24/2021 4:30 PM EST Images from the original note were not included. [facility] Outpatient Physical Therapy Daily Note Date: 12/24/2021 [...] program of trunk/hip stretching and postural strengthening Alf Goals - Time Frame for long term care phlebotomist goals : 12 visits long term care phlebotomist goal 1: Decrease subjective lumbar/right hip pain to < 3/10 with work activities of standing/walking long term care phlebotomist goal 2: Trunk and right hip mobility without discomfort USP goal 3: Complete lifting from knee to waist up to 30# Post Treatment Pain: 1/10 Time In: 1630 Time Out : 1705 Timed Code Treatment Minutes: 35 Minutes Total Treatment Time: 35 Minutes JOCY DAMON PT Date: 12/24/[address] [facility] Work Phone: 1(838) 864-547202-02-2022 History of Present illness Narrative* Jocy Damon PT - 2021 9:45 AM EST Images from the original note were not included. [facility] Outpatient Physical Therapy Evaluation Date: 2021 Patient: [...] for fracture. 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 She notes continued lumbar pain along with right lateral hip pain. She originally experienced radaiting pain to knee howeve this has decreased/resolved. 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 - [employer] Home Leisure & Hobbies: Active with daily household [...] program of trunk/hip stretching and postural strengthening USP goals Time Frame for long term care phlebotomist goals : 12 visits USP goal 1: Decrease subjective lumbar/right hip pain to < 3/10 with work activities of standing/walking long term care phlebotomist goal 2: Trunk and right hip mobility without discomfort USP goal 3: Complete lifting from knee to waist up to 30# Patient's Goal: Get rid of pain and return to activity Timed Code Treatment Minutes: 0 Minutes Total Treatment Time: 50 Time In: 0950 Time Out: 1040 JOCY DAMON PT Date: 2021 documented in this [employer] Work Phone: 1(472) 821-950112-15-2021 Evaluation note* Encounter Date Diagnosis Assessment Notes Treatment Notes Treatment Clinical Notes Sep, Dietary counseling and surveilla nce (ICD-10 - Z71.3) Eat well, exercise well, be well: dietary and fitness guidelines material was published Sep,Type 2 diabetes mellitus with diabetic chronic kidney disease (ICD- 10 - E11.22) Managing type 2 diabetes material was published Blood sugar 50 at 3:45pm. Pt reports eating small bag of veggie straws and 2 snack size snickers at3:20pm. Recheck glucose 98. 1. Controlled, a Type 2 diabetes with A1c of 6.6% 2. Blood glucose levels according to [employer] 2 cgm download 10/01/2021-10/14/2021: Avg glucose 121. >250-0%, >180-11%, 70-180-81%, <70-7%, <54-1%. CV 36.4%. Reviewed download with pt, noted several glucose readings under target 12pm to 8pm, will modify basal and icr settings, see below. Note: could not afford dexcom g6. 3. Patient is alert, oriented and receptive to making changes or counseling. Notes: Seen for an assessment of current glucose pattern, changes in treatment plan, counseling andcoordination of care related to diabetes, risks, and benefits of treatment, medications, and side effects. TOPICS REVIEWED: 1. Time was spent reviewing: a. Basic concepts of diabetes, progressive beta cell , concepts of basal/bolus/corrective insulin requirements. Basal: The goal is fasting [...] or sores that do not appear to behealing. 4. Meter: Plan to check blood glucose: Please check blood glucose levels 4 times/day. Back to back meals reveal effectiveness of bolus dosing. 5. [facility]. Contact office if any issues or concerns with patterns of hypoglycemia, hyperglycemia, or diabetes medication issues. 6. Prescriptions: Sent levothyroxine to [facility]. Sep,Hyperlipidemia (ICD-10 - E78.5) Managing your cholesterol material was published 06/20 LDL 87 at goal, on statin Sep,HTN (hypertension) (ICD-10 - I10) Managing high blood pressure material was published on arb Sep,ong term (current) use of insulin (ICD-10 - Z79.4) Sep,Hypothyroid (ICD-10 - E03.9) Hypothyroidism material was published 08/2021 TSH 1.18, ft4 1.01 Sep,Vitamin B 12 deficiency (ICD-10 - E53.8) Good food sources of vitamin B12 material was published 05/2021 Vit. B 12 451 at target Sep,Insulin pump titration (ICD-10 - Z46.81) Using an insulin pump material was published Omnipod Basal MN 1.65, 8am 1.8, 10 am 1.6 changed to 1.5, 6pm 1.8 changed to 1.7 (TBI 39 units/day) ICR MN 1:7 changed to 1:8 ISF MN 1:27 Active insulin time 4 hours MN 120/140 4am 90/110, 8pm 120/140 Sep,MI 32.0-32.9,adult (ICD-10 - Z68.32) Deciphering the nutrition facts label material was published 7 pound weight loss from last visit, continue with weight loss efforts [facility] [employer] Other Chief complaint+Reason for visit Narrative* Chief Complaint Screening METERReason for VisitBMI 34.0-34.9,adult Dietary counseling and surveillance Hyperlipidemia LDL goal <100 Hypertension Hypothyroidism Insulin pump in place Type 2 diabetes mellitus [facility] Work Phone: Evaluation noteNo InformationNortEdgewood Surgical Hospital [employer] Other Evaluation noteNo assessment information available [facility] Work Phone: Evaluation note* Diagnosis Onset Date Resolution Status Encounter for screening mammogram for ma lignant neoplasm of breast acuteWell adult examacuteBMI 34.0-34.9,adultacuteDietary counseling and surveillanceacuteHyperlipidemia LDL goal <100acuteHypertensionacute HypothyroidismacuteInsulin pump in placeacuteType [address] [facility] Work Phone: Evaluation note* Diagnosis Onset Date Resolution Status BMI 34.0-34.9,adult acuteDietary counseling and surveillanceacuteHyperlipidemia LDL goal <100acute HypertensionacuteHypothyroidismacuteInsulin pump in placeacuteType [address] [facility] Work Phone: Evaluation note* Diagnosis Onset Date Resolution Status BMI 33.0-33.9,adult acuteDietary counseling and surveillanceacuteHyperlipidemia LDL goal <100acute HypertensionacuteHypothyroidismacuteInsulin pump in placeacuteType 2 diabetes mellitusacute [facility] Work Phone: Evaluation note* Diagnosis Onset Date Resolution Status Admit Date BMI 33.0-33.9,adult acuteJanuary 2024 7:23amDietary counseling and surveillanceacuteJanuary 2024 7:23amHyperlipidemia LDL goal <100acuteJanuary 2024 7:23am HypertensionacuteJanuary 2024 7:23amHypothyroidismacuteJanuary 2024 7:23amInsulin pump in placeacuteJanuary 2024 7:23amType 2 diabetes mellitusacuteJanuary 2024 7:23am [facility] Work Phone: Evaluation note* Diagnosis Onset Date Resolution Status Admit Date Dietary counseling and surveillance acuteAugust 2024 7:25amHyperlipidemia LDL goal <100acuteAugust 2024 7:25amHypertensionacuteAugust 2024 7:25amHypothyroidismacuteAugust 2024 7:25amInsulin pump titrationacuteAugust 2024 7:25amType 2 diabetes mellitusacuteAugust 2024 7:25amBMI 30.0-30.9,adultinactiveAugust 2024 7:25am [facility] Work Phone: History general Narrative - Reported* Type Description Date Medical History DM2 1995 Medical Historyhypothyroidism 1996Medical HistoryLt. shoulder adhesive capsulitisMedical HistorymenopauseMedical HistoryBack Injury - Sciatic damage - work related Dr. Lance Montanez HealthMedical HistoryHLPMedical HistoryFx'd Right foot - [employer] - Dr. Barboza (Podiatry)Medical Rfkdjew69/2015 Insulin Pump & Continuous Glucose SensorSurgical Historyleap cone-1/3 cervix removed for high risk abnormal [id number] Fktpkxtsxpojwwcprgsw6106Dscjprup HistoryLt shoulder manipulation and arthroscopy Dr Omega Lin2011Surgical History [id number] Historyleft thumb reconstructive [id number] Hospitalization Historyas aboveHospitalization HistoryCHILD X'2 Z[employer] Other History general Narrative - Reported* Type Description Date Medical History DM2 1995 Medical Historyhypothyroidism 1996Medical HistoryLt. shoulder adhesive capsulitisMedical HistorymenopauseMedical HistoryBack Injury - Sciatic damage - work related Dr. Lance Montanez HealthMedical HistoryHLPMedical HistoryFx'd Right foot - [employer] - Dr. Barboza (Podiatry)Medical Jepaten53/2015 Insulin Pump & Continuous Glucose SensorSurgical Historyleap cone-1/3 cervix removed for high risk abnormal [id number] Wovdviuwwquhtsfnbxmx2135Lokugguu HistoryLt shoulder manipulation and arthroscopy Dr Omega Lin2011Surgical History hthcxgpjultetax1195Cdspjhhy Historyleft thumb reconstructive tjuzflj9628Prdkumnh HistoryLeft ring finger trigger zxukmbv14/14/23Hospitalization Historyas above Hospitalization HistoryCHILD XDocSpera2 [employer]ykis Other Reason for referral (narrative)No reason for referral information availableMount St. [facility] Work Phone: Assessments No Assessments Information [...] needs rfs, not seen x 2 yrs METERReason for VisitEncounter for screening mammogram for malignant neoplasm of breast Well adult exam BMI 34.0-34.9,adult Dietary counseling and surveillance Hyperlipidemia LDL goal <100 Hypertension Hypothyroidism Insulin pump in place Type 2 diabetes mellitus Chief Complaint e11.9 z79.4 e78.5 Chief Complaint e11.9 z79.4 e78.5 3 month f/u-METERReason for VisitBMI 34.0-34.9,adult Dietary counseling and surveillance Hyperlipidemia LDL goal <100 Hypertension Hypothyroidism Insulin pump in place Type 2 diabetes mellitus Chief Complaint e11.9 z79.4 e78.5 3 month f/u-METER e11.22 n18.31 z79.4Reason for VisitBMI 33.0-33.9,adult Dietary counseling and surveillance Hyperlipidemia LDL [...] 7:23am Type 2 diabetes mellitus November 13, 2 025 7:23am Chief Complaint Admit Date 3 month [...] BMI 30.0-30.9,adult June 05, 2025 7:2 5am Chief Complaint Admit Date 3 month meter on phone June 05, 2025 7:25am ERFU- chest pains August 13, 2025 3 :19pm Reason for Visit Admit Date BMI 29.0-29.9,adult June 05, 2025 7:2 5am Dietary counseling and surveillance Augu st 2024 7:25am Hyperlipidemia LDL goal <100 June 05, 2025 7:25am Hypertension June 05, 2025 7:2 5am Hypothyroidism June 05, 2025 7:2 5am Insulin pump titration June 05, 2025 7:25am Type 2 diabetes mellitus June 05 7:25am Summary Purpose Family History No Family History Records FoundNo Family History Records FoundNo Family History Records FoundNo Family History Records Found Reason for Referral Reason Hypothyroidism Diagnosis 1 Hypothyroidism (E03. 9) Referral Organization [facility] Referring Provider First Name Jake [...] section and content) DATE CREATED AUTHOR 10/31/2021 [facility] DATE CREATED AUTHOR AUTHOR'S ORGANIZ ATION 12/25/2021 [facility] DATE CREATED AUTHOR AUTHOR'S ORGANIZ ATION 06/17/2023 [facility] DATE CREATED AUTHOR AUTHOR'S ORGANIZ ATION 09/03/2024 [facility] Reason for Visit (unrecogniz ed section and content) SpecialtyDiagnoses / ProceduresReferred By ContactReferred To ContactPhysical Therapy Procedures eval and treat Marlin Phan, 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 - CO[employer] 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 [address] [place] [address] [facility] [address] [place] [address] Referral IDStatusReasonStart DateExpiration DateVisits RequestedVisits [id number] IDStatusReasonStart Date Expiration DateVisits RequestedVisits [id number] Review11/24/2021 Care Teams (unrecognized sec tion and content) Team Status: Active Member Role Status Dates Ailyn Willis DO Primary Care Provider Active Team Status: Inactive Member Role Status Dates Ailyn Willis DO Primary Care Provider Active Start: September 26, 2023 End: September 26hmBharati Garciaending ProviderActiveStart: September 26, 2023 End: September 26, 2023Tondra Dexter House , APRNReferring ProviderActiveStart: September 26, 2023 End: September 26, 2023 Team Status: Inactive Member Role Status Dates Jake House , ACID SPLICER Attending Provider Active Start: October 06, 2023 End: October 06, 2023 Team Status: Inactive Member Role Status Dates Ailyn Willis DO Primary Care Provider Active Start: October 06, 2023 End: October 06, 2023Tona Dexter House , APRNAttending ProviderActiveStart: October 06, 2023 End: October 06, 2023Team MemberRelationshipSpecialtyStart DateEnd Date Ailyn Willis, DO PCP - GeneralFamily Wlsultfc85/29/21Team MemberRelationshipSpecialtyStart Date End Date Ailyn Willis, DO PCP - GeneralFamily Wdafuqdq20/29/21Team MemberRelationshipSpecialtyStart Date End Date Ailyn Willis, DO PCP - GeneralFamily Xfcnocab39/29/21 Team Status: Inactive Member Role Status Dates Ailyn Willis DO Primary Care Provider Active Kaina Dexter House , Frieda ProviderActive Team Status: Active Member Role Status Dates Ailyn Willis DO Primary Care Provider Active Tondra Dexter oHuse , APRNAttending ProviderActive Team Status: Inactive Member Role Status Dates Ailyn Willis DO Primary Care Provider Active Joey Palm ProviderActive Team Status: Inactive Member Role Status Dates Ailyn Willis DO Primary Care Provid er, Attending Provider Active Start: January 02, 2024 End: January 02, 2024 Team Status: Inactive Member Role Status Dates Ailyn Willis DO Primary Care Provider Active Start: January 12, 2024 End: January 12, 2024Tondra Dexter House , APRNAttenthalia ProviderActiveStart: January 12, 2024 End: January 12, 2024 Team Status: Inactive Member Role Status Dates Ailyn Willis DO Primary Care Provid er, Attending Provider Active Start: February 25, 2024 End: February 25, 2024 Team Status: Inactive Member Role Status Dates Ailyn Willis DO Primary Care Provider Active Start: May 01, 2024 End: May 01, 2024Tondra K Mapus , APRNAttending ProviderActiveStart: May 01, 2024 End: May 01, 2024 Team Status: Inactive Member Role Status Dates Ailyn Willis DO Primary Care Provider Active Start: August 04, 2024 End: August 04, 2024Tondra K Mapus , APRNAttending ProviderActiveStart: August 04, 2024 End: August 04, 2024 Team Status: Inactive Member Role Status Dates Ailyn Willis DO Primary Care Provider Active Start: August 09, 2024 End: August 09, 2024Tondra K Mapus , APRNAttending ProviderActiveStart: August 09, 2024 End: August 09, 2024 Team Status: Active Member Role Status Dates Ailyn Willis DO Primary Care Provider Active Start: August 07, 2024 Dario Shaw DOAttending ProviderActiveStart: August 07, 2024 Team Status: Inactive Member Role Status Dates Ailyn Willis DO Primary Care Provider Active Start: September 01, 2024 End: September 01, 2024Tondra K Mapus , APRNAttending ProviderActiveStart: September 01, 2024 End: September 01, 2024 Team Status: Inactive Member Role Status Dates Ailyn Willis DO Primary Care Provider Active Start: November 13, 2024 End: November 13, 2024Tondra K Mapus , APRNAttending ProviderActiveStart: November 13, 2024 End: November 13, 2024 Team Status: Inactive Member Role Status Dates Ailyn Willis DO Primary Care Provider Active Start: June 05, 2025 End: June 05, 2025Tondra K Mapus , APRNAttending ProviderActiveStart: June 05, 2025 End: June 05, 2025 Team Status: Inactive Member Role Status Dates Ailyn Willis DO Primary Care Provider Active Start: August 13, 2025 End: August 13, 2025Thseema Willis DOAttending ProviderActiveStart: August 13, 2025 End: August 13, 2025 Goals (unrecognized section and content) Goals [...] BE BASED ON THE PRIMARY CLINICAL RECORDS. [facility]. provides no warranty or guarantee of the accuracy or completeness of information in this document.
[2025-10-12 09:36] LABS: Alanine Aminotransferase 28 U/L (14-59); Albumin Globulin Ratio 0.8; Albumin Level 3.5 g/dL (3.4-5.0); Alkaline Phosphatase 84 U/L (46-116); Anion Gap 11.6; Aspartate Amino Transferase 18 U/L (15-37); Blood Urea Nitrogen 33.0 mg/dL (7.0-18.0); Calcium 9.3 mg/dL (8.5-10.1); Carbon Dioxide 30.2 mmol/L (21.0-32.0); Chloride 103 mmol/L (98-107); Estimated GFR (African America 48 (>=60 mL/min/1.73m^2); Estimated GFR (Non-African Ame 40 (>=60 mL/min/1.73m^2); Globulin 4.2 g/dL; Glucose 152 mg/dL (74-106); Potassium 4.8 mmol/L (3.5-5.1); Sodium 140 mmol/L (136-145); Total Protein 7.7 g/dL (6.4-8.2)
[2025-10-12 09:37] LABS: Cholesterol 204 mg/dL (<=200); HDL Cholesterol 76 mg/dL (40-60); Thyroid Stimulating Hormone 0.354 uIU/mL (0.358-3.740); Triglycerides 87 mg/dL (<=150); VLDL CHOLESTEROL 17.4 mg/dL
== END 2025-10-12 08:46 | disposition home or self-care (01) ==
PROVIDERS: PCP Family Medicine
DX: E03.9 Hypothyroidism, unspecified (principal); E11.22 Type 2 diabetes mellitus with diabetic chronic kidney disease; N18.31 Chronic kidney disease, stage 3a; Z79.4 Long term (current) use of insulin; E78.5 Hyperlipidemia, unspecified
CPT/HCPCS: 36415; 80053; 80061; 82043; 82570; 84439; 84443